=== PATIENT | male | born 1970 | race Caucasian/White ===

== ENCOUNTER 2018-05-23 14:17 | Inpatient (IN) | payer SELFPAY ==
[~2018-05-23] VITALS: Ht 170.2 cm; Wt 91.5 kg
[2018-05-23 14:24] VITALS: BP 147/91; PULSE 78; RESP 18; TEMP 98.3; O2SAT 98
--- NOTE | 2018-05-23 15:51 | PD ---
HPI Chief Complaint: GI Complaint Time Seen by Provider: 15:45 Travel History International Travel<30 days: No Contact w/Intl Traveler<30days: No Traveled to known affect area: No History of Present Illness HPI 47-year-old male with history of diabetes, presents emergency department for evaluation of epigastric pain with associated nausea and vomiting worsening since yesterday. Pain is constant, intermittently sharp and stabbing. Patient states he has a hiatal hernia and he believes this is the source of his problem. He denies any chest pain or tightness. He has had chills but is uncertain of fever. He states he drinks alcohol occasionally, last drinking on Father's Day. He denies any changes in bowel or bladder. He denies any hematemesis. He has no other symptoms to report. [facility] Past Medical History Diabetes: Yes Social History Alcohol Use: Yes Tobacco Use: No Allergies-Medications (Allergen,Severity, Reaction): Coded Allergies: No Known Allergies (Verified Allergy, Unknown, 05/23/18) Reported Meds & Prescriptions Reported Meds & Active Scripts Active Reported Novolin R Inj (Insulin Human Regular) 1,000 Unit/10 Ml Vial 20 Units SQ BID Review of Systems Except as stated in HPI: all other systems reviewed are Neg Physical Exam Narrative GENERAL: Well-nourished male patient, in no acute distress SKIN: Focused skin assessment warm/dry. HEAD: Atraumatic. Normocephalic. EYES: Pupils equal and round. No scleral icterus. No injection or drainage. ENT: No nasal bleeding or discharge. Mucous membranes pink and moist. NECK: Trachea midline. No JVD. CARDIOVASCULAR: Regular rate and rhythm. No murmur appreciated. RESPIRATORY: No accessory muscle use. Clear to auscultation. Breath sounds equal bilaterally. GASTROINTESTINAL: Abdomen soft, nondistended. Epigastric and left upper quadrant tenderness to palpation. Mild guarding. No rebound tenderness.. Hepatic and splenic margins not palpable. MUSCULOSKELETAL: No obvious deformities. No clubbing. No cyanosis. No edema. NEUROLOGICAL: Awake and alert. No obvious cranial nerve deficits. Motor grossly within normal limits. Normal speech. PSYCHIATRIC: Appropriate mood and affect; insight and judgment normal. Data Data Last Documented VS Vital Signs Date Time Temp Pulse Resp B/P (MAP) Pulse Ox O2 Delivery O2 Flow Rate FiO2 05/23/18 16:03 18 98 Room Air 05/23/18 14:24 98.3 78 147/91 (109) Orders Orders Complete Blood Count With Diff (05/23/18 15:55) Comprehensive Metabolic Panel (05/23/18 15:55) Lipase (05/23/18 15:55) Prothrombin Time / Inr (Pt) (05/23/18 15:55) Act Partial Throm Time (Ptt) (05/23/18 15:55) Urinalysis - C+S If Indicated (05/23/18 15:55) Iv Access Insert/Monitor (05/23/18 15:55) Ecg Monitoring (05/23/18 15:55) Oximetry (05/23/18 15:55) Pantoprazole Inj (Protonix Inj) (05/23/18 16:00) Sodium Chlor 0.9% 1000 Ml Inj (Ns 1000 M (05/23/18 15:55) Sodium Chloride 0.9% Flush (Ns Flush) (05/23/18 16:00) Al-Mag Hy-Si 40-40-4 Mg/Ml Liq (Mag-Al P (05/23/18 16:00) Lidocaine 2% Viscous (Xylocaine 2% Visco (05/23/18 16:00) Ct Abd/Pel W Iv Contrast(Rout) (05/23/18 ) Labs Laboratory Tests Test 05/23/18 16:15 05/23/18 17:00 White Blood Count 8.0 TH/MM3 Red Blood Count 5.10 MIL/MM3 Hemoglobin 15.2 GM/DL Hematocrit 44.5 % Mean Corpuscular Volume 87.4 FL Mean Corpuscular Hemoglobin 29.7 PG Mean Corpuscular Hemoglobin Concent 34.0 % Red Cell Distribution Width 13.5 % Platelet Count 215 TH/MM3 Mean Platelet Volume 9.5 FL Neutrophils (%) (Auto) 80.5 % Lymphocytes (%) (Auto) 12.0 % Monocytes (%) (Auto) 7.1 % Eosinophils (%) (Auto) 0.1 % Basophils (%) (Auto) 0.3 % Neutrophils # (Auto) 6.4 TH/MM3 Lymphocytes # (Auto) 1.0 TH/MM3 Monocytes # (Auto) 0.6 TH/MM3 Eosinophils # (Auto) 0.0 TH/MM3 Basophils # (Auto) 0.0 TH/MM3 CBC Comment DIFF FINAL Differential Comment Prothrombin Time 10.1 SEC Prothromb Time International Ratio 1.0 RATIO Activated Partial Thromboplast Time 23.3 SEC Blood Urea Nitrogen 14 MG/DL Creatinine 0.82 MG/DL Random Glucose 125 MG/DL Total Protein 7.9 GM/DL Albumin 4.0 GM/DL Calcium Level 8.7 MG/DL Alkaline Phosphatase 94 U/L Aspartate Amino Transf (AST/SGOT) 21 U/L Alanine Aminotransferase (ALT/SGPT) 22 U/L Total Bilirubin 0.6 MG/DL Sodium Level 138 MEQ/L Potassium Level 4.1 MEQ/L Chloride Level 105 MEQ/L Carbon Dioxide Level 24.2 MEQ/L Anion Gap 9 MEQ/L Estimat Glomerular Filtration Rate 100 ML/MIN Lipase 5842 U/L Urine Color YELLOW Urine Turbidity HAZY Urine pH 6.0 Urine Specific [place] 1.025 Urine Protein 30 mg/dL Urine Glucose (UA) NEG mg/dL Urine Ketones TRACE mg/dL Urine Occult Blood SMALL Urine Nitrite NEG Urine Bilirubin NEG Urine Urobilinogen LESS THAN 2 mg/dL Urine Leukocyte Esterase NEG Urine RBC 2 /hpf Urine WBC 1 /hpf Urine Mucus MANY /lpf Microscopic Urinalysis Comment CULT NOT INDICATED MDM Medical Decision Making Medical Screen Exam Complete: Yes Emergency Medical Condition: Yes Medical Record Reviewed: Yes Differential Diagnosis Pancreatitis versus cholecystitis versus gastritis versus indigestion Narrative Course 47-year-old male presents to the emergency department for evaluation of epigastric pain with associated nausea and vomiting since yesterday. Patient appears well. He does have epigastric left upper quadrant tenderness to palpation. He is treated for pain Laboratory Tests Test 05/23/18 16:15 05/23/18 17:00 White Blood Count 8.0 TH/MM3 Red Blood Count 5.10 MIL/MM3 Hemoglobin 15.2 GM/DL Hematocrit 44.5 % Mean Corpuscular Volume 87.4 FL Mean Corpuscular Hemoglobin 29.7 PG Mean Corpuscular Hemoglobin Concent 34.0 % Red Cell Distribution Width 13.5 % Platelet Count 215 TH/MM3 Mean Platelet Volume 9.5 FL Neutrophils (%) (Auto) 80.5 % Lymphocytes (%) (Auto) 12.0 % Monocytes (%) (Auto) 7.1 % Eosinophils (%) (Auto) 0.1 % Basophils (%) (Auto) 0.3 % Neutrophils # (Auto) 6.4 TH/MM3 Lymphocytes # (Auto) 1.0 TH/MM3 Monocytes # (Auto) 0.6 TH/MM3 Eosinophils # (Auto) 0.0 TH/MM3 Basophils # (Auto) 0.0 TH/MM3 CBC Comment DIFF FINAL Differential Comment Prothrombin Time 10.1 SEC Prothromb Time International Ratio 1.0 RATIO Activated Partial Thromboplast Time 23.3 SEC Blood Urea Nitrogen 14 MG/DL Creatinine 0.82 MG/DL Random Glucose 125 MG/DL Total Protein 7.9 GM/DL Albumin 4.0 GM/DL Calcium Level 8.7 MG/DL Alkaline Phosphatase 94 U/L Aspartate Amino Transf (AST/SGOT) 21 U/L Alanine Aminotransferase (ALT/SGPT) 22 U/L Total Bilirubin 0.6 MG/DL Sodium Level 138 MEQ/L Potassium Level 4.1 MEQ/L Chloride Level 105 MEQ/L Carbon Dioxide Level 24.2 MEQ/L Anion Gap 9 MEQ/L Estimat Glomerular Filtration Rate 100 ML/MIN Lipase 5842 U/L Urine Color YELLOW Urine Turbidity HAZY Urine pH 6.0 Urine Specific [place] 1.025 Urine Protein 30 mg/dL Urine Glucose (UA) NEG mg/dL Urine Ketones TRACE mg/dL Urine Occult Blood SMALL Urine Nitrite NEG Urine Bilirubin NEG Urine Urobilinogen LESS THAN 2 mg/dL Urine Leukocyte Esterase NEG Urine RBC 2 /hpf Urine WBC 1 /hpf Urine Mucus MANY /lpf Microscopic Urinalysis Comment CULT NOT INDICATED Labs are reviewed. Patient's lipase is 5842. [facility] has been ordered for further evaluation of this. Plan has been discussed with patient. He is in agreement with this plan of care. Diagnosis Primary Impression: Pancreatitis Qualified Codes: K85.90 - Acute pancreatitis without necrosis or infection, unspecified Admitting Information Admitting Physician Requests: Admit Condition: Stable GregoryLeanne cleary AG May 23, 2018 15:51
[2018-05-23] MEDS ORDERED: SODIUM CHLOR 0.9% 1000 ML INJ 1,000 ML IV SCH (15:55)
[2018-05-23] MEDS ORDERED: NOVORP2 SQ (15:57)
[2018-05-23] MEDS ORDERED: ALUMINUM/MAGNESIUM/SIMETH 30 ML CUP PO ONE (16:00)
[2018-05-23] MEDS ORDERED: LIDOCAINE VISCOUS 2% SOLN 15 ML UDC PO ONE (16:00)
[2018-05-23] MEDS ORDERED: SODIUM CHLORIDE 0.9% FLUSH 10 ML FLUSH IV FLUSH PRN ×2 (16:00→18:45)
[2018-05-23] MEDS ORDERED: PANTOPRAZOLE SODIUM 40 MG VIAL IVP ONE (16:00)
[2018-05-23 16:03] VITALS: RESP 18; O2SAT 98
[2018-05-23 16:46] LABS: AUTOMATED NEUTROPHIL # 6.4 TH/MM3 (1.8-7.7); BASOPHIL % 0.3 % (0.0-2.0); EOSINOPHIL % 0.1 % (0.0-4.0); HEMATOCRIT 44.5 % (39.0-51.0); HEMOGLOBIN 15.2 GM/DL (13.0-17.0); MEAN CELL VOLUME 87.4 FL (80.0-100.0); MEAN CORPUSCULAR HEMOGLOBIN 29.7 PG (27.0-34.0); MEAN PLATELET VOLUME 9.5 FL (7.0-11.0); MONO % 7.1 % (0.0-8.0); MONOCYTE # 0.6 TH/MM3 (0-0.9); NEUT % 80.5 % (16.0-70.0); PLATELET COUNT 215 TH/MM3 (150-450); RED CELL DISTRIBUTION WIDTH 13.5 % (11.6-17.2)
[2018-05-23 17:11] LABS: ALKALINE PHOSPHATASE 94 U/L (45-117); PROTHROMBIN TIME - PATIENT 10.1 SEC (9.8-11.6); TOTAL BILIRUBIN ADULT 0.6 MG/DL (0.2-1.0); TOTAL PROTEIN 7.9 GM/DL (6.4-8.2)
[2018-05-23 17:17] LABS: ALT (GPT) 22 U/L (12-78); AST (GOT) 21 U/L (15-37); BICARBONATE 24.2 MEQ/L (21.0-32.0); BLOOD UREA NITROGEN 14 MG/DL (7-18); CALCIUM 8.7 MG/DL (8.5-10.1); CHLORIDE 105 MEQ/L (98-107); CREATININE 0.82 MG/DL (0.60-1.30); GLOMERULAR FILTRATION RATE 100 ML/MIN (>89); GLUCOSE,RANDOM 125 MG/DL (74-106); SODIUM (NA) 138 MEQ/L (136-145)
[2018-05-23 17:39] LABS: BILIRUBIN, URINE NEG (NEG); BLOOD, URINE SMALL (NEG); GLUCOSE,URINE NEG (NEG); KETONE, URINE TRACE mg/dL (NEG); MUCUS URINE MANY /lpf (OCC); NITRITE,URINE NEG (NEG); URINE COLOR YELLOW (YELLW/STRAW); URINE LEUKOCYTE ESTERASE NEG (NEG)
--- NOTE | 2018-05-23 18:06 | PD ---
Physical Exam Narrative I, Dr. Solomon, have reviewed the advance practice practitioner's documentation and am in agreement, met with the patient face to face, made the diagnosis, and the medical decision making was done by me. *My assessment and Findings: Pancreatitis vs. gastritis vs. peptic ulcer disease. hiatal hernia 47yo M with DM and hiatal hernia here with epigastric abdominal pain for 2 days. Associated with nausea and vomiting. Denies any fever. Abdomen is soft , tender in epigastric region. No rebound tenderness or guarding. Labs reviewed, no leukocytosis. Lipase elevated [place] 5842. CT a/p showed acute pancreatitis on chronic pancreatitis. Pt admitted for acute pancreatitis. Data Data Last Documented VS Vital Signs Date Time Temp Pulse Resp B/P (MAP) Pulse Ox O2 Delivery O2 Flow Rate FiO2 05/23/18 19:03 62 17 139/82 (101) 97 05/23/18 18:38 21 05/23/18 16:03 Room Air 05/23/18 14:24 98.3 Orders Orders Complete Blood Count With Diff (05/23/18 15:55) Comprehensive Metabolic Panel (05/23/18 15:55) Lipase (05/23/18 15:55) Prothrombin Time / Inr (Pt) (05/23/18 15:55) Act Partial Throm Time (Ptt) (05/23/18 15:55) Urinalysis - C+S If Indicated (05/23/18 15:55) Iv Access Insert/Monitor (05/23/18 15:55) Ecg Monitoring (05/23/18 15:55) Oximetry (05/23/18 15:55) Pantoprazole Inj (Protonix Inj) (05/23/18 16:00) Sodium Chlor 0.9% 1000 Ml Inj (Ns 1000 M (05/23/18 15:55) Sodium Chloride 0.9% Flush (Ns Flush) (05/23/18 16:00) Al-Mag Hy-Si 40-40-4 Mg/Ml Liq (Mag-Al P (05/23/18 16:00) Lidocaine 2% Viscous (Xylocaine 2% Visco (05/23/18 16:00) Ct Abd/Pel W Iv Contrast(Rout) (05/23/18 ) Morphine Inj (Morphine Inj) (05/23/18 18:15) Ondansetron Odt (Zofran Odt) (05/23/18 18:15) Iohexol 350 Inj (Omnipaque 350 Inj) (05/23/18 18:33) Admit Order (Ed Use Only) (05/23/18 18:34) Bedside Glucose CYNTHIA.CSUGAR (05/23/18 18:33) Blood Glucose Goal (Criteria) (05/23/18 18:33) Hypoglycemia 70 Mg/Dl Or < (05/23/18 18:33) Notify Dr: Other (05/23/18 18:33) Dextrose 50% In Madalyn (Vial) Inj (D50w (Vi (05/23/18 18:45) Glucagon Inj (Glucagon Inj) (05/23/18 18:45) Insulin Aspart Supplemtl Scale (Novolog (05/23/18 21:00) Admit To Inpatient (05/23/18 ) Vital Signs (Adult) Q4H (05/23/18 18:33) Activity Oob With Assistance (05/23/18 18:33) Sodium Chlor 0.9% 1000 Ml Inj (Ns 1000 M (05/23/18 18:33) Sodium Chloride 0.9% Flush (Ns Flush) (05/23/18 18:45) Sodium Chloride 0.9% Flush (Ns Flush) (05/23/18 21:00) Acetaminophen (Tylenol) (05/23/18 18:45) Comprehensive Metabolic Panel (05/24/18 06:00) Complete Blood Count With Diff (05/24/18 06:00) Lipase (05/24/18 06:00) Resp Oxygen Niles C Titrat 1-4 L (05/23/18 ) Case Management Consult (05/23/18 18:33) Scd Bilateral/Knee High CYNTHIA.BID (05/23/18 18:33) Acetaminophen (Tylenol) (05/23/18 18:45) Acetamin-Hydrocod 325-5 Mg (Benavides 5-325 (05/23/18 18:45) Acetamin-Hydrocod 325-7.5 Mg (Benavides 7.5 (05/23/18 18:45) Naloxone Inj (Narcan Inj) (05/23/18 18:45) Docusate Sodium-Senna (Kari-Colace) (05/23/18 21:00) Magnesium Hydroxide Liq (Milk Of Magnesi (05/23/18 18:45) Sennosides (Senokot) (05/23/18 18:45) Bisacodyl Supp (Dulcolax Supp) (05/23/18 18:45) Lactulose Liq (Lactulose Liq) (05/23/18 18:45) Inpatient Certification (05/23/18 ) Morphine Inj (Morphine Inj) (05/23/18 18:45) Physician Name Changes (05/23/18 ) Insulin Human Regular Inj (Novolin R Inj (05/23/18 21:00) Labs Laboratory Tests Test 05/23/18 16:15 05/23/18 17:00 White Blood Count 8.0 TH/MM3 Red Blood Count 5.10 MIL/MM3 Hemoglobin 15.2 GM/DL Hematocrit 44.5 % Mean Corpuscular Volume 87.4 FL Mean Corpuscular Hemoglobin 29.7 PG Mean Corpuscular Hemoglobin Concent 34.0 % Red Cell Distribution Width 13.5 % Platelet Count 215 TH/MM3 Mean Platelet Volume 9.5 FL Neutrophils (%) (Auto) 80.5 % Lymphocytes (%) (Auto) 12.0 % Monocytes (%) (Auto) 7.1 % Eosinophils (%) (Auto) 0.1 % Basophils (%) (Auto) 0.3 % Neutrophils # (Auto) 6.4 TH/MM3 Lymphocytes # (Auto) 1.0 TH/MM3 Monocytes # (Auto) 0.6 TH/MM3 Eosinophils # (Auto) 0.0 TH/MM3 Basophils # (Auto) 0.0 TH/MM3 CBC Comment DIFF FINAL Differential Comment Prothrombin Time 10.1 SEC Prothromb Time International Ratio 1.0 RATIO Activated Partial Thromboplast Time 23.3 SEC Blood Urea Nitrogen 14 MG/DL Creatinine 0.82 MG/DL Random Glucose 125 MG/DL Total Protein 7.9 GM/DL Albumin 4.0 GM/DL Calcium Level 8.7 MG/DL Alkaline Phosphatase 94 U/L Aspartate Amino Transf (AST/SGOT) 21 U/L Alanine Aminotransferase (ALT/SGPT) 22 U/L Total Bilirubin 0.6 MG/DL Sodium Level 138 MEQ/L Potassium Level 4.1 MEQ/L Chloride Level 105 MEQ/L Carbon Dioxide Level 24.2 MEQ/L Anion Gap 9 MEQ/L Estimat Glomerular Filtration Rate 100 ML/MIN Lipase 5842 U/L Urine Color YELLOW Urine Turbidity HAZY Urine pH 6.0 Urine Specific [place] 1.025 Urine Protein 30 mg/dL Urine Glucose (UA) NEG mg/dL Urine Ketones TRACE mg/dL Urine Occult Blood SMALL Urine Nitrite NEG Urine Bilirubin NEG Urine Urobilinogen LESS THAN 2 mg/dL Urine Leukocyte Esterase NEG Urine RBC 2 /hpf Urine WBC 1 /hpf Urine Mucus MANY /lpf Microscopic Urinalysis Comment CULT NOT INDICATED MDM Supervised Visit with SUSANNA: Yes Diagnosis Primary Impression: Acute pancreatitis Qualified Codes: K85.90 - Acute pancreatitis without necrosis or infection, unspecified Admitting Information Admitting Physician Requests: Admit Evangelina Solomon DO May 23, 2018 18:06
[2018-05-23 18:14] VITALS: BP 145/87; PULSE 64; RESP 18; O2SAT 97
[2018-05-23] MEDS ORDERED: ONDANSETRON ODT 4 MG TAB PO ONE (18:15)
[2018-05-23] MEDS ORDERED: MORPHINE SULFATE 4 MG/ML INJ IV PUSH ONE (18:15)
[2018-05-23] MEDS ORDERED: IOHEXOL 350 MG/ML 10 ML VIAL (for RAD DIAG) IVCONTRAST ONE (18:33)
--- NOTE | 2018-05-23 18:42 | RADRPT ---
EXAM DATE: 05/23/2018 6:34 PM EDT AGE/SEX: 47 years / Male INDICATIONS: Epigastric pain and vomiting. CLINICAL DATA: This is the patient's initial encounter. Patient reports that signs and symptoms have been present for 1 day and indicates a pain score of 7/10. MEDICAL/SURGICAL HISTORY: Diabetes. Hiatal hernia. None. ORAL CONTRAST: No oral contrast ingested. RADIATION DOSE: 6.64 CTDI (mGy) COMPARISON: No prior exams available for comparison. TECHNIQUE: Multiple contiguous axial images were obtained through the abdomen and pelvis following b olus infusion of 84 ml Omnipaque 350 (iohexol) nonionic water-soluble contrast as a single exam dos e. No oral contrast ingested. Using automated exposure control and adjustment of the mA and/or kV ac cording to patient size, radiation dose was kept as low as reasonably achievable to obtain optimal di agnostic quality images. DICOM format image data is available electronically for review and comparis on. FINDINGS: Lung bases demonstrate some mild dependent atelectasis. Diffuse mild fatty liver. Spleen, adrenals an d left kidney unremarkable. 2.9 cm right renal cyst. There is chronic pancreatitis with extensive pancreatic calcifications and pancreatic ductal dilatati on to at least 8 mm. There is some stranding around the pancreas also suggesting acute pancreatitis. Some loculated fluid is seen between the pancreatic head in the stomach. It is unclear if this repres ents a gastric diverticulum or less likely a pancreatic pseudocyst. No calcified gallstones. Common bile duct is dilated to about 14 mm. No definite evidence for choledo cholithiasis. CONCLUSION: 1. Findings most characteristic of acute pancreatitis superimposed on chronic pancreatitis with panc reatic ductal dilatation. Stranding is predominantly around the pancreatic head. There is a 3 cm locu lated fluid collection between the pancreas and the stomach, probably a gastric diverticulum. No sign ificant free fluid. No free air. Fatty liver. Electronically signed by: Benton Olivas MD 05/23/2018 6:41 PM EDT
[2018-05-23] MEDS ORDERED: GLUCAGON 1 MG/ML VIAL OTHER PRN (18:45)
[2018-05-23] MEDS ORDERED: MAGNESIUM HYDROXIDE SUSP 30 ML CUP PO PRN (18:45)
[2018-05-23] MEDS ORDERED: MORPHINE SULFATE 4 MG/ML INJ IV PUSH PRN (18:45)
[2018-05-23] MEDS ORDERED: ACETAMINOPHEN 325 MG TAB PO PRN ×2 (18:45)
[2018-05-23] MEDS ORDERED: BISACODYL 10 MG SUPP RECTAL PRN (18:45)
[2018-05-23] MEDS ORDERED: ACETAMINOPHEN/HYDROcodone 325 MG/5 MG TAB PO PRN (18:45)
[2018-05-23] MEDS ORDERED: LACTULOSE SYRUP 20 GM/30 ML CUP PO PRN (18:45)
[2018-05-23] MEDS ORDERED: NALOXONE HCL 0.4 MG/ML AMP IV PUSH PRN (18:45)
[2018-05-23] MEDS ORDERED: SENNOSIDES 8.6 MG TAB PO PRN (18:45)
[2018-05-23] MEDS ORDERED: DEXTROSE 50% IN WATER 50 ML VIAL(D50) IV PUSH PRN (18:45)
[2018-05-23 19:03] VITALS: BP 139/82; PULSE 62; RESP 17; O2SAT 97
--- NOTE | 2018-05-23 19:03 | HHI.HP ---
[facility] No Primary Care Physician Admission Diagnosis Acute pancreatitis Diagnoses: (1) Pancreatitis Diagnosis: Principal (2) Alcohol use Diagnosis: Principal (3) DM (diabetes mellitus) Diagnosis: Principal Travel History International Travel<30 Days: No Contact w/Intl Traveler <30 Da: No Traveled to Known Affected Are: No History of Present Illness This is a 47-year-old [place] Speaking male with PMH of DM, Hiatal Hernia and h/ o Alcohol Abuse who presented to ER with complaints of severe epigastric pain x1 day. History obtained by me from patient directly in [place]. States he has a h/o of alcohol abuse, quit 2 months ago, however had 10-12 beers yesterday. Today had severe epigastric pain which he believed was from his hiatal hernia. Pain is severe, intermittent, 9/10, associated w/ nausea, some vomiting. Denies fever or chills. On arrival, BP 147/91, HR 78, O2 sat 98% on RA, Afebrile. CBC unremarkable. Chemistry essentially unremarkable except for BS 125. Lipase 5842. INR 1.0. UA negative for UTI. CT Abdomen/Pelvis acute pancreatitis superimposed on chronic pancreatitis with pancreatic ductal dilatation, gastric diverticulum. S/p Morphine and Zofran in ER w/ some improvement. Review of Systems Except as stated in HPI: all other systems reviewed are Neg ROS: 14 point review of systems otherwise negative. Past Family Social History Past Medical History PMH: DM, Hiatal Hernia and h/o Alcohol Abuse Past Surgical History PAST SURGICAL HISTORY: Tonsillectomy Allergies: Coded Allergies: No Known Allergies (Verified Allergy, Unknown, 05/23/18) Family History PAST FAMILY HISTORY: Reviewed, positive for DM. Social History PAST SOCIAL HISTORY: Positive for alcohol. Negative for tobacco or drugs. Physical Exam Vital Signs Vital Signs Date Time Temp Pulse Resp B/P (MAP) Pulse Ox O2 Delivery O2 Flow Rate FiO2 05/23/18 18:38 21 05/23/18 18:14 64 18 145/87 (106) 97 05/23/18 16:03 18 98 Room Air 05/23/18 15:55 18 05/23/18 14:24 98.3 78 18 147/91 (802) 98 Physical Exam PE: GENERAL: Pleasant male in no acute distress. Friend at bedside. HEENT: PERRLA, EOMI. No scleral icterus or conjunctival pallor. No lid lag or facial droop. CARDIOVASCULAR: Regular rate and rhythm. No obvious murmurs to auscultation. No chest tenderness to palpation. RESPIRATORY: No obvious rhonchi or wheezing. Clear to auscultation. Breath sounds equal bilaterally. GASTROINTESTINAL: Abdomen soft, epigastric tenderness to palpation, nondistended. BS normal. MUSCULOSKELETAL: Extremities without clubbing, cyanosis, or edema. No obvious deformities. NEUROLOGICAL: Awake, alert and oriented x4. No focal neurologic deficits. Moving both upper and lower extremities spontaneously. Laboratory Laboratory Tests Test 05/23/18 16:15 05/23/18 17:00 White Blood Count 8.0 Red Blood Count 5.10 Hemoglobin 15.2 Hematocrit 44.5 Mean Corpuscular Volume 87.4 Mean Corpuscular Hemoglobin 29.7 Mean Corpuscular Hemoglobin Concent 34.0 Red Cell Distribution Width 13.5 Platelet Count 215 Mean Platelet Volume 9.5 Neutrophils (%) (Auto) 80.5 Lymphocytes (%) (Auto) 12.0 Monocytes (%) (Auto) 7.1 Eosinophils (%) (Auto) 0.1 Basophils (%) (Auto) 0.3 Neutrophils # (Auto) 6.4 Lymphocytes # (Auto) 1.0 Monocytes # (Auto) 0.6 Eosinophils # (Auto) 0.0 Basophils # (Auto) 0.0 CBC Comment DIFF FINAL Differential Comment Prothrombin Time 10.1 Prothromb Time International Ratio 1.0 Activated Partial Thromboplast Time 23.3 Blood Urea Nitrogen 14 Creatinine 0.82 Random Glucose 125 Total Protein 7.9 Albumin 4.0 Calcium Level 8.7 Alkaline Phosphatase 94 Aspartate Amino Transf (AST/SGOT) 21 Alanine Aminotransferase (ALT/SGPT) 22 Total Bilirubin 0.6 Sodium Level 138 Potassium Level 4.1 Chloride Level 105 Carbon Dioxide Level 24.2 Anion Gap 9 Estimat Glomerular Filtration Rate 100 Lipase 5842 Urine Color YELLOW Urine Turbidity HAZY Urine pH 6.0 Urine Specific [place] 1.025 Urine Protein 30 Urine Glucose (UA) NEG Urine Ketones TRACE Urine Occult Blood SMALL Urine Nitrite NEG Urine Bilirubin NEG Urine Urobilinogen LESS THAN 2 Urine Leukocyte Esterase NEG Urine RBC 2 Urine WBC 1 Urine Mucus MANY Microscopic Urinalysis Comment CULT NOT INDICATED Result Diagram: 05/23/18 1615 05/23/18 1615 Caprini VTE Risk Assessment Caprini VTE Risk Assessment: No/Low Risk (score <= 1) Caprini Risk Assessment Model Point Value = 1 Point Value = 2 Point Value = 3 Point Value = 5 Age 41-60 Minor surgery BMI > 25 kg/m2 Swollen legs Varicose veins or History of unexplained or recurrent spontaneous Oral contraceptives or hormone replacement Sepsis (< 1 month) Serious lung disease, including pneumonia (< 1 month) Abnormal pulmonary function Acute myocardial infarction Congestive heart failure (< 1 month) History of inflammatory bowel disease Medical patient at bed rest Age 61-74 Arthroscopic surgery Major open surgery (> 45 min) Laparoscopic surgery (> 45 min) Malignancy Confined to bed (> 72 hours) Immobilizing plaster cast Central venous access Age >= 75 History of VTE Family history of VTE Factor V Leiden Prothrombin [id number] Lupus anticoagulant Anticardiolipin antibodies Elevated serum homocysteine Heparin-induced thrombocytopenia Other congenital or acquired thrombophilia Stroke (< 1 month) Elective arthroplasty Hip, pelvis, or leg fracture Acute spinal cord injury (< 1 month) Prophylaxis Regimen Total Risk Factor Score Risk Level Prophylaxis Regimen 0-1 Low Early ambulation 2 Moderate Order ONE of the following: *Sequential Compression Device (SCD) *Heparin 5000 units SQ BID 3-4 Higher Order ONE of the following medications: *Heparin 5000 units SQ TID *Enoxaparin/Lovenox 40 mg SQ daily (WT < 150 kg, CrCl > 30 mL/min) *Enoxaparin/Lovenox 30 mg SQ daily (WT < 150 kg, CrCl > 10-29 mL/min) *Enoxaparin/Lovenox 30 mg SQ BID (WT < 150 kg, CrCl > 30 mL/min) AND/OR *Sequential Compression Device (SCD) 5 or more Highest Order ONE of the following medications: *Heparin 5000 units SQ TID (Preferred with Epidurals) *Enoxaparin/Lovenox 40 mg SQ daily (WT < 150 kg, CrCl > 30 mL/min) *Enoxaparin/Lovenox 30 mg SQ daily (WT < 150 kg, CrCl > 10-29 mL/min) *Enoxaparin/Lovenox 30 mg SQ BID (WT < 150 kg, CrCl > 30 mL/min) AND *Sequential Compression Device (SCD) Assessment and Plan Problem List: (1) Pancreatitis ICD Code: K85.90 - Acute pancreatitis without necrosis or infection, unspecified Status: Acute (2) Alcohol use ICD Code: Z78.9 - Other specified health status (3) DM (diabetes mellitus) ICD Code: E11.9 - Type 2 diabetes mellitus without complications Assessment and Plan A/P: 1. Pancreatitis: Lipase 5842, CT Abd/Pelvis w/ acute on chronic pancreatitis, images reviewed by me. Secondary to alcohol abuse. Protonix, analgesics/ antiemetics as needed, repeat Lipase. Advance diet as tolerated. 2. Alcohol Use: H/o Alcohol Abuse, quit 2-3 months ago, now drinks once a week 10-12 beers. Pt counselled. CIWA, Seizure Precautions, MVT/Thiamine/ Folate. 3. DM: Sliding scale w/ Accu-Cheks, resume home Insulin 4. DVT Prophylaxis: SCD/Teds 5. Social work for DC planning as needed. 6. Case discussed at length with the ER physician, lab/record/imaging reviewed by me. Physician Certification 2 Midnight Certification Type: Admission for Inpatient Services Order for Inpatient Services The services are ordered in accordance with Medicare regulations or non- Medicare payer requirements, as applicable. In the case of services not specified as inpatient-only, they are appropriately provided as inpatient services in accordance with the 2-midnight benchmark. Estimated LOS (days): 2 days is the estimated time the patient will need to remain in the hospital, assuming treatment plan goals are met and no additional complications. Post-Hospital Plan: Not yet determined Problem Qualifiers (1) Pancreatitis: Qualified Codes: K85.90 - Acute pancreatitis without necrosis or infection, unspecified Isabell Redd MD May 23, 2018 19:03
[2018-05-23] MEDS ORDERED: HALOPERIDOL LACTATE 5 MG/ML AMP IM PRN (19:15)
[2018-05-23] MEDS ORDERED: LORazepam 2 MG/ML VIAL IV PUSH PRN ×4 (19:15)
[2018-05-23] MEDS ORDERED: LORazepam 1 MG TAB PO PRN (19:15)
[2018-05-23] MEDS ORDERED: FLUMAZENIL 0.5 MG/5 ML VIAL IV PUSH PRN (19:15)
[2018-05-23] MEDS ORDERED: LORazepam 2 MG TAB PO PRN (19:15)
[2018-05-23] MEDS: SODIUM CHLOR 0.9% 1000 ML INJ 1,000 ML IV SCH (20:01)
[2018-05-23] MEDS: INSULIN HUMAN REGULAR 1,000 UNITS/10 ML VIAL SQ SCH (21:00)
[2018-05-23] MEDS: INSULIN ASPART SUPPLEMENTAL SCALE SQ SCH (21:00)
[2018-05-23] MEDS: SODIUM CHLORIDE 0.9% FLUSH 10 ML FLUSH IV FLUSH SCH (21:00)
[2018-05-23 21:45] VITALS: BP 137/75; PULSE 58; RESP 20; TEMP 98.2; O2SAT 95
[2018-05-23] MEDS: ACETAMINOPHEN/HYDROcodone 325 MG/7.5 MG TAB PO PRN (21:51)
[2018-05-23] MEDS: DOCUSATE SODIUM 50 MG/SENNA 8.6 MG TAB PO SCH (21:51)
[2018-05-24] VITALS (7 sets, daily range): BP systolic 107–145; BP diastolic 63–78; PULSE 52–66; RESP 16–20; TEMP 97.1–98.6; O2SAT 95–99
[2018-05-24] MEDS: SODIUM CHLOR 0.9% 1000 ML INJ 1,000 ML IV SCH ×2 (05:46→14:33)
[2018-05-24 06:35] LABS: AUTOMATED NEUTROPHIL # 2.6 TH/MM3 (1.8-7.7); BASOPHIL % 0.8 % (0.0-2.0); EOSINOPHIL # 0.1 TH/MM3 (0-0.4); HEMATOCRIT 38.6 % (39.0-51.0); HEMOGLOBIN 13.1 GM/DL (13.0-17.0); LYMPH % 24.3 % (9.0-44.0); MEAN CELL VOLUME 87.9 FL (80.0-100.0); MEAN CORPUSCULAR HEMOGLOBIN 29.9 PG (27.0-34.0); MEAN PLATELET VOLUME 9.2 FL (7.0-11.0); MONO % 8.4 % (0.0-8.0); MONOCYTE # 0.3 TH/MM3 (0-0.9); NEUT % 64.5 % (16.0-70.0); PLATELET COUNT 139 TH/MM3 (150-450); RED BLOOD COUNT 4.39 MIL/MM3 (4.50-5.90); RED CELL DISTRIBUTION WIDTH 13.4 % (11.6-17.2)
[2018-05-24 07:06] LABS: ALKALINE PHOSPHATASE 74 U/L (45-117); ALT (GPT) 20 U/L (12-78); AST (GOT) 16 U/L (15-37); BICARBONATE 25.7 MEQ/L (21.0-32.0); BLOOD UREA NITROGEN 12 MG/DL (7-18); CALCIUM 7.8 MG/DL (8.5-10.1); CHLORIDE 106 MEQ/L (98-107); CREATININE 0.78 MG/DL (0.60-1.30); GLOMERULAR FILTRATION RATE 106 ML/MIN (>89); GLUCOSE,RANDOM 143 MG/DL (74-106); SODIUM (NA) 140 MEQ/L (136-145); TOTAL BILIRUBIN ADULT 0.6 MG/DL (0.2-1.0); TOTAL PROTEIN 6.1 GM/DL (6.4-8.2)
[2018-05-24] MEDS: DOCUSATE SODIUM 50 MG/SENNA 8.6 MG TAB PO SCH ×2 (07:42→20:24)
[2018-05-24] MEDS: THIAMINE HCL 100 MG TAB PO SCH (07:42)
[2018-05-24] MEDS: PANTOPRAZOLE SOD 40 MG DELAYED RELEASE TAB PO SCH ×2 (07:42→20:24)
[2018-05-24] MEDS: FOLIC ACID 1 MG TAB PO SCH (07:42)
[2018-05-24] MEDS: MULTIVITAMINS/MINERALS THERAPEUTIC TAB PO SCH (07:42)
[2018-05-24] MEDS: INSULIN ASPART SUPPLEMENTAL SCALE SQ SCH ×4 (07:48→20:25)
[2018-05-24] MEDS: SODIUM CHLORIDE 0.9% FLUSH 10 ML FLUSH IV FLUSH SCH ×2 (07:49→20:29)
[2018-05-24] MEDS: INSULIN HUMAN REGULAR 1,000 UNITS/10 ML VIAL SQ SCH ×2 (07:49→20:24)
[2018-05-24] MEDS: ACETAMINOPHEN/HYDROcodone 325 MG/7.5 MG TAB PO PRN (07:59)
--- NOTE | 2018-05-24 10:47 | HHI.PR ---
Subjective Remarks This is a 47-year-old Italian Speaking male with PMH of DM, Hiatal Hernia and h/ o Alcohol Abuse who presented to ER with complaints of severe epigastric pain x1 day. History obtained by me from patient directly in Italian. States he has a h/o of alcohol abuse, quit 2 months ago, however had 10-12 beers yesterday. Today had severe epigastric pain which he believed was from his hiatal hernia. Pain is severe, intermittent, 9/10, associated w/ nausea, some vomiting. Denies fever or chills. On arrival, BP 147/91, HR 78, O2 sat 98% on RA, Afebrile. CBC unremarkable. Chemistry essentially unremarkable except for BS 125. Lipase 5842. INR 1.0. UA negative for UTI. CT Abdomen/Pelvis acute pancreatitis superimposed on chronic pancreatitis with pancreatic ductal dilatation, gastric diverticulum. S/p Morphine and Zofran in ER w/ some improvement. 6- WANTS TO EAT DENIES ANY ABDOMINAL PAIN WILL TRY FULL LIQUIDS ONLY SPEAKS [place] [facility] RN AND PT AND CM NEEDS TO NEVER DRINK ALCOHOL EVER AGAIN Advance diet as tolerated today If a.m. labs are stable discharge in next 24-48 hours Objective Vitals Vital Signs Date Time Temp Pulse Resp B/P (MAP) Pulse Ox O2 Delivery O2 Flow Rate FiO2 05/24/18 08:00 98.1 52 17 133/71 (91) 96 05/24/18 04:00 98.0 55 18 107/65 (79) 99 05/24/18 00:00 97.9 66 20 145/78 (100) 95 05/23/18 23:49 21 05/23/18 21:45 98.2 58 20 137/75 (95) 95 05/23/18 19:03 62 17 139/82 (101) 97 05/23/18 18:38 21 05/23/18 18:14 64 18 145/87 (106) 97 05/23/18 16:03 18 98 Room Air 05/23/18 15:55 18 05/23/18 14:24 98.3 78 18 147/91 (109) 98 I/O 05/23/18 05/23/18 05/23/18 05/24/18 05/24/18 05/24/18 07:00 15:00 23:00 07:00 15:00 23:00 Intake Total 1480 ml Output Total 3 ml Balance 1477 ml Intake Oral 480 ml IV Total 1000 ml Output Urine Total 3 ml Result Diagram: 05/24/18 0545 05/24/18 0545 Other Results Laboratory Tests Test 05/23/18 16:15 05/23/18 17:00 05/24/18 05:45 White Blood Count 8.0 TH/MM3 4.0 TH/MM3 Red Blood Count 5.10 MIL/MM3 4.39 MIL/MM3 Hemoglobin 15.2 GM/DL 13.1 GM/DL Hematocrit 44.5 % 38.6 % Mean Corpuscular Volume 87.4 FL 87.9 FL Mean Corpuscular Hemoglobin 29.7 PG 29.9 PG Mean Corpuscular Hemoglobin Concent 34.0 % 34.0 % Red Cell Distribution Width 13.5 % 13.4 % Platelet Count 215 TH/MM3 139 TH/MM3 Mean Platelet Volume 9.5 FL 9.2 FL Neutrophils (%) (Auto) 80.5 % 64.5 % Lymphocytes (%) (Auto) 12.0 % 24.3 % Monocytes (%) (Auto) 7.1 % 8.4 % Eosinophils (%) (Auto) 0.1 % 2.0 % Basophils (%) (Auto) 0.3 % 0.8 % Neutrophils # (Auto) 6.4 TH/MM3 2.6 TH/MM3 Lymphocytes # (Auto) 1.0 TH/MM3 1.0 TH/MM3 Monocytes # (Auto) 0.6 TH/MM3 0.3 TH/MM3 Eosinophils # (Auto) 0.0 TH/MM3 0.1 TH/MM3 Basophils # (Auto) 0.0 TH/MM3 0.0 TH/MM3 CBC Comment DIFF FINAL DIFF FINAL Differential Comment Prothrombin Time 10.1 SEC Prothromb Time International Ratio 1.0 RATIO Activated Partial Thromboplast Time 23.3 SEC Blood Urea Nitrogen 14 MG/DL 12 MG/DL Creatinine 0.82 MG/DL 0.78 MG/DL Random Glucose 125 MG/DL 143 MG/DL Total Protein 7.9 GM/DL 6.1 GM/DL Albumin 4.0 GM/DL 3.0 GM/DL Calcium Level 8.7 MG/DL 7.8 MG/DL Alkaline Phosphatase 94 U/L 74 U/L Aspartate Amino Transf (AST/SGOT) 21 U/L 16 U/L Alanine Aminotransferase (ALT/SGPT) 22 U/L 20 U/L Total Bilirubin 0.6 MG/DL 0.6 MG/DL Sodium Level 138 MEQ/L 140 MEQ/L Potassium Level 4.1 MEQ/L 4.0 MEQ/L Chloride Level 105 MEQ/L 106 MEQ/L Carbon Dioxide Level 24.2 MEQ/L 25.7 MEQ/L Anion Gap 9 MEQ/L 8 MEQ/L Estimat Glomerular Filtration Rate 100 ML/MIN 106 ML/MIN Lipase 5842 U/L 1002 U/L Urine Color YELLOW Urine Turbidity HAZY Urine pH 6.0 Urine Specific [place] 1.025 Urine Protein 30 mg/dL Urine Glucose (UA) NEG mg/dL Urine Ketones TRACE mg/dL Urine Occult Blood SMALL Urine Nitrite NEG Urine Bilirubin NEG Urine Urobilinogen LESS THAN 2 mg/dL Urine Leukocyte Esterase NEG Urine RBC 2 /hpf Urine WBC 1 /hpf Urine Mucus MANY /lpf Microscopic Urinalysis Comment CULT NOT INDICATED Imaging Last Impressions Abdomen/Pelvis CT 05/23/18 0000 Signed Impressions: CONCLUSION: 1. Findings most characteristic of acute pancreatitis superimposed on chronic pancreatitis with pancreatic ductal dilatation. Stranding is predominantly arou nd the pancreatic head. There is a 3 cm loculated fluid collection between the pancreas and the stomach, probably a gastric diverticulum. No significant free fluid. No free air. Fatty liver. Objective Remarks GENERAL: Awake alert and oriented 3 talkative and cooperative only speaks Italian --explained the patient in my Italian as best I could SKIN: Warm and dry. HEAD: Atraumatic. Normocephalic. EYES: Pupils equal and round. No scleral icterus. No injection or drainage. Extraocular muscles intact ENT: No nasal bleeding or discharge. Mucous membranes pink and moist. Tongue is midline NECK: Trachea midline. No JVD. Supple CARDIOVASCULAR: Regular rate and rhythm. S1-S2 no S3 or S4 RESPIRATORY: No accessory muscle use. Clear to auscultation. Breath sounds equal bilaterally. GASTROINTESTINAL: Abdomen soft, non-tender, nondistended. Hepatic and splenic margins not palpable. No abdominal tenderness at this time MUSCULOSKELETAL: Extremities without clubbing, cyanosis, or edema. No obvious deformities. NEUROLOGICAL: Awake and alert. No obvious cranial nerve deficits. Motor grossly within normal limits. Five out of 5 muscle strength in the arms and legs. Normal speech. PSYCHIATRIC: INAppropriate mood and affect; insight and judgment ABnormal. Medications and IVs Current Medications Pantoprazole Sodium (Protonix Inj) 40 mg ONCE ONCE IVP Last administered on at 16:09; Start 05/23/18 at 16:00; Stop 05/23/18 at 16:01; Status DC Sodium Chloride 1,000 ml @ 1,000 mls/hr Q1H IV Last administered on 05/23/18at 16:08; Start 05/23/18 at 15:55; Stop 05/23/18 at 16:54; Status DC Sodium Chloride (NS Flush) 2 ml UNSCH PRN IV FLUSH FLUSH AFTER USING IV ACCESS Last administered on 05/23/18at 16:09; Start 05/23/18 at 16:00; Stop 05/23/18 at 19:35; Status DC Al Hydrox/Mg Hydrox/Simethicone (Mag-Al Plus Susp Liq) 30 ml ONCE ONCE PO Last administered on 05/23/18at 16:09; Start 05/23/18 at 16:00; Stop 05/23/18 at 16:01; Status DC Lidocaine HCl (Xylocaine 2% Viscous) 15 ml ONCE ONCE PO Last administered on at 16:09; Start 05/23/18 at 16:00; Stop 05/23/18 at 16:01; Status DC Morphine Sulfate (Morphine Inj) 4 mg ONCE ONCE IV PUSH Last administered on at 18:12; Start 05/23/18 at 18:15; Stop 05/23/18 at 18:16; Status DC Ondansetron HCl (Zofran Odt) 4 mg ONCE ONCE PO Last administered on at 18:12; Start 05/23/18 at 18:15; Stop 05/23/18 at 18:16; Status DC Iohexol (Omnipaque 350 Inj) 84 ml STK-MED ONCE IVCONTRAST ; Start 05/23/18 at 18 :33; Stop 05/23/18 at 18:34; Status DC Dextrose (D50w (Vial) Inj) 50 ml UNSCH PRN IV PUSH HYPOGLYCEMIA-SEE COMMENTS; Start 05/23/18 at 18:45 Glucagon (Glucagon Inj) 1 mg UNSCH PRN OTHER HYPOGLYCEMIA-SEE COMMENTS; Start 05/23/18 at 18:45 Insulin Aspart (NovoLOG SUPPLEMENTAL SCALE) 1 ACHS SLIDING SCALE SQ ; Start at 21:00 Sodium Chloride 1,000 ml @ 100 mls/hr Q10H IV Last administered on 05/24/18at 05:46; Start 05/23/18 at 18:33 Sodium Chloride (NS Flush) 2 ml UNSCH PRN IV FLUSH FLUSH AFTER USING IV ACCESS ; Start 05/23/18 at 18:45 Sodium Chloride (NS Flush) 2 ml BID IV FLUSH ; Start 05/23/18 at 21:00 Acetaminophen (Tylenol) 650 mg Q4H PRN PO TEMP > 100.4; Start 05/23/18 at 18:45 Acetaminophen (Tylenol) 650 mg Q6H PRN PO PAIN SCALE 1 TO 2; Start 05/23/18 at 18:45 Acetaminophen/ Hydrocodone Bitart ([place] 5-325 Mg) 1 tab Q4H PRN PO PAIN SCALE 3 TO 5; Start 05/23/18 at 18:45 Acetaminophen/ Hydrocodone Bitart ([place] 7.5-325 Mg) 1 tab Q4H PRN PO PAIN SCALE 6 TO 10 Last administered on 05/24/18at 07:59; Start 05/23/18 at 18:45 Morphine Sulfate (Morphine Inj) 2 mg Q3H PRN IV PUSH BREAKTHROUGH PAIN; Start 05/23/18 at 18:45 Naloxone HCl (Narcan Inj) 0.4 mg UNSCH PRN IV PUSH SEE LABEL COMMENTS; Start at 18:45 Senna/Docusate Sodium (Kari-Colace) 1 tab BID PO Last administered on at 07:42; Start 05/23/18 at 21:00 Magnesium Hydroxide (Milk Of Magnesia Liq) 30 ml Q12H PRN PO Mild constipation ; Start 05/23/18 at 18:45 Sennosides (Senokot) 17.2 mg Q12H PRN PO Moderate constipation Last administered on 05/24/18at 07:42; Start 05/23/18 at 18:45 Bisacodyl (Dulcolax Supp) 10 mg DAILY PRN RECTAL SEVERE CONSITIPATION; Start at 18:45 Lactulose (Lactulose Liq) 30 ml DAILY PRN PO SEVERE CONSITIPATION; Start at 18:45 Insulin Human Regular (NovoLIN R INJ) 20 units BID SQ Last administered on 05/24at 07:49; Start 05/23/18 at 21:00 Folic Acid (Folate) 1 mg DAILY PO Last administered on 05/24/18at 07:42; Start 05/24/18 at 09:00; Stop 05/29/18 at 08:59 Thiamine HCl (Vitamin B1) 100 mg DAILY PO Last administered on 05/24/18at 07:42 ; Start 05/24/18 at 09:00 Multivitamins/ Minerals Therapeutic (Theragran M Tab) 1 tab DAILY PO Last administered on 05/24/18at 07:42; Start 05/24/18 at 09:00; Stop 05/29/18 at 08:59 Flumazenil (Romazicon Inj) 0.2 mg Q1M PRN IV PUSH SEE LABEL COMMENTS; Start at 19:15 Lorazepam (Ativan) 1 mg Q4H PRN PO CIWA 8 - 10; Start 05/23/18 at 19:15 Lorazepam (Ativan Inj) 1 mg Q4H PRN IV PUSH CIWA 8 - 10; Start 05/23/18 at 19: 15 Lorazepam (Ativan) 2 mg Q2H PRN PO CIWA 11-14; Start 05/23/18 at 19:15 Lorazepam (Ativan Inj) 2 mg Q2H PRN IV PUSH CIWA 11-14; Start 05/23/18 at 19:15 Lorazepam (Ativan Inj) 2 mg Q1H PRN IV PUSH CIWA 15-20; Start 05/23/18 at 19:15 Lorazepam (Ativan Inj) 2 mg Q15M PRN IV PUSH CIWA > 20; Start 05/23/18 at 19:15 Haloperidol Lactate (Haldol Inj) 2 mg Q15M PRN IM SEE LABEL COMMENTS; Start at 19:15 Pantoprazole Sodium (Protonix) 40 mg Q12HR PO Last administered on 05/24/18at 07 :42; Start 05/24/18 at 09:00 A/P Problem List: (1) Pancreatitis ICD Code: K85.90 - Acute pancreatitis without necrosis or infection, unspecified Status: Acute (2) Alcohol use ICD Code: Z78.9 - Other specified health status (3) DM (diabetes mellitus) ICD Code: E11.9 - Type 2 diabetes mellitus without complications Assessment and Plan 1. Pancreatitis: Lipase 5842, CT Abd/Pelvis w/ acute on chronic pancreatitis, images reviewed by me. Secondary to alcohol abuse. Protonix, analgesics/ antiemetics as needed, repeat Lipase. Advance diet as tolerated. 2. Alcohol Use: H/o Alcohol Abuse, quit 2-3 months ago, now drinks once a week 10-12 beers. Pt counselled. CIWA, Seizure Precautions, MVT/Thiamine/ Folate. 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 DM: Sliding scale w/ Accu-Cheks, resume home Insulin 4. DVT Prophylaxis: SCD/Teds 5. Social work for DC planning as needed. Advance diet full liquids at lunch-regular diet at dinner A.m. labs Pain control If labs are stable tomorrow discharged home with no alcohol ever again Discharge Planning Next 24-48 hours once tolerating a diet Problem Qualifiers (1) Pancreatitis: Qualified Codes: K85.90 - Acute pancreatitis without necrosis or infection, unspecified Guero Britt DO May 24, 2018 10:47
[2018-05-25] MEDS: SODIUM CHLOR 0.9% 1000 ML INJ 1,000 ML IV SCH ×2 (00:47→08:49)
[2018-05-25 00:50] VITALS: BP 115/56; PULSE 51; RESP 16; TEMP 98.6; O2SAT 98
[2018-05-25 04:40] VITALS: BP 115/63; PULSE 58; RESP 16; TEMP 98; O2SAT 99
[2018-05-25] MEDS: INSULIN ASPART SUPPLEMENTAL SCALE SQ SCH ×2 (07:33→12:00)
[2018-05-25 08:00] VITALS: BP 120/58; PULSE 69; RESP 18; TEMP 97.9; O2SAT 95
[2018-05-25] MEDS: PANTOPRAZOLE SOD 40 MG DELAYED RELEASE TAB PO SCH (08:49)
[2018-05-25] MEDS: INSULIN HUMAN REGULAR 1,000 UNITS/10 ML VIAL SQ SCH (08:49)
[2018-05-25] MEDS: DOCUSATE SODIUM 50 MG/SENNA 8.6 MG TAB PO SCH (08:49)
[2018-05-25] MEDS: SODIUM CHLORIDE 0.9% FLUSH 10 ML FLUSH IV FLUSH SCH (08:49)
[2018-05-25] MEDS: THIAMINE HCL 100 MG TAB PO SCH (08:49)
[2018-05-25] MEDS: FOLIC ACID 1 MG TAB PO SCH (08:49)
[2018-05-25] MEDS: MULTIVITAMINS/MINERALS THERAPEUTIC TAB PO SCH (08:49)
[2018-05-25 09:24] VITALS: O2SAT 97
[2018-05-25 09:53] LABS: AUTOMATED NEUTROPHIL # 2.6 TH/MM3 (1.8-7.7); EOSINOPHIL # 0.1 TH/MM3 (0-0.4); EOSINOPHIL % 2.5 % (0.0-4.0); HEMATOCRIT 39.3 % (39.0-51.0); HEMOGLOBIN 13.3 GM/DL (13.0-17.0); LYMPH % 25.4 % (9.0-44.0); LYMPHOCYTE # 1.1 TH/MM3 (1.0-4.8); MEAN CORPUSCULAR HEMOGLOBIN 30.2 PG (27.0-34.0); MEAN CORPUSCULAR HGB CONC 33.9 % (32.0-36.0); MEAN PLATELET VOLUME 9.7 FL (7.0-11.0); MONO % 8.5 % (0.0-8.0); MONOCYTE # 0.4 TH/MM3 (0-0.9); NEUT % 62.6 % (16.0-70.0); PLATELET COUNT 139 TH/MM3 (150-450); RED BLOOD COUNT 4.41 MIL/MM3 (4.50-5.90); RED CELL DISTRIBUTION WIDTH 13.6 % (11.6-17.2); WHITE BLOOD COUNT 4.2 TH/MM3 (4.0-11.0)
--- NOTE | 2018-05-25 10:25 | HHI.PR ---
Subjective Remarks This is a 47-year-old Persian Speaking male with PMH of DM, Hiatal Hernia and h/ o Alcohol Abuse who presented to ER with complaints of severe epigastric pain x1 day. History obtained by me from patient directly in Persian. States he has a h/o of alcohol abuse, quit 2 months ago, however had 10-12 beers yesterday. Today had severe epigastric pain which he believed was from his hiatal hernia. Pain is severe, intermittent, 9/10, associated w/ nausea, some vomiting. Denies fever or chills. On arrival, BP 147/91, HR 78, O2 sat 98% on RA, Afebrile. CBC unremarkable. Chemistry essentially unremarkable except for BS 125. Lipase 5842. INR 1.0. UA negative for UTI. CT Abdomen/Pelvis acute pancreatitis superimposed on chronic pancreatitis with pancreatic ductal dilatation, gastric diverticulum. S/p Morphine and Zofran in ER w/ some improvement. 6-24 WANTS TO EAT DENIES ANY ABDOMINAL PAIN WILL TRY FULL LIQUIDS ONLY SPEAKS [place] DW RN AND PT AND CM NEEDS TO NEVER DRINK ALCOHOL EVER AGAIN Advance diet as tolerated today If a.m. labs are stable discharge in next 24-48 hours 05-25 TOLERATING A DIET WANTS TO GO HOME DC TO HOME TODAY CM FOR PCP FOLLOW UP NO ALCOHOL EVER AGAIN Objective Vitals Vital Signs Date Time Temp Pulse Resp B/P (MAP) Pulse Ox O2 Delivery O2 Flow Rate FiO2 05/25/18 09:24 97 21 05/25/18 08:00 97.9 69 18 120/58 (78) 95 05/25/18 04:40 98.0 58 16 115/63 (80) 99 05/25/18 00:50 98.6 51 16 115/56 (75) 98 05/24/18 22:20 98 21 05/24/18 20:50 98.6 61 16 112/63 (79) 96 05/24/18 16:49 97.1 61 18 126/71 (89) 96 05/24/18 13:51 21 05/24/18 11:23 97.9 63 16 126/68 (87) 98 I/O 05/24/18 05/24/18 05/24/18 05/25/18 05/25/18 05/25/18 07:00 15:00 23:00 07:00 15:00 23:00 Intake Total 1480 ml 2424 ml 480 ml Output Total 3 ml Balance 1477 ml 2424 ml 480 ml Intake Oral 480 ml 480 ml IV Total 1000 ml 2424 ml Output Urine Total 3 ml # Voids 2 # Bowel Movements 0 Result Diagram: 05/25/18 0745 05/24/18 0545 Other Results Laboratory Tests Test 05/23/18 16:15 05/23/18 17:00 05/24/18 05:45 05/25/18 07:45 White Blood Count 8.0 TH/MM3 4.0 TH/MM3 4.2 TH/MM3 Red Blood Count 5.10 MIL/MM3 4.39 MIL/MM3 4.41 MIL/MM3 Hemoglobin 15.2 GM/DL 13.1 GM/DL 13.3 GM/DL Hematocrit 44.5 % 38.6 % 39.3 % Mean Corpuscular Volume 87.4 FL 87.9 FL 89.0 FL Mean Corpuscular Hemoglobin 29.7 PG 29.9 PG 30.2 PG Mean Corpuscular Hemoglobin Concent 34.0 % 34.0 % 33.9 % Red Cell Distribution Width 13.5 % 13.4 % 13.6 % Platelet Count 215 TH/MM3 139 TH/MM3 139 TH/MM3 Mean Platelet Volume 9.5 FL 9.2 FL 9.7 FL Neutrophils (%) (Auto) 80.5 % 64.5 % 62.6 % Lymphocytes (%) (Auto) 12.0 % 24.3 % 25.4 % Monocytes (%) (Auto) 7.1 % 8.4 % 8.5 % Eosinophils (%) (Auto) 0.1 % 2.0 % 2.5 % Basophils (%) (Auto) 0.3 % 0.8 % 1.0 % Neutrophils # (Auto) 6.4 TH/MM3 2.6 TH/MM3 2.6 TH/MM3 Lymphocytes # (Auto) 1.0 TH/MM3 1.0 TH/MM3 1.1 TH/MM3 Monocytes # (Auto) 0.6 TH/MM3 0.3 TH/MM3 0.4 TH/MM3 Eosinophils # (Auto) 0.0 TH/MM3 0.1 TH/MM3 0.1 TH/MM3 Basophils # (Auto) 0.0 TH/MM3 0.0 TH/MM3 0.0 TH/MM3 CBC Comment DIFF FINAL DIFF FINAL DIFF FINAL Differential Comment Prothrombin Time 10.1 SEC Prothromb Time International Ratio 1.0 RATIO Activated Partial Thromboplast Time 23.3 SEC Blood Urea Nitrogen 14 MG/DL 12 MG/DL Creatinine 0.82 MG/DL 0.78 MG/DL Random Glucose 125 MG/DL 143 MG/DL Total Protein 7.9 GM/DL 6.1 GM/DL Albumin 4.0 GM/DL 3.0 GM/DL Calcium Level 8.7 MG/DL 7.8 MG/DL Alkaline Phosphatase 94 U/L 74 U/L Aspartate Amino Transf (AST/SGOT) 21 U/L 16 U/L Alanine Aminotransferase (ALT/SGPT) 22 U/L 20 U/L Total Bilirubin 0.6 MG/DL 0.6 MG/DL Sodium Level 138 MEQ/L 140 MEQ/L Potassium Level 4.1 MEQ/L 4.0 MEQ/L Chloride Level 105 MEQ/L 106 MEQ/L Carbon Dioxide Level 24.2 MEQ/L 25.7 MEQ/L Anion Gap 9 MEQ/L 8 MEQ/L Estimat Glomerular Filtration Rate 100 ML/MIN 106 ML/MIN Lipase 5842 U/L 1002 U/L Urine Color YELLOW Urine Turbidity HAZY Urine pH 6.0 Urine Specific [place] 1.025 Urine Protein 30 mg/dL Urine Glucose (UA) NEG mg/dL Urine Ketones TRACE mg/dL Urine Occult Blood SMALL Urine Nitrite NEG Urine Bilirubin NEG Urine Urobilinogen LESS THAN 2 mg/dL Urine Leukocyte Esterase NEG Urine RBC 2 /hpf Urine WBC 1 /hpf Urine Mucus MANY /lpf Microscopic Urinalysis Comment CULT NOT INDICATED Imaging Last Impressions Abdomen/Pelvis CT 05/23/18 0000 Signed Impressions: CONCLUSION: 1. Findings most characteristic of acute pancreatitis superimposed on chronic pancreatitis with pancreatic ductal dilatation. Stranding is predominantly arou nd the pancreatic head. There is a 3 cm loculated fluid collection between the pancreas and the stomach, probably a gastric diverticulum. No significant free fluid. No free air. Fatty liver. Objective Remarks GENERAL: Awake alert and oriented 3 talkative and cooperative only speaks Persian --explained the patient in my Persian as best I could SKIN: Warm and dry. HEAD: Atraumatic. Normocephalic. EYES: Pupils equal and round. No scleral icterus. No injection or drainage. Extraocular muscles intact ENT: No nasal bleeding or discharge. Mucous membranes pink and moist. Tongue is midline NECK: Trachea midline. No JVD. Supple CARDIOVASCULAR: Regular rate and rhythm. S1-S2 no S3 or S4 RESPIRATORY: No accessory muscle use. Clear to auscultation. Breath sounds equal bilaterally. GASTROINTESTINAL: Abdomen soft, non-tender, nondistended. Hepatic and splenic margins not palpable. No abdominal tenderness at this time MUSCULOSKELETAL: Extremities without clubbing, cyanosis, or edema. No obvious deformities. NEUROLOGICAL: Awake and alert. No obvious cranial nerve deficits. Motor grossly within normal limits. Five out of 5 muscle strength in the arms and legs. Normal speech. PSYCHIATRIC: INAppropriate mood and affect; insight and judgment ABnormal. Procedures NONE Medications and IVs Current Medications Pantoprazole Sodium (Protonix Inj) 40 mg ONCE ONCE IVP Last administered on 16:09; Start 05/23/18 at 16:00; Stop 05/23/18 at 16:01; Status DC Sodium Chloride 1,000 ml @ 1,000 mls/hr Q1H IV Last administered on 05/23/18 16:08; Start 05/23/18 at 15:55; Stop 05/23/18 at 16:54; Status DC Sodium Chloride (NS Flush) 2 ml UNSCH PRN IV FLUSH FLUSH AFTER USING IV ACCESS Last administered on 05/23/18 16:09; Start 05/23/18 at 16:00; Stop 05/23/18 at 19:35; Status DC Al Hydrox/Mg Hydrox/Simethicone (Mag-Al Plus Susp Liq) 30 ml ONCE ONCE PO Last administered on 05/23/18 16:09; Start 05/23/18 at 16:00; Stop 05/23/18 at 16:01; Status DC Lidocaine HCl (Xylocaine 2% Viscous) 15 ml ONCE ONCE PO Last administered on 16:09; Start 05/23/18 at 16:00; Stop 05/23/18 at 16:01; Status DC Morphine Sulfate (Morphine Inj) 4 mg ONCE ONCE IV PUSH Last administered on 18:12; Start 05/23/18 at 18:15; Stop 05/23/18 at 18:16; Status DC Ondansetron HCl (Zofran Odt) 4 mg ONCE ONCE PO Last administered on at 18:12; Start 05/23/18 at 18:15; Stop 05/23/18 at 18:16; Status DC Iohexol (Omnipaque 350 Inj) 84 ml STK-MED ONCE IVCONTRAST ; Start 05/23/18 at 18 :33; Stop 05/23/18 at 18:34; Status DC Dextrose (D50w (Vial) Inj) 50 ml UNSCH PRN IV PUSH HYPOGLYCEMIA-SEE COMMENTS; Start 05/23/18 at 18:45 Glucagon (Glucagon Inj) 1 mg UNSCH PRN OTHER HYPOGLYCEMIA-SEE COMMENTS; Start 05/23/18 at 18:45 Insulin Aspart (NovoLOG SUPPLEMENTAL SCALE) 1 ACHS SLIDING SCALE SQ Last administered on 05/25/18at 07:33; Start 05/23/18 at 21:00 Sodium Chloride 1,000 ml @ 100 mls/hr Q10H IV Last administered on 05/25/18at 08:49; Start 05/23/18 at 18:33 Sodium Chloride (NS Flush) 2 ml UNSCH PRN IV FLUSH FLUSH AFTER USING IV ACCESS ; Start 05/23/18 at 18:45 Sodium Chloride (NS Flush) 2 ml BID IV FLUSH ; Start 05/23/18 at 21:00 Acetaminophen (Tylenol) 650 mg Q4H PRN PO TEMP > 100.4; Start 05/23/18 at 18:45 Acetaminophen (Tylenol) 650 mg Q6H PRN PO PAIN SCALE 1 TO 2; Start 05/23/18 at 18:45 Acetaminophen/ Hydrocodone Bitart ([place] 5-325 Mg) 1 tab Q4H PRN PO PAIN SCALE 3 TO 5 Last administered on 05/24/18at 20:18; Start 05/23/18 at 18:45 Acetaminophen/ Hydrocodone Bitart ([place] 7.5-325 Mg) 1 tab Q4H PRN PO PAIN SCALE 6 TO 10 Last administered on 05/24/18at 07:59; Start 05/23/18 at 18:45 Morphine Sulfate (Morphine Inj) 2 mg Q3H PRN IV PUSH BREAKTHROUGH PAIN; Start 05/23/18 at 18:45 Naloxone HCl (Narcan Inj) 0.4 mg UNSCH PRN IV PUSH SEE LABEL COMMENTS; Start at 18:45 Senna/Docusate Sodium (Kari-Colace) 1 tab BID PO Last administered on at 08:49; Start 05/23/18 at 21:00 Magnesium Hydroxide (Milk Of Magnesia Liq) 30 ml Q12H PRN PO Mild constipation ; Start 05/23/18 at 18:45 Sennosides (Senokot) 17.2 mg Q12H PRN PO Moderate constipation Last administered on 05/24/18at 07:42; Start 05/23/18 at 18:45 Bisacodyl (Dulcolax Supp) 10 mg DAILY PRN RECTAL SEVERE CONSITIPATION; Start at 18:45 Lactulose (Lactulose Liq) 30 ml DAILY PRN PO SEVERE CONSITIPATION; Start at 18:45 Insulin Human Regular (NovoLIN R INJ) 20 units BID SQ Last administered on 05/25at 08:49; Start 05/23/18 at 21:00 Folic Acid (Folate) 1 mg DAILY PO Last administered on 05/25/18 08:49; Start 05/24/18 at 09:00; Stop 05/29/18 at 08:59 Thiamine HCl (Vitamin B1) 100 mg DAILY PO Last administered on 05/25/18at 08:49 ; Start 05/24/18 at 09:00 Multivitamins/ Minerals Therapeutic (Theragran M Tab) 1 tab DAILY PO Last administered on 05/25/18 08:49; Start 05/24/18 at 09:00; Stop 05/29/18 at 08:59 Flumazenil (Romazicon Inj) 0.2 mg Q1M PRN IV PUSH SEE LABEL COMMENTS; Start at 19:15 Lorazepam (Ativan) 1 mg Q4H PRN PO CIWA 8 - 10; Start 05/23/18 at 19:15 Lorazepam (Ativan Inj) 1 mg Q4H PRN IV PUSH CIWA 8 - 10; Start 05/23/18 at 19: 15 Lorazepam (Ativan) 2 mg Q2H PRN PO CIWA 11-14; Start 05/23/18 at 19:15 Lorazepam (Ativan Inj) 2 mg Q2H PRN IV PUSH CIWA 11-14; Start 05/23/18 at 19:15 Lorazepam (Ativan Inj) 2 mg Q1H PRN IV PUSH CIWA 15-20; Start 05/23/18 at 19:15 Lorazepam (Ativan Inj) 2 mg Q15M PRN IV PUSH CIWA > 20; Start 05/23/18 at 19:15 Haloperidol Lactate (Haldol Inj) 2 mg Q15M PRN IM SEE LABEL COMMENTS; Start at 19:15 Pantoprazole Sodium (Protonix) 40 mg Q12HR PO Last administered on 05/25/18at 08 :49; Start 05/24/18 at 09:00 A/P Problem List: (1) Pancreatitis ICD Code: K85.90 - Acute pancreatitis without necrosis or infection, unspecified Status: Acute (2) Alcohol use ICD Code: Z78.9 - Other specified health status (3) DM (diabetes mellitus) ICD Code: E11.9 - Type 2 diabetes mellitus without complications Assessment and Plan 1. Pancreatitis: Lipase 5842, CT Abd/Pelvis w/ acute on chronic pancreatitis, images reviewed by me. Secondary to alcohol abuse. Protonix, analgesics/ antiemetics as needed, repeat Lipase. Advance diet as tolerated. 2. Alcohol Use: H/o Alcohol Abuse, quit 2-3 months ago, now drinks once a week 10-12 beers. Pt counselled. CIWA, Seizure Precautions, MVT/Thiamine/ Folate. 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 DM: Sliding scale w/ Accu-Cheks, resume home Insulin 4. DVT Prophylaxis: SCD/Teds 5. Social work for DC planning as needed. Advance diet full liquids at lunch-regular diet at dinner A.m. labs Pain control PLAN IS DC TO HOME TODAY Discharge Planning DC HOME TODAY Problem Qualifiers (1) Pancreatitis: Qualified Codes: K85.90 - Acute pancreatitis without necrosis or infection, unspecified Guero Britt DO May 25, 2018 10:25
[2018-05-25] MEDS ORDERED: NOVORP2 SQ (10:32)
[2018-05-25] MEDS ORDERED: PANT40TA3 PO (10:32)
[2018-05-25] MEDS ORDERED: HYDR-3516 PO (10:32)
[2018-05-25] MEDS ORDERED: THIA100 PO (10:32)
[2018-05-25] MEDS ORDERED: FOLI1TAB6 PO (10:32)
[2018-05-25] MEDS ORDERED: THERM PO (10:32)
--- NOTE | 2018-05-25 10:34 | HHI.DS ---
Discharge Summary Admission Date May 23, 2018 at 19:05 Discharge Date: May 25, 2018 Admitting Diagnosis Acute pancreatitis (1) Pancreatitis ICD Code: K85.90 - Acute pancreatitis without necrosis or infection, unspecified Diagnosis: Principal Status: Acute (2) Alcohol use ICD Code: Z78.9 - Other specified health status Diagnosis: Principal (3) DM (diabetes mellitus) ICD Code: E11.9 - Type 2 diabetes mellitus without complications Diagnosis: Principal Procedures NONE Brief History - From Admission This is a 47-year-old Ecuadorean Speaking male with PMH of DM, Hiatal Hernia and h/ o Alcohol Abuse who presented to ER with complaints of severe epigastric pain x1 day. History obtained by me from patient directly in Ecuadorean. States he has a h/o of alcohol abuse, quit 2 months ago, however had 10-12 beers yesterday. Today had severe epigastric pain which he believed was from his hiatal hernia. Pain is severe, intermittent, 9/10, associated w/ nausea, some vomiting. Denies fever or chills. On arrival, BP 147/91, HR 78, O2 sat 98% on RA, Afebrile. CBC unremarkable. Chemistry essentially unremarkable except for BS 125. Lipase 5842. INR 1.0. UA negative for UTI. CT Abdomen/Pelvis acute pancreatitis superimposed on chronic pancreatitis with pancreatic ductal dilatation, gastric diverticulum. S/p Morphine and Zofran in ER w/ some improvement. CBC/BMP: 05/25/18 0745 05/24/18 0545 Significant Findings Laboratory Tests Test 05/23/18 16:15 05/23/18 17:00 05/24/18 05:45 05/25/18 07:45 Neutrophils (%) (Auto) 80.5 % (16.0-70.0) Activated Partial Thromboplast Time 23.3 SEC (24.3-30.1) Random Glucose 125 MG/DL (74-106) 143 MG/DL (74-106) Lipase 5842 U/L (73-393) 1002 U/L (73-393) Urine Turbidity HAZY (CLEAR) Urine Protein 30 mg/dL (NEG-TRACE) Urine Ketones TRACE mg/dL (NEG) Urine Occult Blood SMALL (NEG) Urine Mucus MANY /lpf (OCC) Red Blood Count 4.39 MIL/MM3 (4.50-5.90) 4.41 MIL/MM3 (4.50-5.90) Hematocrit 38.6 % (39.0-51.0) Platelet Count 139 TH/MM3 (150-450) 139 TH/MM3 (150-450) Monocytes (%) (Auto) 8.4 % (0.0-8.0) 8.5 % (0.0-8.0) Total Protein 6.1 GM/DL (6.4-8.2) Albumin 3.0 GM/DL (3.4-5.0) Calcium Level 7.8 MG/DL (8.5-10.1) Imaging Last Impressions Abdomen/Pelvis CT 05/23/18 0000 Signed Impressions: CONCLUSION: 1. Findings most characteristic of acute pancreatitis superimposed on chronic pancreatitis with pancreatic ductal dilatation. Stranding is predominantly arou nd the pancreatic head. There is a 3 cm loculated fluid collection between the pancreas and the stomach, probably a gastric diverticulum. No significant free fluid. No free air. Fatty liver. PE at Discharge GENERAL: Awake alert and oriented 3 talkative and cooperative only speaks Ecuadorean --explained the patient in my Ecuadorean as best I could SKIN: Warm and dry. HEAD: Atraumatic. Normocephalic. EYES: Pupils equal and round. No scleral icterus. No injection or drainage. Extraocular muscles intact ENT: No nasal bleeding or discharge. Mucous membranes pink and moist. Tongue is midline NECK: Trachea midline. No JVD. Supple CARDIOVASCULAR: Regular rate and rhythm. S1-S2 no S3 or S4 RESPIRATORY: No accessory muscle use. Clear to auscultation. Breath sounds equal bilaterally. GASTROINTESTINAL: Abdomen soft, non-tender, nondistended. Hepatic and splenic margins not palpable. No abdominal tenderness at this time MUSCULOSKELETAL: Extremities without clubbing, cyanosis, or edema. No obvious deformities. NEUROLOGICAL: Awake and alert. No obvious cranial nerve deficits. Motor grossly within normal limits. Five out of 5 muscle strength in the arms and legs. Normal speech. PSYCHIATRIC: INAppropriate mood and affect; insight and judgment ABnormal. Hospital Course This is a 47-year-old Ecuadorean Speaking male with PMH of DM, Hiatal Hernia and h/ o Alcohol Abuse who presented to ER with complaints of severe epigastric pain x1 day. History obtained by me from patient directly in Ecuadorean. States he has a h/o of alcohol abuse, quit 2 months ago, however had 10-12 beers yesterday. Today had severe epigastric pain which he believed was from his hiatal hernia. Pain is severe, intermittent, 9/10, associated w/ nausea, some vomiting. Denies fever or chills. On arrival, BP 147/91, HR 78, O2 sat 98% on RA, Afebrile. CBC unremarkable. Chemistry essentially unremarkable except for BS 125. Lipase 5842. INR 1.0. UA negative for UTI. CT Abdomen/Pelvis acute pancreatitis superimposed on chronic pancreatitis with pancreatic ductal dilatation, gastric diverticulum. S/p Morphine and Zofran in ER w/ some improvement. 6-24 WANTS TO EAT DENIES ANY ABDOMINAL PAIN WILL TRY FULL LIQUIDS ONLY SPEAKS [place] DW RN AND PT AND CM NEEDS TO NEVER DRINK ALCOHOL EVER AGAIN Advance diet as tolerated today If a.m. labs are stable discharge in next 24-48 hours 6-25 TOLERATING A DIET WANTS TO GO HOME DC TO HOME TODAY CM FOR PCP FOLLOW UP NO ALCOHOL EVER AGAIN Pt Condition on Discharge: Good Discharge Disposition: Discharge Home Discharge Time: <= 30 minutes Discharge Instructions DIET: Follow Instructions for: Heart Healthy Diet Speech Therapy-Diet Recommends: Regular Additional Diet Instructions: NO ALCOHOL OR TOBACCO EVER AGAIN Activities you can perform: Regular-No Restrictions Follow up Referrals: PCP Follow-up - 3-5 Days New Medications: Folic Acid (Folic Acid) 1 Mg Tablet 1 MG PO DAILY for Nutritional Supplement, #30 TAB Hydrocodone/Acetaminophen (Hydrocodone-Acetamin 5-325 mg) 5 Mg-325 Mg Tablet 1 TAB PO Q4H PRN for PAIN, #20 TAB Multiple Vitamins W/ Minerals (Thera M Plus) 1 Tab 1 TAB PO DAILY for Nutritional Supplement, #30 TAB Pantoprazole (Pantoprazole) 40 Mg Tab 40 MG PO Q12HR for Manage Heartburn, #30 TAB Thiamine HCl (Gnp Vitamin B-1) 100 Mg Tab 100 MG PO DAILY for Nutritional Supplement, #30 TAB Continued Medications: Insulin Human Regular Inj (Novolin R Inj) 1,000 Unit/10 Ml Vial 20 UNITS SQ BID for Blood Sugar Management, #10 ML 0 Refills (This prescription has been renewed) Guero Britt DO May 25, 2018 10:34
[2018-05-25 10:51] LABS: ALBUMIN 2.9 GM/DL (3.4-5.0); AST (GOT) 13 U/L (15-37); BLOOD UREA NITROGEN 9 MG/DL (7-18); CHLORIDE 105 MEQ/L (98-107); GLOMERULAR FILTRATION RATE 120 ML/MIN (>89); MAGNESIUM 2.2 MG/DL (1.5-2.5); SODIUM (NA) 139 MEQ/L (136-145)
[2018-05-25 10:53] LABS: GLUCOSE,RANDOM 160 MG/DL (74-106)
[2018-05-25 11:06] LABS: ALKALINE PHOSPHATASE 71 U/L (45-117); ALT (GPT) 18 U/L (12-78); FREE T4 1.19 NG/DL (0.76-1.46); PHOSPHORUS 2.6 MG/DL (2.5-4.9); TOTAL BILIRUBIN ADULT 0.5 MG/DL (0.2-1.0); TOTAL PROTEIN 6.1 GM/DL (6.4-8.2)
[2018-05-25 16:40] LABS: HEMOGLOBIN A1C 7.8 % (4.3-6.0)
== END 2018-05-25 12:39 | disposition home or self-care (01) | DRG 440 ==
LOC: NEPC 14:17 → NEDA 19:05 → N06A 21:34
PROVIDERS: ADMIT Hospitalist; ATTEND Hospitalist
DX: K85.20 Alcohol induced acute pancreatitis without necrosis or infection (principal); E11.9 Type 2 diabetes mellitus without complications; K86.1 Other chronic pancreatitis; K44.9 Diaphragmatic hernia without obstruction or gangrene; F10.10 Alcohol abuse, uncomplicated; K31.4 Gastric diverticulum; Z79.4 Long term (current) use of insulin
CPT/HCPCS: 74177; 80053; 81001; 82150; 82948; 83036; 83690; 83735; 84100; 84439; 84443; 85025; 85610; 85730; 96361; 96374; 96375; C9113; J1815; J2270; J7030; Q9967

== ENCOUNTER 2018-06-11 13:56 | Inpatient (IN) ==
[2018-06-11] MEDS ORDERED: Sod Chloride 0.9% Inj 1,000 ML IV.SIG ONE (14:29)
[2018-06-11] MEDS ORDERED: Pantoprazole Inj 40 MG Vial IV.PUSH STA (14:29)
--- NOTE | 2018-06-11 14:51 | ED ---
HPI General Chief complaint: Abdominal Pain Stated complaint: Vomiting Black @ Night/Not Eating x 2 Days Time Seen by Provider: 06/11/18 14:07 History of Present Illness HPI narrative: 47-year-old male history of insulin-dependent diabetes presented to the ER for evaluation of nausea vomiting abdominal pain that started 2 days ago. Vomitus is nonbloody nonbilious, abdominal pain in the epigastric area that is rated 3 out of 10, comes and goes, no radiation, nothing makes it better but moving makes it worse. Patient has no diarrhea, no fever or chills or night sweats. He takes NovoLog 20 units in the morning and 10 units at night. He does not remember eating anything out of the ordinary, no recent travel or sick contacts. He was recently discharged from the hospital for her to having acute pancreatitis a month ago. Related Data Home Medications Medication Instructions Recorded Confirmed insulin regular human [Novolin R 06/11/18 Regular U-100 Insuln] omeprazole 40 mg PO DAILY 06/11/18 06/11/18 Previous Rx's Medication Instructions Recorded alum-mag hydroxide-simeth [Mag-Al 30 ml PO Q6HR 2 Days #180 ml 06/15/18 Plus] hydrocodone-acetaminophen 1 tab PO Q4H PRN #10 tab 06/15/18 ondansetron 4 mg PO Q6H PRN 10 Days tab 06/15/18 sucralfate 1 gm PO Q6HR 2 Days ml 06/15/18 Allergies Allergy/AdvReac Type Severity Reaction Status Date / Time No Known Allergies Allergy Unverified 06/11/18 14:40 Review of Systems Except as stated in HPI: all other systems reviewed are negative [facility] Medical History Medical History Anxiety (Acute) Diabetes mellitus (Acute) Hepatitis (Acute) Hernia (Acute) Pancreatitis (Acute) Reflux gastritis (Acute) Surgical History Surgical History History of surgical procedure on eye proper using laser (Acute) Hx of tonsillectomy (Acute) Family History Family History Other No significant family history Social History Social History Substance History: No History of Abuse Second Hand Smoke Exposure: No Smoking Status: Former smoker Tobacco Type: Cigarettes How Often Do You Have a Drink Containing Alcohol: 4 or more times a week Recent Travel in [facility] within the Last 8 Weeks: No Recent Out of Country Travel within the Last 8 Weeks: No Immunization History Tetanus Immunization: >5 Years Hx Influenza Vaccine This Season: Yes Exam Narrative Exam Narrative: GENERAL: Alert oriented 3 in no acute distress. SKIN: Focused skin assessment warm/dry. HEAD: Atraumatic. Normocephalic. EYES: Pupils equal and round. No scleral icterus. No injection or drainage. ENT: No nasal bleeding or discharge. Mucous membranes pink and moist. NECK: Trachea midline. No JVD. CARDIOVASCULAR: Regular rate and rhythm. No murmur appreciated. RESPIRATORY: No accessory muscle use. Clear to auscultation. Breath sounds equal bilaterally. GASTROINTESTINAL: Abdomen soft, non-tender, nondistended. Hepatic and splenic margins not palpable. MUSCULOSKELETAL: No obvious deformities. No clubbing. No cyanosis. No edema. NEUROLOGICAL: Awake and alert. No obvious cranial nerve deficits. Motor grossly within normal limits. Normal speech. PSYCHIATRIC: Appropriate mood and affect; insight and judgment normal. Course Initial Documented Vital Signs Temperature 98.9 F 06/11/18 14:34 Pulse Rate 83 06/11/18 14:34 Respiratory Rate 18 06/11/18 14:34 Blood Pressure 115/69 06/11/18 14:34 Pulse Oximetry 97 06/11/18 14:34 Last Documented Vital Signs Temperature 97.6 F 06/15/18 08:00 Pulse Rate 74 06/15/18 08:00 Respiratory Rate 18 06/15/18 08:00 Blood Pressure 143/79 H 06/15/18 08:00 Pulse Oximetry 98 06/15/18 08:00 Medical Decision Making MDM Narrative Medical decision making narrative: 47-year-old male here for evaluation of abdominal pain. Pending labs and CAT scan will sign out to Dr. Boyle. Lab Data Result diagrams: 06/11/18 15:09 06/11/18 15:09 Lab Results 06/11/18 06/11/18 06/11/18 Range/Units 14:51 15:00 15:09 CBC w Diff Auto diff final WBC 10.7 (4.0-11.0) th/mm3 RBC 4.75 (4.50-5.90) mil/mm3 Hgb 13.9 (13.0-17.0) gm/dL Hct 40.8 (39.0-51.0) % MCV 85.9 (80.0-100.0) fL MCH 29.3 (27.0-34.0) pg MCHC 34.1 (32.0-36.0) % RDW 12.9 (11.6-17.2) % Plt Count 222 (150-450) th/mm3 MPV 9.9 (7.0-11.0) fL Neut % (Auto) 87.7 H (16.0-70.0) % Lymph % (Auto) 7.3 L (9.0-44.0) % [place] % (Auto) 4.7 (0.0-8.0) % Eos % (Auto) 0.0 (0.0-4.0) % Baso % (Auto) 0.3 (0.0-2.0) % Neut # (Auto) 9.4 H (1.8-7.7) th/mm3 Lymph # (Auto) 0.8 L (1.0-4.8) th/mm3 [place] # (Auto) 0.5 (0.0-0.9) th/mm3 Eos # (Auto) 0.0 (0.0-0.4) th/mm3 Baso # (Auto) 0.0 (0.0-0.2) th/mm3 WBC Differential . Differential Comment . Sodium (136-145) meq/L Potassium (3.5-5.1) meq/L Chloride (98-107) meq/L Carbon Dioxide (21.0-32.0) meq/L Anion Gap (5-15) meq/L BUN (7-18) mg/dL Creatinine (0.60-1.30) mg/dL Estimated GFR (>89) mL/min POC Glucose 343 H (68-110) mg/dl Random Glucose (74-106) mg/dL Calcium (8.5-10.1) mg/dL Total Bilirubin (0.2-1.0) mg/dL AST (15-37) U/L ALT (12-78) U/L Alkaline Phosphatase (45-117) U/L Total Creatine Kinase (39-308) U/L CK-MB (CK-2) (0.5-3.6) ng/mL CK-MB (CK-2) % (0.0-4.0) % Troponin I (0.02-0.05) ng/mL Total Protein (6.4-8.2) g/dL Albumin (3.4-5.0) g/dL Lipase (73-393) U/L Urine Color Yellow (Yellw/Straw) Urine Clarity Clear (Clear) Urine pH 6.0 (5.0-8.5) Ur Specific [place] Greater/equal 1.030 (1.002-1.035) Urine Protein 30 H (Neg-Trace) mg/dL Urine Glucose (UA) 500 H (Negative) mg/dL Urine Ketones Trace (Negative) mg/dL Urine Occult Blood Moderate H (Negative) Urine Nitrate Negative (Negative) Urine Bilirubin Negative (Negative) Urine Urobilinogen 0.2 (Less than 2) mg/dL Ur Leukocyte Esterase Negative (Negative) Urine RBC 0-3 (0-3) /hpf Urine WBC 0-5 (0-5) /hpf Ur Squamous Epith Cells 6-10 H (0-5) /hpf Hyaline Casts 0-3 (0-3) /lpf Micro UA Comment Culture not ind Urine Culture Comments Culture not ind 06/11/18 06/11/18 06/12/18 Range/Units 15:09 21:02 07:29 CBC w Diff WBC (4.0-11.0) th/mm3 RBC (4.50-5.90) mil/mm3 Hgb (13.0-17.0) gm/dL Hct (39.0-51.0) % MCV (80.0-100.0) fL MCH (27.0-34.0) pg MCHC (32.0-36.0) % RDW (11.6-17.2) % Plt Count (150-450) th/mm3 MPV (7.0-11.0) fL Neut % (Auto) (16.0-70.0) % Lymph % (Auto) (9.0-44.0) % [place] % (Auto) (0.0-8.0) % Eos % (Auto) (0.0-4.0) % Baso % (Auto) (0.0-2.0) % Neut # (Auto) (1.8-7.7) th/mm3 Lymph # (Auto) (1.0-4.8) th/mm3 [place] # (Auto) (0.0-0.9) th/mm3 Eos # (Auto) (0.0-0.4) th/mm3 Baso # (Auto) (0.0-0.2) th/mm3 WBC Differential Differential Comment Sodium 135 L (136-145) meq/L Potassium 3.7 (3.5-5.1) meq/L Chloride 97 L (98-107) meq/L Carbon Dioxide 28.3 (21.0-32.0) meq/L Anion Gap 10 (5-15) meq/L BUN 34 H (7-18) mg/dL Creatinine 1.30 (0.60-1.30) mg/dL Estimated GFR 59 L (>89) mL/min POC Glucose 147 H 202 H (68-110) mg/dl Random Glucose 331 H (74-106) mg/dL Calcium 8.2 L (8.5-10.1) mg/dL Total Bilirubin 0.7 (0.2-1.0) mg/dL AST 20 (15-37) U/L ALT 24 (12-78) U/L Alkaline Phosphatase 81 (45-117) U/L Total Creatine Kinase 433 H (39-308) U/L CK-MB (CK-2) 3.1 (0.5-3.6) ng/mL CK-MB (CK-2) % 0.7 (0.0-4.0) % Troponin I Less than 0.02 L (0.02-0.05) ng/mL Total Protein 7.6 (6.4-8.2) g/dL Albumin 3.7 (3.4-5.0) g/dL Lipase 1991 H (73-393) U/L Urine Color (Yellw/Straw) Urine Clarity (Clear) Urine pH (5.0-8.5) Ur Specific [place] (1.002-1.035) Urine Protein (Neg-Trace) mg/dL Urine Glucose (UA) (Negative) mg/dL Urine Ketones (Negative) mg/dL Urine Occult Blood (Negative) Urine Nitrate (Negative) Urine Bilirubin (Negative) Urine Urobilinogen (Less than 2) mg/dL Ur Leukocyte Esterase (Negative) Urine RBC (0-3) /hpf Urine WBC (0-5) /hpf Ur Squamous Epith Cells (0-5) /hpf Hyaline Casts (0-3) /lpf Micro UA Comment Urine Culture Comments 06/12/18 06/12/18 06/12/18 Range/Units 11:53 15:51 21:35 CBC w Diff WBC (4.0-11.0) th/mm3 RBC (4.50-5.90) mil/mm3 Hgb (13.0-17.0) gm/dL Hct (39.0-51.0) % MCV (80.0-100.0) fL MCH (27.0-34.0) pg MCHC (32.0-36.0) % RDW (11.6-17.2) % Plt Count (150-450) th/mm3 MPV (7.0-11.0) fL Neut % (Auto) (16.0-70.0) % Lymph % (Auto) (9.0-44.0) % [place] % (Auto) (0.0-8.0) % Eos % (Auto) (0.0-4.0) % Baso % (Auto) (0.0-2.0) % Neut # (Auto) (1.8-7.7) th/mm3 Lymph # (Auto) (1.0-4.8) th/mm3 [place] # (Auto) (0.0-0.9) th/mm3 Eos # (Auto) (0.0-0.4) th/mm3 Baso # (Auto) (0.0-0.2) th/mm3 WBC Differential Differential Comment Sodium (136-145) meq/L Potassium (3.5-5.1) meq/L Chloride (98-107) meq/L Carbon Dioxide (21.0-32.0) meq/L Anion Gap (5-15) meq/L BUN (7-18) mg/dL Creatinine (0.60-1.30) mg/dL Estimated GFR (>89) mL/min POC Glucose 215 H 166 H 178 H (68-110) mg/dl Random Glucose (74-106) mg/dL Calcium (8.5-10.1) mg/dL Total Bilirubin (0.2-1.0) mg/dL AST (15-37) U/L ALT (12-78) U/L Alkaline Phosphatase (45-117) U/L Total Creatine Kinase (39-308) U/L CK-MB (CK-2) (0.5-3.6) ng/mL CK-MB (CK-2) % (0.0-4.0) % Troponin I (0.02-0.05) ng/mL Total Protein (6.4-8.2) g/dL Albumin (3.4-5.0) g/dL Lipase (73-393) U/L Urine Color (Yellw/Straw) Urine Clarity (Clear) Urine pH (5.0-8.5) Ur Specific [place] (1.002-1.035) Urine Protein (Neg-Trace) mg/dL Urine Glucose (UA) (Negative) mg/dL Urine Ketones (Negative) mg/dL Urine Occult Blood (Negative) Urine Nitrate (Negative) Urine Bilirubin (Negative) Urine Urobilinogen (Less than 2) mg/dL Ur Leukocyte Esterase (Negative) Urine RBC (0-3) /hpf Urine WBC (0-5) /hpf Ur Squamous Epith Cells (0-5) /hpf Hyaline Casts (0-3) /lpf Micro UA Comment Urine Culture Comments 06/13/18 06/13/18 06/13/18 Range/Units 07:31 11:53 12:27 CBC w Diff WBC (4.0-11.0) th/mm3 RBC (4.50-5.90) mil/mm3 Hgb (13.0-17.0) gm/dL Hct (39.0-51.0) % MCV (80.0-100.0) fL MCH (27.0-34.0) pg MCHC (32.0-36.0) % RDW (11.6-17.2) % Plt Count (150-450) th/mm3 MPV (7.0-11.0) fL Neut % (Auto) (16.0-70.0) % Lymph % (Auto) (9.0-44.0) % [place] % (Auto) (0.0-8.0) % Eos % (Auto) (0.0-4.0) % Baso % (Auto) (0.0-2.0) % Neut # (Auto) (1.8-7.7) th/mm3 Lymph # (Auto) (1.0-4.8) th/mm3 [place] # (Auto) (0.0-0.9) th/mm3 Eos # (Auto) (0.0-0.4) th/mm3 Baso # (Auto) (0.0-0.2) th/mm3 WBC Differential Differential Comment Sodium (136-145) meq/L Potassium (3.5-5.1) meq/L Chloride (98-107) meq/L Carbon Dioxide (21.0-32.0) meq/L Anion Gap (5-15) meq/L BUN (7-18) mg/dL Creatinine (0.60-1.30) mg/dL Estimated GFR (>89) mL/min POC Glucose 211 H 175 H (68-110) mg/dl Random Glucose (74-106) mg/dL Calcium (8.5-10.1) mg/dL Total Bilirubin (0.2-1.0) mg/dL AST (15-37) U/L ALT (12-78) U/L Alkaline Phosphatase (45-117) U/L Total Creatine Kinase (39-308) U/L CK-MB (CK-2) (0.5-3.6) ng/mL CK-MB (CK-2) % (0.0-4.0) % Troponin I (0.02-0.05) ng/mL Total Protein (6.4-8.2) g/dL Albumin (3.4-5.0) g/dL Lipase 1490 H (73-393) U/L Urine Color (Yellw/Straw) Urine Clarity (Clear) Urine pH (5.0-8.5) Ur Specific [place] (1.002-1.035) Urine Protein (Neg-Trace) mg/dL Urine Glucose (UA) (Negative) mg/dL Urine Ketones (Negative) mg/dL Urine Occult Blood (Negative) Urine Nitrate (Negative) Urine Bilirubin (Negative) Urine Urobilinogen (Less than 2) mg/dL Ur Leukocyte Esterase (Negative) Urine RBC (0-3) /hpf Urine WBC (0-5) /hpf Ur Squamous Epith Cells (0-5) /hpf Hyaline Casts (0-3) /lpf Micro UA Comment Urine Culture Comments 06/13/18 06/13/18 06/14/18 Range/Units 18:31 22:21 07:16 CBC w Diff WBC (4.0-11.0) th/mm3 RBC (4.50-5.90) mil/mm3 Hgb (13.0-17.0) gm/dL Hct (39.0-51.0) % MCV (80.0-100.0) fL MCH (27.0-34.0) pg MCHC (32.0-36.0) % RDW (11.6-17.2) % Plt Count (150-450) th/mm3 MPV (7.0-11.0) fL Neut % (Auto) (16.0-70.0) % Lymph % (Auto) (9.0-44.0) % [place] % (Auto) (0.0-8.0) % Eos % (Auto) (0.0-4.0) % Baso % (Auto) (0.0-2.0) % Neut # (Auto) (1.8-7.7) th/mm3 Lymph # (Auto) (1.0-4.8) th/mm3 [place] # (Auto) (0.0-0.9) th/mm3 Eos # (Auto) (0.0-0.4) th/mm3 Baso # (Auto) (0.0-0.2) th/mm3 WBC Differential Differential Comment Sodium (136-145) meq/L Potassium (3.5-5.1) meq/L Chloride (98-107) meq/L Carbon Dioxide (21.0-32.0) meq/L Anion Gap (5-15) meq/L BUN (7-18) mg/dL Creatinine (0.60-1.30) mg/dL Estimated GFR (>89) mL/min POC Glucose 256 H 202 H 215 H (68-110) mg/dl Random Glucose (74-106) mg/dL Calcium (8.5-10.1) mg/dL Total Bilirubin (0.2-1.0) mg/dL AST (15-37) U/L ALT (12-78) U/L Alkaline Phosphatase (45-117) U/L Total Creatine Kinase (39-308) U/L CK-MB (CK-2) (0.5-3.6) ng/mL CK-MB (CK-2) % (0.0-4.0) % Troponin I (0.02-0.05) ng/mL Total Protein (6.4-8.2) g/dL Albumin (3.4-5.0) g/dL Lipase (73-393) U/L Urine Color (Yellw/Straw) Urine Clarity (Clear) Urine pH (5.0-8.5) Ur Specific [place] (1.002-1.035) Urine Protein (Neg-Trace) mg/dL Urine Glucose (UA) (Negative) mg/dL Urine Ketones (Negative) mg/dL Urine Occult Blood (Negative) Urine Nitrate (Negative) Urine Bilirubin (Negative) Urine Urobilinogen (Less than 2) mg/dL Ur Leukocyte Esterase (Negative) Urine RBC (0-3) /hpf Urine WBC (0-5) /hpf Ur Squamous Epith Cells (0-5) /hpf Hyaline Casts (0-3) /lpf Micro UA Comment Urine Culture Comments 06/14/18 06/14/18 06/14/18 Range/Units 11:36 16:37 21:07 CBC w Diff WBC (4.0-11.0) th/mm3 RBC (4.50-5.90) mil/mm3 Hgb (13.0-17.0) gm/dL Hct (39.0-51.0) % MCV (80.0-100.0) fL MCH (27.0-34.0) pg MCHC (32.0-36.0) % RDW (11.6-17.2) % Plt Count (150-450) th/mm3 MPV (7.0-11.0) fL Neut % (Auto) (16.0-70.0) % Lymph % (Auto) (9.0-44.0) % [place] % (Auto) (0.0-8.0) % Eos % (Auto) (0.0-4.0) % Baso % (Auto) (0.0-2.0) % Neut # (Auto) (1.8-7.7) th/mm3 Lymph # (Auto) (1.0-4.8) th/mm3 [place] # (Auto) (0.0-0.9) th/mm3 Eos # (Auto) (0.0-0.4) th/mm3 Baso # (Auto) (0.0-0.2) th/mm3 WBC Differential Differential Comment Sodium (136-145) meq/L Potassium (3.5-5.1) meq/L Chloride (98-107) meq/L Carbon Dioxide (21.0-32.0) meq/L Anion Gap (5-15) meq/L BUN (7-18) mg/dL Creatinine (0.60-1.30) mg/dL Estimated GFR (>89) mL/min POC Glucose 199 H 269 H 187 H (68-110) mg/dl Random Glucose (74-106) mg/dL Calcium (8.5-10.1) mg/dL Total Bilirubin (0.2-1.0) mg/dL AST (15-37) U/L ALT (12-78) U/L Alkaline Phosphatase (45-117) U/L Total Creatine Kinase (39-308) U/L CK-MB (CK-2) (0.5-3.6) ng/mL CK-MB (CK-2) % (0.0-4.0) % Troponin I (0.02-0.05) ng/mL Total Protein (6.4-8.2) g/dL Albumin (3.4-5.0) g/dL Lipase (73-393) U/L Urine Color (Yellw/Straw) Urine Clarity (Clear) Urine pH (5.0-8.5) Ur Specific [place] (1.002-1.035) Urine Protein (Neg-Trace) mg/dL Urine Glucose (UA) (Negative) mg/dL Urine Ketones (Negative) mg/dL Urine Occult Blood (Negative) Urine Nitrate (Negative) Urine Bilirubin (Negative) Urine Urobilinogen (Less than 2) mg/dL Ur Leukocyte Esterase (Negative) Urine RBC (0-3) /hpf Urine WBC (0-5) /hpf Ur Squamous Epith Cells (0-5) /hpf Hyaline Casts (0-3) /lpf Micro UA Comment Urine Culture Comments 06/15/18 Range/Units 07:48 CBC w Diff WBC (4.0-11.0) th/mm3 RBC (4.50-5.90) mil/mm3 Hgb (13.0-17.0) gm/dL Hct (39.0-51.0) % MCV (80.0-100.0) fL MCH (27.0-34.0) pg MCHC (32.0-36.0) % RDW (11.6-17.2) % Plt Count (150-450) th/mm3 MPV (7.0-11.0) fL Neut % (Auto) (16.0-70.0) % Lymph % (Auto) (9.0-44.0) % [place] % (Auto) (0.0-8.0) % Eos % (Auto) (0.0-4.0) % Baso % (Auto) (0.0-2.0) % Neut # (Auto) (1.8-7.7) th/mm3 Lymph # (Auto) (1.0-4.8) th/mm3 [place] # (Auto) (0.0-0.9) th/mm3 Eos # (Auto) (0.0-0.4) th/mm3 Baso # (Auto) (0.0-0.2) th/mm3 WBC Differential Differential Comment Sodium (136-145) meq/L Potassium (3.5-5.1) meq/L Chloride (98-107) meq/L Carbon Dioxide (21.0-32.0) meq/L Anion Gap (5-15) meq/L BUN (7-18) mg/dL Creatinine (0.60-1.30) mg/dL Estimated GFR (>89) mL/min POC Glucose 171 H (68-110) mg/dl Random Glucose (74-106) mg/dL Calcium (8.5-10.1) mg/dL Total Bilirubin (0.2-1.0) mg/dL AST (15-37) U/L ALT (12-78) U/L Alkaline Phosphatase (45-117) U/L Total Creatine Kinase (39-308) U/L CK-MB (CK-2) (0.5-3.6) ng/mL CK-MB (CK-2) % (0.0-4.0) % Troponin I (0.02-0.05) ng/mL Total Protein (6.4-8.2) g/dL Albumin (3.4-5.0) g/dL Lipase (73-393) U/L Urine Color (Yellw/Straw) Urine Clarity (Clear) Urine pH (5.0-8.5) Ur Specific [place] (1.002-1.035) Urine Protein (Neg-Trace) mg/dL Urine Glucose (UA) (Negative) mg/dL Urine Ketones (Negative) mg/dL Urine Occult Blood (Negative) Urine Nitrate (Negative) Urine Bilirubin (Negative) Urine Urobilinogen (Less than 2) mg/dL Ur Leukocyte Esterase (Negative) Urine RBC (0-3) /hpf Urine WBC (0-5) /hpf Ur Squamous Epith Cells (0-5) /hpf Hyaline Casts (0-3) /lpf Micro UA Comment Urine Culture Comments Imaging Data Radiologist's impression: Abdomen/Pelvis CT 06/11/18 14:29 CONCLUSION: 1. Thickened proximal duodenal wall. An Inflammatory versus neoplastic process should be excluded. 2. Chronic pancreatitis with pancreatic calcific deposits and dilated pancreatic duct. 3. Stable renal cyst. 4. No evidence of acute pancreatitis. Discharge Plan Discharge Disposition Patient Disposition: 30 Still Patient Discharge Condition Condition: Good Discharge Order Discharge Orders: Discharge Order (Routine); Ordered 06/15/18 Ordered By: Vicky aCstellon Discharge Details Anticipated Discharge Date: 06/15/18 Diagnosis: Pancreatitis, Hyperglycemia Physicians Team ED Provider: Maksim Boyle Primary Care Provider: Primary Care Emily Jeronimo Attending Provider: Sejal River Other Providers: Alexandre Ayala V Status ED Status: Discharged Discharge Information Discharge Date/Time: 06/11/18 20:09
[2018-06-11 15:37] LABS: Baso % (Auto) 0.3 % (0.0-2.0); Hematocrit 40.8 % (39.0-51.0); Hemoglobin 13.9 gm/dL (13.0-17.0); Lymph # (Auto) 0.8 th/mm3 (1.0-4.8); Lymph % (Auto) 7.3 % (9.0-44.0); Mean Corpuscular HGB Conc 34.1 % (32.0-36.0); Mean Corpuscular Hemoglobin 29.3 pg (27.0-34.0); Mean Corpuscular Volume 85.9 fL (80.0-100.0); Mean Platelet Volume 9.9 fL (7.0-11.0); Mono # (Auto) 0.5 th/mm3 (0.0-0.9); Mono % (Auto) 4.7 % (0.0-8.0); Neut # (Auto) 9.4 th/mm3 (1.8-7.7); Neut % (Auto) 87.7 % (16.0-70.0); Platelet Count 222 th/mm3 (150-450); Red Blood Count 4.75 mil/mm3 (4.50-5.90); Red Cell Distribution Width 12.9 % (11.6-17.2); White Blood Count 10.7 th/mm3 (4.0-11.0)
[2018-06-11 15:38] LABS: Bilirubin,Urine Negative (Negative); Clarity,Urine Clear (Clear); Color,Urine Yellow (Yellw/Straw); Glucose,Urine (UA) 500 mg/dL (Negative); Leukocyte Esterase,Urine Negative (Negative); Nitrite,Urine Negative (Negative); Specific Gravity,Urine Greater/Equal 1.030 (1.002-1.035); Urobilinogen,Urine 0.2 mg/dL (Less than 2)
[2018-06-11 15:44] LABS: Chloride 97 meq/L (98-107); Potassium 3.7 meq/L (3.5-5.1); Sodium 135 meq/L (136-145)
[2018-06-11 15:48] LABS: Albumin 3.7 g/dL (3.4-5.0); Anion Gap 10 meq/L (5-15); Blood Urea Nitrogen 34 mg/dL (7-18); Calcium 8.2 mg/dL (8.5-10.1); Carbon Dioxide 28.3 meq/L (21.0-32.0); Glucose,Random 331 mg/dL (74-106)
[2018-06-11 15:51] LABS: Alanine Aminotransferase 24 U/L (12-78); Aspartate Aminotransferase 20 U/L (15-37); Glomerular Filtration Rate 59 mL/min (>89)
[2018-06-11 15:52] LABS: Total Protein 7.6 g/dL (6.4-8.2)
[2018-06-11 15:53] LABS: Lipase 1991 U/L (73-393)
[2018-06-11 15:54] LABS: Alkaline Phosphatase 81 U/L (45-117); Creatine Kinase 433 U/L (39-308)
[2018-06-11 15:59] LABS: Hyaline Casts,Urine 0-3 /lpf (0-3); RBC,Urine 0-3 /hpf (0-3); WBC,Urine 0-5 /hpf (0-5)
[2018-06-11 16:06] LABS: CKMB Percent 0.7 % (0.0-4.0); Creatine Kinase MB 3.1 ng/mL (0.5-3.6)
[2018-06-11] MEDS ORDERED: Morphine Sulfate Inj 2 MG/ML Vial IV.PUSH ONE (16:09)
--- NOTE | 2018-06-11 16:09 | CT ---
EXAM DATE: 06/11/2018 3:46 PM EDT AGE/SEX: 47 years / Male INDICATIONS: Epigastric pain, nausea and vomiting. CLINICAL DATA: This is the patient's initial encounter. Patient reports that signs and symptoms have been present for 2 days and indicates a pain score of 7/10. MEDICAL/SURGICAL HISTORY: Pancreatitis. Hepatitis. Diabetes. Gastritis, hernia. None. RADIATION DOSE: 11.61 CTDI (mGy) COMPARISON: [facility] [place], CT ABDOMEN & PELVIS W CONTRAST, 05/23/2018. . TECHNIQUE: Multiple contiguous axial images were obtained through the abdomen. Images were obtained using multiple row detector helical technique. Using automated exposure control and adjustment of the mA and/or kV according to patient size, radiation dose was kept as low as reasonably achievable to o btain optimal diagnostic quality images. DICOM format image data is available electronically for rev iew and comparison. FINDINGS: Lower Lungs: The visualized lower lungs are clear. Liver: The liver has a homogeneous density without space-occupying lesion. There is no dilation of th e biliary tree. Spleen: Homogeneous density without enlargement. Pancreas: Scattered calcific deposits associated with mild pancreatic duct dilatation are again note d. The loculated fluid collection previously described adjacent to the pancreatic head represents the proximal duodenum. It demonstrates significant wall thickening. There are no findings suggestive of a loculated fluid collection at this time. Kidneys: Normal in size and shape. No evidence of mass or hydronephrosis. 3 cm simple left renal cys t is again noted. Adrenal Glands: Unremarkable. Aorta: The aorta and proximal iliac vessels are grossly unremarkable without aneurysmal dilation. Bowel/Mesentery: Significant duodenal wall thickening is identified. The bowel loops are otherwise g rossly unremarkable. The cecum and sigmoid colon have a normal configuration. Abdominal Wall: Intact. Retroperitoneum: No evidence of adenopathy in the retrocrural, para-aortic, or deep pelvic regions. Bladder: Contours are smooth. Reproductive Organs: No abnormal masses or calcifications seen. Inguinal: The inguinal region is unremarkable without evidence of adenopathy. Bony Structures: Unremarkable. CONCLUSION: 1. Thickened proximal duodenal wall. An Inflammatory versus neoplastic process should be excluded. 2. Chronic pancreatitis with pancreatic calcific deposits and dilated pancreatic duct. 3. Stable renal cyst. 4. No evidence of acute pancreatitis. Electronically signed by: Reinaldo Willis MD 06/11/2018 4:07 PM EDT
--- NOTE | 2018-06-11 17:29 | ED ---
HPI General Chief Complaint: Abdominal Pain Stated Complaint: Vomiting Black @ Night/Not Eating x 2 Days Time Seen by Provider: 06/11/18 14:07 Related Data Allergies Allergy/AdvReac Type Severity Reaction Status Date / Time No Known Allergies Allergy Unverified 06/11/18 14:40 [facility] Medical History Medical History Anxiety (Acute) Diabetes mellitus (Acute) Hepatitis (Acute) Hernia (Acute) Pancreatitis (Acute) Reflux gastritis (Acute) Surgical History Surgical History History of surgical procedure on eye proper using laser (Acute) Hx of tonsillectomy (Acute) Social History Social History Substance History: No History of Abuse Second Hand Smoke Exposure: No Smoking Status: Never smoker How Often Do You Have a Drink Containing Alcohol: 2 to 4 times a month Recent Travel in [facility] within the Last 8 Weeks: No Recent Out of Country Travel within the Last 8 Weeks: No Immunization History Tetanus Immunization: >5 Years Hx Influenza Vaccine This Season: Yes Course Initial Documented Vital Signs Temperature 98.9 F 06/11/18 14:34 Pulse Rate 83 06/11/18 14:34 Respiratory Rate 18 06/11/18 14:34 Blood Pressure 115/69 06/11/18 14:34 Pulse Oximetry 97 06/11/18 14:34 Last Documented Vital Signs Temperature 98.9 F 06/11/18 14:34 Pulse Rate 71 06/11/18 16:38 Respiratory Rate 16 06/11/18 16:43 Blood Pressure 117/72 06/11/18 16:38 Pulse Oximetry 98 06/11/18 16:38 Medical Decision Making Lab Data Lab results reviewed: Yes I reviewed the patient's lab results. Result diagrams: 06/11/18 15:09 06/11/18 15:09 Lab Results 06/11/18 06/11/18 06/11/18 Range/Units 14:51 15:00 15:09 CBC w Diff Auto diff final WBC 10.7 (4.0-11.0) th/mm3 RBC 4.75 (4.50-5.90) mil/mm3 Hgb 13.9 (13.0-17.0) gm/dL Hct 40.8 (39.0-51.0) % MCV 85.9 (80.0-100.0) fL MCH 29.3 (27.0-34.0) pg MCHC 34.1 (32.0-36.0) % RDW 12.9 (11.6-17.2) % Plt Count 222 (150-450) th/mm3 MPV 9.9 (7.0-11.0) fL Neut % (Auto) 87.7 H (16.0-70.0) % Lymph % (Auto) 7.3 L (9.0-44.0) % [place] % (Auto) 4.7 (0.0-8.0) % Eos % (Auto) 0.0 (0.0-4.0) % Baso % (Auto) 0.3 (0.0-2.0) % Neut # (Auto) 9.4 H (1.8-7.7) th/mm3 Lymph # (Auto) 0.8 L (1.0-4.8) th/mm3 [place] # (Auto) 0.5 (0.0-0.9) th/mm3 Eos # (Auto) 0.0 (0.0-0.4) th/mm3 Baso # (Auto) 0.0 (0.0-0.2) th/mm3 WBC Differential . Differential Comment . Sodium (136-145) meq/L Potassium (3.5-5.1) meq/L Chloride (98-107) meq/L Carbon Dioxide (21.0-32.0) meq/L Anion Gap (5-15) meq/L BUN (7-18) mg/dL Creatinine (0.60-1.30) mg/dL Estimated GFR (>89) mL/min POC Glucose 343 H (68-110) mg/dl Random Glucose (74-106) mg/dL Calcium (8.5-10.1) mg/dL Total Bilirubin (0.2-1.0) mg/dL AST (15-37) U/L ALT (12-78) U/L Alkaline Phosphatase (45-117) U/L Total Creatine Kinase (39-308) U/L CK-MB (CK-2) (0.5-3.6) ng/mL CK-MB (CK-2) % (0.0-4.0) % Troponin I (0.02-0.05) ng/mL Total Protein (6.4-8.2) g/dL Albumin (3.4-5.0) g/dL Lipase (73-393) U/L Urine Color Yellow (Yellw/Straw) Urine Clarity Clear (Clear) Urine pH 6.0 (5.0-8.5) Ur Specific [place] Greater/equal 1.030 (1.002-1.035) Urine Protein 30 H (Neg-Trace) mg/dL Urine Glucose (UA) 500 H (Negative) mg/dL Urine Ketones Trace (Negative) mg/dL Urine Occult Blood Moderate H (Negative) Urine Nitrate Negative (Negative) Urine Bilirubin Negative (Negative) Urine Urobilinogen 0.2 (Less than 2) mg/dL Ur Leukocyte Esterase Negative (Negative) Urine RBC 0-3 (0-3) /hpf Urine WBC 0-5 (0-5) /hpf Ur Squamous Epith Cells 6-10 H (0-5) /hpf Hyaline Casts 0-3 (0-3) /lpf Micro UA Comment Culture not ind Urine Culture Comments Culture not ind 06/11/18 Range/Units 15:09 CBC w Diff WBC (4.0-11.0) th/mm3 RBC (4.50-5.90) mil/mm3 Hgb (13.0-17.0) gm/dL Hct (39.0-51.0) % MCV (80.0-100.0) fL MCH (27.0-34.0) pg MCHC (32.0-36.0) % RDW (11.6-17.2) % Plt Count (150-450) th/mm3 MPV (7.0-11.0) fL Neut % (Auto) (16.0-70.0) % Lymph % (Auto) (9.0-44.0) % [place] % (Auto) (0.0-8.0) % Eos % (Auto) (0.0-4.0) % Baso % (Auto) (0.0-2.0) % Neut # (Auto) (1.8-7.7) th/mm3 Lymph # (Auto) (1.0-4.8) th/mm3 [place] # (Auto) (0.0-0.9) th/mm3 Eos # (Auto) (0.0-0.4) th/mm3 Baso # (Auto) (0.0-0.2) th/mm3 WBC Differential Differential Comment Sodium 135 L (136-145) meq/L Potassium 3.7 (3.5-5.1) meq/L Chloride 97 L (98-107) meq/L Carbon Dioxide 28.3 (21.0-32.0) meq/L Anion Gap 10 (5-15) meq/L BUN 34 H (7-18) mg/dL Creatinine 1.30 (0.60-1.30) mg/dL Estimated GFR 59 L (>89) mL/min POC Glucose (68-110) mg/dl Random Glucose 331 H (74-106) mg/dL Calcium 8.2 L (8.5-10.1) mg/dL Total Bilirubin 0.7 (0.2-1.0) mg/dL AST 20 (15-37) U/L ALT 24 (12-78) U/L Alkaline Phosphatase 81 (45-117) U/L Total Creatine Kinase 433 H (39-308) U/L CK-MB (CK-2) 3.1 (0.5-3.6) ng/mL CK-MB (CK-2) % 0.7 (0.0-4.0) % Troponin I Less than 0.02 L (0.02-0.05) ng/mL Total Protein 7.6 (6.4-8.2) g/dL Albumin 3.7 (3.4-5.0) g/dL Lipase 1991 H (73-393) U/L Urine Color (Yellw/Straw) Urine Clarity (Clear) Urine pH (5.0-8.5) Ur Specific [place] (1.002-1.035) Urine Protein (Neg-Trace) mg/dL Urine Glucose (UA) (Negative) mg/dL Urine Ketones (Negative) mg/dL Urine Occult Blood (Negative) Urine Nitrate (Negative) Urine Bilirubin (Negative) Urine Urobilinogen (Less than 2) mg/dL Ur Leukocyte Esterase (Negative) Urine RBC (0-3) /hpf Urine WBC (0-5) /hpf Ur Squamous Epith Cells (0-5) /hpf Hyaline Casts (0-3) /lpf Micro UA Comment Urine Culture Comments Imaging Data Attestation: I personally reviewed and interpreted this imaging study as follows : Radiologist's impression: ITS Impressions Abdomen/Pelvis CT 06/11/18 14:29 CONCLUSION: 1. Thickened proximal duodenal wall. An Inflammatory versus neoplastic process should be excluded. 2. Chronic pancreatitis with pancreatic calcific deposits and dilated pancreatic duct. 3. Stable renal cyst. 4. No evidence of acute pancreatitis. Discharge Plan Discharge Disposition Patient Disposition: 30 Still Patient Discharge Details Diagnosis: Pancreatitis, Hyperglycemia Physicians Team ED Provider: Maksim Boyle Primary Care Provider: Primary Care Physici,No Discharge Interventions Interventions: Vital Signs Last Done: 06/11/18 16:38 Status ED Status: With Doctor
[2018-06-11] MEDS ORDERED: Ketorolac Inj 30 MG/ML (IVP) Vial IV.PUSH PRN (18:14)
[2018-06-11] MEDS ORDERED: Dextrose 50% in Water 50 ML Vial IV.PUSH PRN (18:17)
[2018-06-11] MEDS: Enoxaparin Inj 30 MG/0.3 ML Syringe SQ SCH (19:05)
[2018-06-11] MEDS ORDERED: Haloperidol Inj 5 MG/ML Ampul IV.PUSH PRN (21:31)
[2018-06-11] MEDS: LORazepam 1 MG Tablet PO PRN (21:56)
[2018-06-12] MEDS: LORazepam 1 MG Tablet PO PRN ×3 (02:00→10:16)
--- NOTE | 2018-06-12 09:30 | P.HP ---
History of Present Illness Primary Care Physician: No Primary Care Physician History of Present Illness: This is a pleasant 47-year-old Sudanese-speaking male patient with a known medical history of insulin-dependent diabetes and history of acute pancreatitis who presented to the ED with complaints of abdominal pain, nausea and vomiting 2 days. Patient is Sudanese-speaking, a stress interpretation for assistance. Supposedly patient was having vomiting 2 days unable to eat anything without it coming up. He denies any blood or black emesis. His abdominal pain is located in his midepigastric area, rates the pain a 3 out of 10 currently, but an 8 out of 10 at its worst on pain scale. Patient denies any radiation of pain. He states that it did improve with medications in the ER. He does state that he ate some shrimp and drink some beer Friday evening and shortly after he developed the symptoms. He denies any sick contacts in his family. Denies any black or bloody stools. He states that his last bowel movement was on Friday. He usually has bowel movements twice a day. Denies any fevers or chills at home. Does admit to a headache denies any recent travel. It should be noted that patient was hospitalized 1 month ago for acute pancreatitis as well since that time he has been in his normal state of health. Patient also has a history of diabetes, does take insulin last time he took his insulin was yesterday morning. Denies any hypoglycemia. Last EGD was 2 years ago which supposedly hiatal hernia was found with no surgical intervention. Denies ever having colonoscopy in the past. - Diagnosis (1) Pancreatitis Inpatient Certification: I certify that the inpatient services were ordered in accordance with Medicare regulations governing the order. This includes certification that hospital inpatient services are reasonable and necessary and in the case of services not specified as inpatient-only under 42 CFR 419.22(n), that they are appropriately provided as inpatient services in accordance to with the 2-midnight benchmark under 43 CFR 412.3(e) Review of Systems All other systems reviewed negative except as stated in HPI PMFSH - History History Provided By: Patient - Medical History Medical History: Medical History (Last Updated 06/11/18 @ 14:38 by Traci Schwab) Anxiety Diabetes mellitus Hepatitis Hernia Pancreatitis Reflux gastritis - Surgical History Surgical History: Surgical History (Last Updated 06/11/18 @ 14:38 by Traci Schwab) History of surgical procedure on eye proper using laser Hx of tonsillectomy - Family History Family History: Family History (Last Updated 06/12/18 @ 12:19 by Vicky Castellon) Other No significant family history - Tobacco History Second Hand Smoke Exposure: No Tobacco Use In Past 30 Days: No Smoking Status: Former smoker Tobacco Type: Cigarettes - Alcohol History How Often Do You Have a Drink Containing Alcohol: 4 or more times a week - Substance Use History Substance History: No History of Abuse - Travel History Recent Travel in the [place] Within the Last 8 Weeks: No Recent Travel Out of the Country Within the Last 8 Weeks: No - Immunization History Tetanus Immunization: >5 Years Hx Influenza Vaccine This Season: Yes Medications and Allergies Active Medications: Active Medications Dextrose (D50w Vial) 50 ml IV.PUSH UNSCH PRN PRN Reason: PER HYPOGLYCEMIA PROTOCOL Enoxaparin Sodium (Lovenox Inj) 30 mg SQ Q24H [facility] Last Admin: 06/11/18 19:05 Dose: 30 mg Flumazenil (Romazecon Inj) 0.2 mg IV.PUSH Q1M PRN PRN Reason: OVERSEDATION Glucagon (Glucagon Inj) 1 mg OTHER PRN PRN PRN Reason: for Hypoglycemia Protocol Haloperidol Lactate (Haldol Inj) 1 mg IV.PUSH Q15M PRN PRN Reason: for severe agitation Lactated Ringer's (Lr 1000 Ml Inj) 1,000 mls @ 125 mls/hr IV.CONT .Q8H [facility] Last Admin: 06/12/18 03:10 Dose: 125 mls/hr Ketorolac Tromethamine (Toradol Inj) 30 mg IV.PUSH Q6H PRN PRN Reason: Pain 1-10 Last Admin: 06/11/18 21:12 Dose: 30 mg Lorazepam (Ativan) 1 mg PO Q4H PRN PRN Reason: for CIWA 8-10 Last Admin: 06/12/18 06:17 Dose: 1 mg Lorazepam (Ativan) 2 mg PO Q2H PRN PRN Reason: for CIWA 11-14 Lorazepam (Ativan Inj) 2 mg IV.PUSH Q2H PRN PRN Reason: for CIWA 11-14 Lorazepam (Ativan Inj) 2 mg IV.PUSH Q1H PRN PRN Reason: for CIWA 15-20 Lorazepam (Ativan Inj) 2 mg IV.PUSH Q15M PRN PRN Reason: for CIWA > 20 Lorazepam (Ativan Inj) 1 mg IV.PUSH Q4H PRN PRN Reason: for CIWA 8-10 Pantoprazole Sodium (Protonix) 40 mg PO DAILY [facility] Last Admin: 06/11/18 20:33 Dose: Not Given Promethazine HCl (Phenergan Inj) 25 mg IM Q6H PRN PRN Reason: NAUSEA OR VOMITING Sodium Chloride (Ns Flush) 2 ml IV.FLUSH BID [facility] Last Admin: 06/11/18 20:31 Dose: Not Given Sodium Chloride (Ns Flush) 2 ml IV.FLUSH PRN PRN PRN Reason: FLUSH AFTER USING IV ACCESS Allergies Allergy/AdvReac Type Severity Reaction Status Date / Time No Known Allergies Allergy Unverified 06/11/18 14:40 Home Medications Medication Instructions Recorded Confirmed Type insulin regular human [Novolin R 06/11/18 History Regular U-100 Insuln] omeprazole 40 mg PO DAILY 06/11/18 06/11/18 History Exam Vital signs: Vital Signs 06/11/18 14:34 06/11/18 16:38 06/11/18 16:43 Temperature 98.9 F Pulse Rate 83 71 Respiratory Rate 18 16 16 Blood Pressure 115/69 117/72 Pulse Oximetry 97 98 06/11/18 18:58 06/11/18 20:06 06/11/18 21:45 Temperature Pulse Rate 74 76 Respiratory Rate 16 17 0 L Blood Pressure 117/76 120/80 Pulse Oximetry 97 99 06/11/18 22:04 06/12/18 01:37 06/12/18 08:00 Temperature 99.0 F 97.0 F L 98.2 F Pulse Rate 61 57 L 52 L Respiratory Rate 18 18 16 Blood Pressure 139/74 123/74 135/68 Pulse Oximetry 96 94 L 96 Intake & Output 06/11/18 06/12/18 06/12/18 18:59 06:59 18:59 Intake Total 1000 / 1000 Output Total 830 / 830 Balance 170 / 170 Weight 75.5 kg 73.7 kg Intake: IV 1000 / 1000 LR 1000 mL Inj 1,000 ML @ 125 1000 / 1000 mls/hr IV.CONT .Q8H [facility] Rx#: [id number] Output: Urine 830 / 830 Other: # Voids 1 Weight On Admission 73.7 kg Narrative: GENERAL: Well-developed, well-nourished patient in NAD. SKIN: Warm and dry. No rash. HEAD: Normocephalic. Atraumatic. EYES: Pupils equal and round. No scleral icterus. No injection or drainage. ENT: No nasal bleeding or discharge. Mucous membranes pink and moist. NECK: Supple. Trachea midline. CARDIOVASCULAR: Regular rate and rhythm. S1, S2 noted. No murmur appreciated. RESPIRATORY: No accessory muscle use. Clear to auscultation. Breath sounds equal bilaterally. GASTROINTESTINAL: Abdomen soft, nondistended. Normoactive bowel sounds x4. Tenderness to epigastric area MUSCULOSKELETAL: No obvious deformities. Extremities without clubbing, cyanosis , or edema. NEUROLOGICAL: Awake and alert. No obvious cranial nerve deficits. Motor grossly within normal limits. 5/5 muscle strength in bilateral upper and lower extremities. Normal speech. PSYCHIATRIC: Appropriate mood and affect; insight and judgment normal. Results - Labs CBC & Chem 7: 06/11/18 15:09 06/11/18 15:09 Labs: Laboratory Results - last 24 hr 06/11/18 06/11/18 06/11/18 14:51 15:00 15:09 CBC w Diff Auto diff final WBC 10.7 RBC 4.75 Hgb 13.9 Hct 40.8 MCV 85.9 MCH 29.3 MCHC 34.1 RDW 12.9 Plt Count 222 MPV 9.9 Neut % (Auto) 87.7 H Lymph % (Auto) 7.3 L [place] % (Auto) 4.7 Eos % (Auto) 0.0 Baso % (Auto) 0.3 Neut # (Auto) 9.4 H Lymph # (Auto) 0.8 L [place] # (Auto) 0.5 Eos # (Auto) 0.0 Baso # (Auto) 0.0 WBC Differential . Differential Comment . Sodium Potassium Chloride Carbon Dioxide Anion Gap BUN Creatinine Estimated GFR POC Glucose 343 H Random Glucose Calcium Total Bilirubin AST ALT Alkaline Phosphatase Total Creatine Kinase CK-MB (CK-2) CK-MB (CK-2) % Troponin I Total Protein Albumin Lipase Urine Color Yellow Urine Clarity Clear Urine pH 6.0 Ur Specific [place] Greater/equal 1.030 Urine Protein 30 H Urine Glucose (UA) 500 H Urine Ketones Trace Urine Occult Blood Moderate H Urine Nitrate Negative Urine Bilirubin Negative Urine Urobilinogen 0.2 Ur Leukocyte Esterase Negative Urine RBC 0-3 Urine WBC 0-5 Ur Squamous Epith Cells 6-10 H Hyaline Casts 0-3 Micro UA Comment Culture not ind Urine Culture Comments Culture not ind 06/11/18 06/11/18 06/12/18 15:09 21:02 07:29 CBC w Diff WBC RBC Hgb Hct MCV MCH MCHC RDW Plt Count MPV Neut % (Auto) Lymph % (Auto) [place] % (Auto) Eos % (Auto) Baso % (Auto) Neut # (Auto) Lymph # (Auto) [place] # (Auto) Eos # (Auto) Baso # (Auto) WBC Differential Differential Comment Sodium 135 L Potassium 3.7 Chloride 97 L Carbon Dioxide 28.3 Anion Gap 10 BUN 34 H Creatinine 1.30 Estimated GFR 59 L POC Glucose 147 H 202 H Random Glucose 331 H Calcium 8.2 L Total Bilirubin 0.7 AST 20 ALT 24 Alkaline Phosphatase 81 Total Creatine Kinase 433 H CK-MB (CK-2) 3.1 CK-MB (CK-2) % 0.7 Troponin I Less than 0.02 L Total Protein 7.6 Albumin 3.7 Lipase 1990 H Urine Color Urine Clarity Urine pH Ur Specific [place] Urine Protein Urine Glucose (UA) Urine Ketones Urine Occult Blood Urine Nitrate Urine Bilirubin Urine Urobilinogen Ur Leukocyte Esterase Urine RBC Urine WBC Ur Squamous Epith Cells Hyaline Casts Micro UA Comment Urine Culture Comments - Imaging Impressions Abdomen/Pelvis CT 06/11/18 14:29 CONCLUSION: 1. Thickened proximal duodenal wall. An Inflammatory versus neoplastic process should be excluded. 2. Chronic pancreatitis with pancreatic calcific deposits and dilated pancreatic duct. 3. Stable renal cyst. 4. No evidence of acute pancreatitis. Caprini VTE Risk Assessment Caprini VTE Risk Assessment: No/Low Risk (score <= 1) Caprini Risk Assessment Model: Point Value = 1 Point Value = 2 Point Value = 3 Point Value = 5 Age 41-60 Minor surgery BMI > 25 kg/m2 Swollen legs Varicose veins or History of unexplained or recurrent spontaneous Oral contraceptives or hormone replacement Sepsis (< 1 month) Serious lung disease, including pneumonia (< 1 month) Abnormal pulmonary function Acute myocardial infarction Congestive heart failure (< 1 month) History of inflammatory bowel disease Medical patient at bed rest Age 61-74 Arthroscopic surgery Major open surgery (> 45 min) Laparoscopic surgery (> 45 min) Malignancy Confined to bed (> 72 hours) Immobilizing plaster cast Central venous access Age >= 75 History of VTE Family history of VTE Factor V Leiden Prothrombin [id number] Lupus anticoagulant Anticardiolipin antibodies Elevated serum homocysteine Heparin-induced thrombocytopenia Other congenital or acquired thrombophilia Stroke (< 1 month) Elective arthroplasty Hip, pelvis, or leg fracture Acute spinal cord injury (< 1 month) Prophylaxis Regimen: Total Risk Factor Score Risk Level Prophylaxis Regimen 0-1 Low Early ambulation 2 Moderate Order ONE of the following: *Sequential Compression Device (SCD) *Heparin 5000 units SQ BID 3-4 Higher Order ONE of the following medications: *Heparin 5000 units SQ TID *Enoxaparin/Lovenox 40 mg SQ daily (WT < 150 kg, CrCl > 30 mL/min) *Enoxaparin/Lovenox 30 mg SQ daily (WT < 150 kg, CrCl > 10-29 mL/min) *Enoxaparin/Lovenox 30 mg SQ BID (WT < 150 kg, CrCl > 30 mL/min) AND/OR *Sequential Compression Device (SCD) 5 or more Highest Order ONE of the following medications: *Heparin 5000 units SQ TID (Preferred with Epidurals) *Enoxaparin/Lovenox 40 mg SQ daily (WT < 150 kg, CrCl > 30 mL/min) *Enoxaparin/Lovenox 30 mg SQ daily (WT < 150 kg, CrCl > 10-29 mL/min) *Enoxaparin/Lovenox 30 mg SQ BID (WT < 150 kg, CrCl > 30 mL/min) AND *Sequential Compression Device (SCD) Assessment and Plan - Assessment (1) Pancreatitis Code(s): K85.90 - Acute pancreatitis without necrosis or infection, unspecified Status: Acute Plan: Lipase on presentation 1990. Abdominal/pelvis CT on presentation showing thickened proximal duodenal wall. Possible ulcer. Continue Protonix. Add Maalox. Will consult GI. Appreciate input and recommendations. Last EGD 2 yeas ago, hiatal hernia was present. Phenergan available for nausea. Morphine IV for pain. (1) Pancreatitis Qualifiers: Chronicity: chronic Pancreatitis type: alcohol induced Qualified Code(s): K86.0 - Alcohol-induced chronic pancreatitis
[2018-06-12] MEDS ORDERED: Dextrose 50% in Water 50 ML Vial IV.PUSH PRN (09:52)
[2018-06-12] MEDS ORDERED: Lidocaine PF 1% Inj 5 ML Syringe INFILTRATN ONE (12:00)
[2018-06-12] MEDS: Insulin NovoLOG Aspart Correctional Sugar Inj SQ SCH ×3 (12:31→21:53)
[2018-06-12] MEDS ORDERED: Aluminum/Magnesium/Simethacone Susp 30 ML UDC PO ONE (13:00)
[2018-06-12] MEDS: Enoxaparin Inj 30 MG/0.3 ML Syringe SQ SCH (17:28)
[2018-06-12] MEDS ORDERED: Chlorhexidine Gluconate 2% 1 Pack (2 Cloths) TOPICAL SCH (17:30)
[2018-06-12] MEDS ORDERED: Metoprolol Tartrate 25 MG Tablet PO SCH (17:30)
[2018-06-12] MEDS ORDERED: Sodium Chlor 0.9% Inj 500 ML IV.SIG SCH (18:00)
[2018-06-12] MEDS: Morphine Sulfate Inj 2 MG/ML Vial IV.PUSH PRN (21:52)
[2018-06-13] MEDS: Morphine Sulfate Inj 2 MG/ML Vial IV.PUSH PRN ×2 (05:52→12:55)
[2018-06-13] MEDS: Insulin NovoLOG Aspart Correctional Sugar Inj SQ SCH ×4 (09:11→22:31)
[2018-06-13] MEDS ORDERED: Sucralfate Liq 1 GM/10 ML UDC PO ONE (10:21)
[2018-06-13] MEDS ORDERED: Aluminum/Magnesium/Simethacone Susp 30 ML UDC PO ONE (10:21)
--- NOTE | 2018-06-13 10:25 | P.PNIM ---
Subjective Interval history: Follow-up abdominal pain. Patient seen and examined, sitting on side of bed with continued complaints of midepigastric burning and pain. Patient is status post EGD. Awaiting further GI recommendations. We will continue IV fluids, patient does report pain with eating this morning. Continue pain medications. Will give Maalox as well as Carafate. Assess response. Physical Exam Vital signs: Vital Signs 06/12/18 12:00 06/12/18 16:00 06/12/18 18:14 Temperature 99.7 F H 98.5 F 99.1 F Pulse Rate 57 L 57 L 54 L Respiratory Rate 17 17 20 Blood Pressure 120/63 110/61 119/66 Pulse Oximetry 95 94 L 96 06/12/18 19:25 06/12/18 19:40 06/12/18 19:52 Temperature 99.0 F 99.2 F Pulse Rate 57 L 54 L 48 L Respiratory Rate 14 16 16 Blood Pressure 130/81 129/82 141/84 H Pulse Oximetry 96 96 98 06/13/18 00:00 06/13/18 07:39 Temperature 98.9 F 98.7 F Pulse Rate 54 L 58 L Respiratory Rate 20 20 Blood Pressure 134/85 140/70 Pulse Oximetry 95 95 Intake & Output 06/12/18 06/13/18 06/13/18 18:59 06:59 18:59 Intake Total 2240 / 2240 300 / 300 Output Total 350 / 350 Balance 2240 / 2240 -50 / -50 Weight 76.2 kg Intake: IV 2000 / 2000 300 / 300 LR 1000 mL Inj 1,000 ML @ 125 1000 / 1000 300 / 300 mls/hr IV.CONT .Q8H [facility] Rx#: [id number] Oral 240 / 240 0 / 0 Output: Urine 350 / 350 Other: # Voids 7 2 # Bowel Movements 2 Narrative: GENERAL: Well-developed, well-nourished patient with abdominal pain. SKIN: Warm and dry. No rash. HEAD: Normocephalic. Atraumatic. EYES: Pupils equal and round. No scleral icterus. No injection or drainage. ENT: No nasal bleeding or discharge. Mucous membranes pink and moist. NECK: Supple. Trachea midline. CARDIOVASCULAR: Regular rate and rhythm. S1, S2 noted. No murmur appreciated. RESPIRATORY: No accessory muscle use. Clear to auscultation. Breath sounds equal bilaterally. GASTROINTESTINAL: Abdomen soft, nondistended. Normoactive bowel sounds x4. tender to midepigastric area. MUSCULOSKELETAL: No obvious deformities. Extremities without clubbing, cyanosis , or edema. NEUROLOGICAL: Awake and alert. No obvious cranial nerve deficits. Motor grossly within normal limits. 5/5 muscle strength in bilateral upper and lower extremities. Normal speech. PSYCHIATRIC: Appropriate mood and affect; insight and judgment normal. Results - Labs CBC & Chem 7: 06/11/18 15:09 06/11/18 15:09 Laboratory Results - last 24 hr 06/12/18 06/12/18 06/12/18 11:53 15:51 21:35 POC Glucose 215 H 166 H 178 H 06/13/18 07:31 POC Glucose 211 H Assessment and Plan - Assessment (1) Pancreatitis Code(s): K85.90 - Acute pancreatitis without necrosis or infection, unspecified Status: Acute Plan: Lipase on presentation 1990. Will recheck lipase level today. Abdominal/pelvis CT on presentation showing thickened proximal duodenal wall. Added Maalox and Carafate. GI following. Appreciate input and recommendations. Underwent EGD yesterday, duodenitis. Continue PPI. Phenergan available for nausea. Morphine IV for pain. Continue IVF. Advance diet as tolerated. Still having pain. - Plan Discharge Planning: Weight clinical improvement, patient still having significant pain. Unable to tolerate p.o. intake. (1) Pancreatitis Qualifiers: Chronicity: chronic Pancreatitis type: alcohol induced Qualified Code(s): K86.0 - Alcohol-induced chronic pancreatitis
[2018-06-13] MEDS: Aluminum/Magnesium/Simethacone Susp 30 ML UDC PO SCH ×2 (16:11→22:00)
[2018-06-13] MEDS: HYDROmorphone PF Inj 2 MG/ML Vial IV.PUSH PRN ×2 (16:18→22:01)
[2018-06-13] MEDS: LORazepam 1 MG Tablet PO PRN (16:20)
[2018-06-13] MEDS: Enoxaparin Inj 30 MG/0.3 ML Syringe SQ SCH (18:37)
[2018-06-13] MEDS: Sucralfate Liq 1 GM/10 ML UDC PO SCH (22:00)
[2018-06-14] MEDS: HYDROmorphone PF Inj 2 MG/ML Vial IV.PUSH PRN ×3 (04:49→14:11)
[2018-06-14] MEDS: Aluminum/Magnesium/Simethacone Susp 30 ML UDC PO SCH ×4 (04:50→17:06)
[2018-06-14] MEDS: Sucralfate Liq 1 GM/10 ML UDC PO SCH ×4 (04:50→17:06)
[2018-06-14] MEDS ORDERED: HYDROmorphone PF Inj 2 MG/ML Vial IV.PUSH ONE (07:19)
[2018-06-14] MEDS: Insulin NovoLOG Aspart Correctional Sugar Inj SQ SCH ×4 (07:48→21:18)
--- NOTE | 2018-06-14 08:54 | P.PNIM ---
Subjective Interval history: Follow-up acute pancreatitis. Patient seen and examined, [employer] video use for translating. Patient is lying in bed comfortably. Pain has improved. Does admit to one bout of emesis before breakfast this morning. Tolerated clear liquids this morning without any increase in pain or nausea vomiting. Patient seems to be improving. Vital signs stable. Physical Exam Vital signs: Vital Signs 06/13/18 11:19 06/13/18 15:16 06/13/18 20:00 Temperature 98.5 F 99.2 F 97.7 F Pulse Rate 60 61 67 Respiratory Rate 20 20 20 Blood Pressure 136/72 148/80 H 129/74 Pulse Oximetry 95 94 L 98 06/14/18 00:00 06/14/18 02:56 06/14/18 07:53 Temperature 97.3 F L 97.6 F Pulse Rate 70 80 Respiratory Rate 20 20 20 Blood Pressure 114/61 115/77 Pulse Oximetry 97 94 L Intake & Output 06/13/18 06/14/18 06/14/18 18:59 06:59 18:59 Intake Total 1540 / 1540 2480 / 2480 Output Total 1050 / 1050 Balance 1540 / 1540 1430 / 1430 Weight 76.4 kg Intake: IV 700 / 700 2000 / 2000 LR 1000 mL Inj 1,000 ML @ 125 700 / 700 1000 / 1000 mls/hr IV.CONT .Q8H PILAR Rx#: [id number] LR 1000 mL Inj 1,000 ML @ 30 1000 / 1000 mls/hr IV.SIG .Q24H PILAR Rx#: [id number] Oral 840 / 840 480 / 480 Output: Urine 1050 / 1050 Other: # Voids 4 Narrative: GENERAL: Well-developed, well-nourished patient with abdominal pain. SKIN: Warm and dry. No rash. HEAD: Normocephalic. Atraumatic. EYES: Pupils equal and round. No scleral icterus. No injection or drainage. ENT: No nasal bleeding or discharge. Mucous membranes pink and moist. NECK: Supple. Trachea midline. CARDIOVASCULAR: Regular rate and rhythm. S1, S2 noted. No murmur appreciated. RESPIRATORY: No accessory muscle use. Clear to auscultation. Breath sounds equal bilaterally. GASTROINTESTINAL: Abdomen soft, nondistended. Normoactive bowel sounds x4. Mild tenderness to midepigastric area. MUSCULOSKELETAL: No obvious deformities. Extremities without clubbing, cyanosis , or edema. NEUROLOGICAL: Awake and alert. No obvious cranial nerve deficits. Motor grossly within normal limits. 5/5 muscle strength in bilateral upper and lower extremities. Normal speech. PSYCHIATRIC: Appropriate mood and affect; insight and judgment normal. Results - Labs CBC & Chem 7: 06/11/18 15:09 06/11/18 15:09 Laboratory Results - last 24 hr 06/13/18 06/13/18 06/13/18 11:53 12:27 18:31 POC Glucose 175 H 256 H Lipase 1490 H 06/13/18 06/14/18 22:21 07:16 POC Glucose 202 H 215 H Lipase Assessment and Plan - Assessment (1) Pancreatitis Code(s): K85.90 - Acute pancreatitis without necrosis or infection, unspecified Status: Acute Plan: Lipase on presentation 1990. Trending down. Abdominal/pelvis CT on presentation showing thickened proximal duodenal wall. Continue Maalox and Carafate. GI following. Appreciate input and recommendations. Underwent EGD, duodenitis. Continue PPI. Phenergan available for nausea. Dilaudid IV for pain. Continue IVF. Advance diet as tolerated. Still having pain. Improving some. Monitor for improvement. - Plan Discharge Planning: Pending clinical improvement, patient still having pain, n/v. (1) Pancreatitis Qualifiers: Chronicity: chronic Pancreatitis type: alcohol induced Qualified Code(s): K86.0 - Alcohol-induced chronic pancreatitis
[2018-06-14] MEDS: Enoxaparin Inj 30 MG/0.3 ML Syringe SQ SCH ×2 (17:07→21:14)
[2018-06-14] MEDS: LORazepam 1 MG Tablet PO PRN (21:15)
--- NOTE | 2018-06-14 23:44 | MB ---
cc: Kevin Jay MD DATE: 06/14/2018 REASON FOR CONSULTATION: Abdominal pain, nausea, vomiting, abnormal CT scan. REFERRING PHYSICIAN: Dr. Sejal River. Thank you for the consultation. HISTORY OF PRESENT ILLNESS: This is a 37-year-old gentleman, Kinyarwanda speaking only. The patient has a history of diabetes and history of acute pancreatitis, most likely related to alcohol. The patient came complaining with nausea, vomiting for 2 days, with abdominal pain, not related to food and came to the emergency room because of that. The patient's pain was about 8-9/10, mostly in the midepigastric area, radiating to the back. He denied any vomiting blood. No hematemesis, no diarrhea, no other complaints at this time. He had diabetes, not treated with insulin. REVIEW OF SYSTEMS: All 12-point negative except HPI. PAST MEDICAL HISTORY: Significant for: 1. Diabetes. 2. Hepatitis. 3. Hernia. 4. Pancreatitis. 5. Reflux. 6. Gastritis. 7. The patient has history of eye surgery with laser. 8. Tonsillectomy. FAMILY HISTORY: Noncontributory. SOCIAL HISTORY: No tobacco, used to smoke in the past. The patient drinks alcohol a few times a week. REVIEW OF SYSTEMS: All 12-point negative except HPI. MEDICATIONS: Reviewed in the chart. ALLERGIES: NO KNOWN DRUG ALLERGIES. PHYSICAL EXAMINATION: GENERAL: Alert, oriented, in no acute distress. VITAL SIGNS: Stable. HEENT: Pupils are reactive to light. NECK: Supple. PULMONARY: Chest clear to auscultation and percussion. CARDIAC: Regular rate and rhythm. No murmur or gallops. ABDOMEN: Midepigastric tenderness, with some guarding. Positive bowel sounds. No hepatosplenomegaly. EXTREMITIES: No edema, clubbing or cyanosis. PSYCHOLOGIC: Appropriate. NEUROLOGIC: No focal abnormality. LABORATORY DATA: White count 10.7, hemoglobin 13.9, platelet 222. Sodium 135, BUN 34, creatinine 1.30. Lipase 1991, AST 20, ALT 24, total bilirubin 0.7. IMAGING: CT of the abdomen showed: 1. Possible duodenitis versus mass. 2. Thickening of the duodenal wall. 3. Chronic pancreatitis with calcifications. 4. Renal cyst. ASSESSMENT AND PLAN: 1. Patient with acute on chronic pancreatitis, severe elevation of his lipase. 2. Most likely alcohol related. 3. The patient also has thickening of the duodenum, questionable peptic ulcer disease versus mass. 4. I recommend doing upper endoscopy. We will plan on doing this today. 5. Pancreatitis, acute on chronic. 6. The patient was advised to have a better control of his diabetes. 7. Avoid alcohol completely. 8. We will followup lipase. 9. Further plan depending on the endoscopy. MD ISABEL Bonner/MARKO , 10:58 PM , 11:42 PM
[2018-06-15] MEDS: Sucralfate Liq 1 GM/10 ML UDC PO SCH ×2 (00:11→05:24)
[2018-06-15] MEDS: Aluminum/Magnesium/Simethacone Susp 30 ML UDC PO SCH ×2 (00:11→05:24)
[2018-06-15] MEDS: Insulin NovoLOG Aspart Correctional Sugar Inj SQ SCH (08:09)
--- NOTE | 2018-06-15 08:28 | P.DS ---
Date of admission: 06/12/18 11:09 Primary care physician: No Primary Care Physician Brief History from admission: This is a pleasant 47-year-old [place]uran-speaking male patient with a known medical history of insulin-dependent diabetes and history of acute pancreatitis who presented to the ED with complaints of abdominal pain, nausea and vomiting 2 days. Patient is [place]-speaking, a stress interpretation for assistance. Supposedly patient was having vomiting 2 days unable to eat anything without it coming up. He denies any blood or black emesis. His abdominal pain is located in his midepigastric area, rates the pain a 3 out of 10 currently, but an 8 out of 10 at its worst on pain scale. Patient denies any radiation of pain. He states that it did improve with medications in the ER. He does state that he ate some shrimp and drink some beer Friday evening and shortly after he developed the symptoms. He denies any sick contacts in his family. Denies any black or bloody stools. He states that his last bowel movement was on Friday. He usually has bowel movements twice a day. Denies any fevers or chills at home. Does admit to a headache denies any recent travel. It should be noted that patient was hospitalized 1 month ago for acute pancreatitis as well since that time he has been in his normal state of health. Patient also has a history of diabetes, does take insulin last time he took his insulin was yesterday morning. Denies any hypoglycemia. Last EGD was 2 years ago which supposedly hiatal hernia was found with no surgical intervention. Denies ever having colonoscopy in the past. DS: Diagnosis - Discharge Diagnosis (1) Pancreatitis Status: Acute (2) Duodenitis Status: Acute DS: Medications - Discharge Medications Prescriptions: alum-mag hydroxide-simeth [Mag-Al Plus] 30 ml PO Q6HR 2 Days #180 ml hydrocodone-acetaminophen 1 tab PO Q4H PRN #10 tab PRN Reason: Pain Scale 1 To 10 ondansetron 4 mg PO Q6H PRN 10 Days tab PRN Reason: Nausea Or Vomiting sucralfate 1 gm PO Q6HR 2 Days ml DS: Summary Hospital Course: This 47-year-old male patient presented with abdominal pain, nausea and vomiting. Lipase on presentation 1990. Trended down during hospitalization. Abdominal/pelvis CT on presentation showing thickened proximal duodenal wall. Was given Maalox and Carafate. Consult placed to gastroenterology, underwent an EGD findings for duodenitis. Continue on PPI. Dilaudid IV for pain. Wean down to [place] as needed. Patient is continued on IV fluids. Advance diet to full liquid, tolerating well with no abdominal pain, nausea or vomiting. Phenergan was given for nausea as needed. Patient improved upon day of discharge. Encouraged to return to ED if symptoms worsen. Pain medication ordered and printed for patient as well as other GI medications on discharge plan. - Time Spent with Patient Total time spent providing and/or coordinating discharge services: Greater than 30 minutes - Quality: VTE Deep Vein Thrombosis/Pulmonary Embolism Present on Admission: No Exam Vital signs: Vital Signs 06/14/18 11:21 06/14/18 16:10 06/14/18 20:00 Temperature 97.4 F L 97.5 F L 99.1 F Pulse Rate 76 105 H 78 Respiratory Rate 20 20 16 Blood Pressure 118/72 139/85 132/80 Pulse Oximetry 94 L 94 L 94 L 06/15/18 00:00 Temperature 98.8 F Pulse Rate 75 Respiratory Rate 16 Blood Pressure 124/70 Pulse Oximetry 95 Intake & Output 06/14/18 06/15/18 06/15/18 18:59 06:59 18:59 Intake Total 1960 / 1960 1000 / 1000 Output Total 400 / 400 Balance 1560 / 1560 1000 / 1000 Intake: IV 1000 / 1000 1000 / 1000 LR 1000 mL Inj 1,000 ML @ 125 1000 / 1000 1000 / 1000 mls/hr IV.CONT .Q8H PILAR Rx#: [id number] Oral 960 / 960 Output: Emesis 400 / 400 Other: # Voids 5 # Emeses 1 Narrative: GENERAL: Well-developed, well-nourished patient in NAD. SKIN: Warm and dry. No rash. HEAD: Normocephalic. Atraumatic. EYES: Pupils equal and round. No scleral icterus. No injection or drainage. ENT: No nasal bleeding or discharge. Mucous membranes pink and moist. NECK: Supple. Trachea midline. CARDIOVASCULAR: Regular rate and rhythm. S1, S2 noted. No murmur appreciated. RESPIRATORY: No accessory muscle use. Clear to auscultation. Breath sounds equal bilaterally. GASTROINTESTINAL: Abdomen soft, non-tender, nondistended. Normoactive bowel sounds x4. MUSCULOSKELETAL: No obvious deformities. Extremities without clubbing, cyanosis , or edema. NEUROLOGICAL: Awake and alert. No obvious cranial nerve deficits. Motor grossly within normal limits. 5/5 muscle strength in bilateral upper and lower extremities. Normal speech. PSYCHIATRIC: Appropriate mood and affect; insight and judgment normal. - Constitutional no acute distress - Routine HEENT Exam Head: Present: normocephalic Eye: Present: EOMI ENT: Present: mucous membranes moist - Routine Neck Exam Present: supple Results Procedures completed during hospitalization: EGD. Pending studies at discharge: Pending at discharge 06/12/18 07:42 Surgical [PTH] Routine Labs on day of discharge: Labs from last 24 hours 06/15/18 06/14/18 06/14/18 07:48 21:07 16:37 POC Glucose 171 H 187 H 269 H 06/14/18 11:36 POC Glucose 199 H - Impressions ITS Impressions Abdomen/Pelvis CT 06/11/18 14:29 CONCLUSION: 1. Thickened proximal duodenal wall. An Inflammatory versus neoplastic process should be excluded. 2. Chronic pancreatitis with pancreatic calcific deposits and dilated pancreatic duct. 3. Stable renal cyst. 4. No evidence of acute pancreatitis. Discharge Plan - Discharge Disposition Patient Disposition: Discharge Home - Discharge Condition Condition: Good - Discharge Order Discharge Orders: Discharge Order (Routine); Ordered 06/15/18 Ordered By: Vicky Castellon - Discharge Details Anticipated Discharge Date: 06/15/18 - Physicians Team Primary Care Provider: Primary Care Kandace,Emily Attending Provider: Sejal River Other Providers: Alexandre Ayala MD - Rxs /Orders / Referrals /Forms Prescriptions: New alum-mag hydroxide-simeth [Mag-Al Plus] 200-200-20 mg/5 mL Suspension 30 ml PO Q6HR 2 Days Qty: 180 RF: 0 hydrocodone-acetaminophen 5-325 mg Tablet 1 tab PO Q4H PRN (Reason: Pain Scale 1 To 10) Qty: 10 RF: 0 ondansetron 4 mg Tablet,Disintegrating 4 mg PO Q6H PRN (Reason: Nausea Or Vomiting) 10 Days RF: 0 sucralfate 100 mg/mL Suspension 1 gm PO Q6HR 2 Days RF: 0 Continue insulin regular human [Novolin R Regular U-100 Insuln] 100 unit/mL Solution omeprazole 40 mg Capsule,Delayed Release(Dr/Ec) 40 mg PO DAILY Referrals: Primary Care Emily Jeronimo [Primary Care Provider] - 06/22/18
[2018-06-15] MEDS ORDERED: Lidocaine PF 1% Inj 5 ML Syringe INFILTRATN ONE (12:00)
== END 2018-06-15 11:00 | disposition home or self-care (01) ==
LOC: PHED 13:56 → PHEDA 13:56 → PH3 20:10
PROVIDERS: ADMIT Hospitalist; ATTEND Hospitalist
PROC: PANENDO (2018-06-12 19:10)

== ENCOUNTER 2018-08-21 14:25 | Inpatient (IN) ==
[2018-08-21] MEDS ORDERED: Sod Chloride 0.9% Inj 1,000 ML IV.SIG ONE (15:28)
[2018-08-21] MEDS ORDERED: Morphine Inj 4 MG/ML Vial IV.PUSH ONE (15:28)
--- NOTE | 2018-08-21 15:31 | ED ---
HPI General Chief complaint: Nausea/Vomiting/Diarrhea Stated complaint: vomiting x 3 days Time Seen by Provider: 08/21/18 15:28 Source: patient Mode of arrival: ambulatory Limitations: no limitations History of Present Illness HPI narrative: 48-year-old male patient with previous history of colitis, pancreatitis, duodenitis, hepatitis, diabetes, presents to the ER today because he has had 3 days history of nausea, vomiting, 10 out of 10 upper abdominal pains, not keeping much down. He denies any fevers, diarrhea, or any other symptoms. He states that it feels like his previous episodes of abdominal pains. He denies any recent alcohol use. Related Data Home Medications Medication Instructions Recorded Confirmed insulin regular human [Novolin R 20 units SUB-Q BID 06/11/18 Regular U-100 Insuln] Allergies Allergy/AdvReac Type Severity Reaction Status Date / Time No Known Allergies Allergy Verified 08/21/18 16:39 Review of Systems ROS: all other systems reviewed are negative PMFSH History History Provided By: Patient Medical History Medical History Reflux gastritis (Acute) Anxiety (Acute) Hepatitis (Acute) Pancreatitis (Acute) Diabetes mellitus (Acute) Hernia (Acute) Surgical History Surgical History History of surgical procedure on eye proper using laser (Acute) Hx of tonsillectomy (Acute) Family History Family History Other No significant family history Social History Social History Substance History: No History of Abuse Second Hand Smoke Exposure: No Smoking Status: Former smoker Tobacco Type: Cigarettes How Often Do You Have a Drink Containing Alcohol: Monthly or less Recent Travel in [facility] within the Last 8 Weeks: No Recent Out of Country Travel within the Last 8 Weeks: No Exam Narrative Exam Narrative: GENERAL: Well-developed middle-age male patient currently in moderate distress. Awake and oriented 3. SKIN: Focused skin assessment warm/dry. HEAD: Atraumatic. Normocephalic. EYES: Pupils equal and round. No scleral icterus. No injection or drainage. ENT: No nasal bleeding or discharge. Mucous membranes pink and moist. NECK: Trachea midline. No JVD. CARDIOVASCULAR: Regular rate and rhythm. No murmur appreciated. RESPIRATORY: No accessory muscle use. Clear to auscultation. Breath sounds equal bilaterally. GASTROINTESTINAL: Abdomen soft, upper abdominal tenderness without guarding or rebound, nondistended. Hepatic and splenic margins not palpable. MUSCULOSKELETAL: No obvious deformities. No clubbing. No cyanosis. No edema. NEUROLOGICAL: Awake and alert. No obvious cranial nerve deficits. Motor grossly within normal limits. Normal speech. PSYCHIATRIC: Appropriate mood and affect; insight and judgment normal. Course Initial Documented Vital Signs Temperature 98.1 F 08/21/18 14:33 Pulse Rate 86 08/21/18 14:33 Respiratory Rate 16 08/21/18 14:33 Blood Pressure 119/83 08/21/18 14:33 Pulse Oximetry 97 08/21/18 14:33 Last Documented Vital Signs Temperature 98.1 F 08/21/18 14:33 Pulse Rate 89 08/21/18 18:13 Respiratory Rate 16 08/21/18 18:13 Blood Pressure 132/79 08/21/18 18:13 Pulse Oximetry 98 08/21/18 18:13 Medical Decision Making MDM Narrative Medical decision making narrative: Lab work shows significant lipase elevation concerning for underlying pancreatitis. CAT scan shows signs of pancreatitis as well, acute on chronic. At this point, my plan would be to admit the patient for further treatment of pancreatitis. Case is discussed with hospitalist for admission. Medical Screen Exam Complete: Yes Emergency Medical Condition: Yes Differential Diagnosis Differential Diagnosis: Gastritis versus gastroenteritis versus colitis versus pancreatitis versus other acute intra-abdominal processes Lab Data Lab results reviewed: Yes I reviewed the patient's lab results. Result diagrams: 08/21/18 16:05 08/21/18 16:05 Lab Results 08/21/18 08/21/18 08/21/18 Range/Units 16:05 16:05 17:45 CBC w Diff Slide review pending WBC 9.3 (4.0-11.0) th/mm3 RBC 5.13 (4.50-5.90) mil/mm3 Hgb 15.3 (13.0-17.0) gm/dL Hct 43.5 (39.0-51.0) % MCV 84.7 (80.0-100.0) fL MCH 29.8 (27.0-34.0) pg MCHC 35.1 (32.0-36.0) % RDW 12.8 (11.6-17.2) % Plt Count 267 (150-450) th/mm3 MPV 9.8 (7.0-11.0) fL Neut % (Auto) 80.9 H (16.0-70.0) % Lymph % (Auto) 11.7 (9.0-44.0) % [place] % (Auto) 4.7 (0.0-8.0) % Eos % (Auto) 0.2 (0.0-4.0) % Baso % (Auto) 2.5 H (0.0-2.0) % Neut # (Auto) 7.6 (1.8-7.7) th/mm3 Lymph # (Auto) 1.1 (1.0-4.8) th/mm3 [place] # (Auto) 0.4 (0.0-0.9) th/mm3 Eos # (Auto) 0.0 (0.0-0.4) th/mm3 Baso # (Auto) 0.2 (0.0-0.2) th/mm3 WBC Differential . Diff Scan Auto diff confirmed Differential Comment . Platelet Estimate Normal (Normal) Platelet Morphology Normal (Normal) RBC Morphology Normal (Normal) Sodium 135 L (136-145) meq/L Potassium 3.9 (3.5-5.1) meq/L Chloride 96 L (98-107) meq/L Carbon Dioxide 27.9 (21.0-32.0) meq/L Anion Gap 11 (5-15) meq/L BUN 29 H (7-18) mg/dL Creatinine 1.10 (0.60-1.30) mg/dL Estimated GFR 71 L (>89) mL/min Random Glucose 209 H (74-106) mg/dL Calcium 8.7 (8.5-10.1) mg/dL Total Bilirubin 1.1 H (0.2-1.0) mg/dL AST 18 (15-37) U/L ALT 30 (12-78) U/L Alkaline Phosphatase 95 (45-117) U/L Total Protein 8.5 H (6.4-8.2) g/dL Albumin 4.3 (3.4-5.0) g/dL Lipase 5874 H (73-393) U/L Urine Color Yellow (Yellw/Straw) Urine Clarity Clear (Clear) Urine pH 5.5 (5.0-8.5) Ur Specific [place] 1.020 (1.002-1.035) Urine Protein 30 H (Neg-Trace) mg/dL Urine Glucose (UA) Negative (Negative) mg/dL Urine Ketones 15 H (Negative) mg/dL Urine Occult Blood Small H (Negative) Urine Nitrate Negative (Negative) Urine Bilirubin Negative (Negative) Urine Ictotest Negative (Negative) Urine Urobilinogen 0.2 (Less than 2) mg/dL Ur Leukocyte Esterase Negative (Negative) Urine RBC 0-3 (0-3) /hpf Urine WBC 0-5 (0-5) /hpf Urine Bacteria Rare H (None) /hpf Hyaline Casts 0-3 (0-3) /lpf Urine Mucus Few H (Occasional) /lpf Micro UA Comment Culture not ind Ur Microscopic Review Microscopic reviewed Urine Culture Comments Culture not ind Imaging Data Attestation: I personally reviewed and interpreted this imaging study as follows : Radiologist's impression: Abdomen/Pelvis CT 08/21/18 15:28 CONCLUSION: 1. Chronic pancreatitis with pancreatic ductal dilatation and probable mild acute superimposed pancreatitis. 2. Persistent mural thickening of the duodenal wall but probably slightly improved since May. 3. Fatty liver. Extensive perigastric and perisplenic varices in the left upper quadrant. Also varices in the omentum. 4. No ascites. No bowel obstruction. Discharge Plan Discharge Disposition Patient Disposition: 30 Still Patient Discharge Condition Condition: Stable Discharge Details Anticipated Discharge Date: 08/21/18 Diagnosis: Pancreatitis Physicians Team ED Provider: Fitz Brand Primary Care Provider: Primary Care Physici,Emily Rxs /Orders / Referrals /Forms Prescriptions: No Action insulin regular human [Novolin R Regular U-100 Insuln] 100 unit/mL Solution 20 units Sub-Q BID RF: 0 Status ED Status: Admitted Patient
[2018-08-21 16:27] LABS: Chloride 96 meq/L (98-107); Potassium 3.9 meq/L (3.5-5.1); Sodium 135 meq/L (136-145)
[2018-08-21 16:29] LABS: Baso # (Auto) 0.2 th/mm3 (0.0-0.2); Baso % (Auto) 2.5 % (0.0-2.0); Eos % (Auto) 0.2 % (0.0-4.0); Hematocrit 43.5 % (39.0-51.0); Hemoglobin 15.3 gm/dL (13.0-17.0); Lymph # (Auto) 1.1 th/mm3 (1.0-4.8); Lymph % (Auto) 11.7 % (9.0-44.0); Mean Corpuscular HGB Conc 35.1 % (32.0-36.0); Mean Corpuscular Hemoglobin 29.8 pg (27.0-34.0); Mean Corpuscular Volume 84.7 fL (80.0-100.0); Mean Platelet Volume 9.8 fL (7.0-11.0); Mono # (Auto) 0.4 th/mm3 (0.0-0.9); Mono % (Auto) 4.7 % (0.0-8.0); Neut # (Auto) 7.6 th/mm3 (1.8-7.7); Neut % (Auto) 80.9 % (16.0-70.0); Platelet Count 267 th/mm3 (150-450); Red Blood Count 5.13 mil/mm3 (4.50-5.90); Red Cell Distribution Width 12.8 % (11.6-17.2); White Blood Count 9.3 th/mm3 (4.0-11.0)
[2018-08-21 16:30] LABS: Calcium 8.7 mg/dL (8.5-10.1)
[2018-08-21 16:31] LABS: Albumin 4.3 g/dL (3.4-5.0); Anion Gap 11 meq/L (5-15); Blood Urea Nitrogen 29 mg/dL (7-18); Carbon Dioxide 27.9 meq/L (21.0-32.0); Glucose,Random 209 mg/dL (74-106)
[2018-08-21 16:34] LABS: Alanine Aminotransferase 30 U/L (12-78); Aspartate Aminotransferase 18 U/L (15-37)
[2018-08-21 16:35] LABS: Total Protein 8.5 g/dL (6.4-8.2)
[2018-08-21 16:36] LABS: Glomerular Filtration Rate 71 mL/min (>89); Lipase 5874 U/L (73-393)
[2018-08-21 16:37] LABS: Alkaline Phosphatase 95 U/L (45-117)
[2018-08-21 16:52] LABS: Platelet Estimate Normal (Normal); Platelet Morphology Normal (Normal); RBC Morphology Normal (Normal)
[2018-08-21 17:55] LABS: Clarity,Urine Clear (Clear); Color,Urine Yellow (Yellw/Straw); Glucose,Urine (UA) Negative (Negative); Leukocyte Esterase,Urine Negative (Negative); Nitrite,Urine Negative (Negative); PH,Urine 5.5 (5.0-8.5); Urobilinogen,Urine 0.2 mg/dL (Less than 2)
[2018-08-21 17:59] LABS: Bilirubin,Urine Negative (Negative); Ictotest,Urine Negative (Negative)
[2018-08-21 18:10] LABS: Bacteria,Urine Rare /hpf; Hyaline Casts,Urine 0-3 /lpf (0-3); Mucus,Urine Few /lpf (Occasional); RBC,Urine 0-3 /hpf (0-3); WBC,Urine 0-5 /hpf (0-5)
--- NOTE | 2018-08-21 18:20 | CT ---
EXAM DATE: 08/21/2018 5:32 PM EDT AGE/SEX: 48 years / Male INDICATIONS: Upper abdominal pain. Nausea and vomiting x 3 days. CLINICAL DATA: This is the patient's initial encounter. Patient reports that signs and symptoms have been present for 3 days and indicates a pain score of 10/10. MEDICAL/SURGICAL HISTORY: Pancreatitis. Gastroesophageal reflux disease. Diabetes. Colitis. Hepatitis. None. ORAL CONTRAST: No oral contrast ingested. RADIATION DOSE: 10.35 CTDI (mGy) COMPARISON: [facility], CT ABDOMEN & PELVIS W/O CONTRAST, 06/11/2018. . TECHNIQUE: Multiple contiguous axial images were obtained through the abdomen and pelvis following b olus infusion of 90 ml Omnipaque 350 (iohexol) nonionic water-soluble contrast as a single exam dos e. No oral contrast ingested. Using automated exposure control and adjustment of the mA and/or kV ac cording to patient size, radiation dose was kept as low as reasonably achievable to obtain optimal di agnostic quality images. DICOM format image data is available electronically for review and comparis on. FINDINGS: Lung bases are clear. Mild fatty liver. Spleen, adrenals, left kidney unremarkable. Stable right negrita l cyst measuring about 3 cm since May. Stomach is mildly distended. Perisplenic and perigastric varices are present. Duodenum has a thickened wall but not quite as prominent as in May. There is chronic pancreatitis with calcifications and a chronically dilated pancreatic duct. There is some stranding of fat around the pancreatic head which may represent a superimposed mild acute pancr eatitis. No free fluid. No bowel obstruction. No adenopathy. CONCLUSION: 1. Chronic pancreatitis with pancreatic ductal dilatation and probable mild acute superimposed pancr eatitis. 2. Persistent mural thickening of the duodenal wall but probably slightly improved since May. 3. Fatty liver. Extensive perigastric and perisplenic varices in the left upper quadrant. Also varic es in the omentum. 4. No ascites. No bowel obstruction. Electronically signed by: Benton Olivas MD 08/21/2018 6:19 PM EDT
[2018-08-21] MEDS ORDERED: Dextrose 50% in Water 50 ML Vial IV.PUSH PRN (19:25)
[2018-08-21] MEDS ORDERED: Haloperidol Inj 5 MG/ML Ampul IV.PUSH PRN (19:25)
[2018-08-21] MEDS ORDERED: LORazepam 1 MG Tablet PO PRN (19:25)
[2018-08-21] MEDS ORDERED: Bisacodyl 10 MG Supp RECTAL PRN (19:26)
[2018-08-21] MEDS ORDERED: Thiamine Inj 100 MG in Sodium Chlor 0.9% Inj 100 ML IV.SIG SCH (19:30)
[2018-08-21] MEDS: Pantoprazole Inj 40 MG Vial IV.PUSH SCH (21:17)
[2018-08-21] MEDS: Insulin NovoLOG Aspart Correctional Sugar Inj SQ SCH (21:20)
[2018-08-21] MEDS: Morphine Sulfate Inj 2 MG/ML Vial IV.PUSH PRN (21:53)
[2018-08-21] MEDS: Senna/Docusate Sodium 8.6/50 MG Tablet PO SCH (22:16)
[2018-08-22] MEDS: Morphine Sulfate Inj 2 MG/ML Vial IV.PUSH PRN ×4 (05:47→22:17)
[2018-08-22 07:15] LABS: Baso % (Auto) 0.2 % (0.0-2.0); Eos % (Auto) 0.2 % (0.0-4.0); Hematocrit 39.5 % (39.0-51.0); Hemoglobin 13.8 gm/dL (13.0-17.0); Lymph # (Auto) 0.6 th/mm3 (1.0-4.8); Mean Corpuscular HGB Conc 34.9 % (32.0-36.0); Mean Corpuscular Hemoglobin 29.9 pg (27.0-34.0); Mean Corpuscular Volume 85.8 fL (80.0-100.0); Mean Platelet Volume 9.9 fL (7.0-11.0); Mono # (Auto) 0.3 th/mm3 (0.0-0.9); Mono % (Auto) 5.8 % (0.0-8.0); Neut % (Auto) 82.8 % (16.0-70.0); Platelet Count 182 th/mm3 (150-450); Red Blood Count 4.61 mil/mm3 (4.50-5.90); Red Cell Distribution Width 12.6 % (11.6-17.2); White Blood Count 5.9 th/mm3 (4.0-11.0)
[2018-08-22 07:20] LABS: Chloride 101 meq/L (98-107); Potassium 3.8 meq/L (3.5-5.1); Sodium 137 meq/L (136-145)
[2018-08-22 07:31] LABS: Alanine Aminotransferase 25 U/L (12-78); Albumin 3.5 g/dL (3.4-5.0); Alkaline Phosphatase 77 U/L (45-117); Anion Gap 9 meq/L (5-15); Aspartate Aminotransferase 14 U/L (15-37); Blood Urea Nitrogen 23 mg/dL (7-18); Carbon Dioxide 26.8 meq/L (21.0-32.0); Glomerular Filtration Rate Greater Than 89 mL/min (>89); Glucose,Random 199 mg/dL (74-106); Lipase 3006 U/L (73-393); Total Protein 7.1 g/dL (6.4-8.2)
[2018-08-22] MEDS: Pantoprazole Inj 40 MG Vial IV.PUSH SCH ×2 (08:17→21:27)
[2018-08-22] MEDS: Insulin NovoLOG Aspart Correctional Sugar Inj SQ SCH ×4 (08:17→21:42)
[2018-08-22] MEDS: Senna/Docusate Sodium 8.6/50 MG Tablet PO SCH ×2 (08:18→21:42)
[2018-08-22] MEDS: Folic Acid 1 MG Tablet PO SCH (08:18)
--- NOTE | 2018-08-22 08:49 | P.HP ---
History of Present Illness Primary Care Physician: No Primary Care Physician Chief Complaint: Abdominal pain History of Present Illness: This is a pleasant 48-year-old male patient with a known medical history of colitis, pancreatitis, duodenitis, hepatitis, diabetes who presented to the ED with complaints of nausea, vomiting and abdominal pain 3 days. Patient is Ukrainian-speaking and [employer] interpreting services has been used for assistance in communication. Patient states that he was celebrating his birthday and was drinking beer for 2 days in a row, states that shortly after consumption he became severely sick with severe abdominal pain, nausea and vomiting. He states he has been unable to keep anything down for the past 4 days. His abdominal pain is diffuse, rated a 10 out of 10 at its worst on pain scale. He denies any recent fevers, chills, headache, shortness of breath, diarrhea or dysuria at home. Patient was admitted in May of this year for similar complaints, was diagnosed with pancreatitis at that time as well as duodenitis was followed with gastroenterology and underwent an EGD. Patient states that since that discharge he has stopped drinking alcohol completely and this is his first time consuming alcohol since discharge. He had been doing relatively well since last admission. Patient does have a history of diabetes, does take insulin at home this is been well controlled. - Diagnosis (1) Pancreatitis Inpatient Certification: I certify that the inpatient services were ordered in accordance with Medicare regulations governing the order. This includes certification that hospital inpatient services are reasonable and necessary and in the case of services not specified as inpatient-only under 42 CFR 419.22(n), that they are appropriately provided as inpatient services in accordance to with the 2-midnight benchmark under 43 CFR 412.3(e) Estimated Total Length of Stay (Days): 2 Plans for Post Hospital Care: Not yet determined Review of Systems All other systems reviewed negative except as stated in HPI PMFSH - History History Provided By: Patient - Medical History Medical History: Medical History (Last Reviewed 08/22/18 @ 09:03 by Vicky Castellon) Reflux gastritis (Acute) Anxiety (Acute) Hepatitis (Acute) Pancreatitis (Acute) Diabetes mellitus (Acute) Hernia (Acute) - Surgical History Surgical History: Surgical History (Last Reviewed 08/22/18 @ 09:03 by Vicky Castellon) History of surgical procedure on eye proper using laser (Acute) Hx of tonsillectomy (Acute) - Family History Family History: Family History (Last Reviewed 08/22/18 @ 09:03 by Vicky Castellon) Other No significant family history - Tobacco History Second Hand Smoke Exposure: No Tobacco Use In Past 30 Days: No Smoking Status: Former smoker Tobacco Type: Cigarettes - Alcohol History How Often Do You Have a Drink Containing Alcohol: 4 or more times a week - Substance Use History Substance History: Past History - Travel History Recent Travel in the [place] Within the Last 8 Weeks: No Recent Travel Out of the Country Within the Last 8 Weeks: No - Immunization History Tetanus Immunization: >5 Years Hx Influenza Vaccine This Season: No Medications and Allergies Active Medications: Active Medications Al Hydroxide/Mg Hydroxide (Milk Of Magnesia Liq) 30 ml PO Q12H PRN PRN Reason: Mild Constipation Bisacodyl (Dulcolax Supp) 10 mg RECTAL DAILY PRN PRN Reason: SEVERE CONSITIPATION Dextrose (D50w Vial) 50 ml IV.PUSH UNSCH PRN PRN Reason: PER HYPOGLYCEMIA PROTOCOL Flumazenil (Romazecon Inj) 0.2 mg IV.PUSH Q1M PRN PRN Reason: OVERSEDATION Folic Acid (Folic Acid) 1 mg PO DAILY PILAR Stop: 08/27/18 08:59 Last Admin: 08/22/18 08:18 Dose: 1 mg Glucagon (Glucagon Inj) 1 mg OTHER PRN PRN PRN Reason: for Hypoglycemia Protocol Haloperidol Lactate (Haldol Inj) 1 mg IV.PUSH Q15M PRN PRN Reason: for severe agitation Thiamine HCl 100 mg/ Sodium (Chloride) 101 mls @ 100 mls/hr IV.SIG DAILY PILAR Stop: 08/24/18 10:01 Potassium Chloride/Sodium Chloride (Ns + Kcl 20 Meq Inj) 1,000 mls @ 84 mls/hr IV.CONT .[id number] PILAR Last Admin: 08/22/18 05:46 Dose: 84 mls/hr Insulin Aspart (Novolog Insulin Correctional Sugar Inj) 0 unit SQ ACHS PILAR; Protocol Last Admin: 08/22/18 08:17 Dose: Not Given Lactulose (Lactulose Liq) 30 ml PO DAILY PRN PRN Reason: SEVERE CONSITIPATION Lorazepam (Ativan) 1 mg PO Q4H PRN PRN Reason: for CIWA 8-10 Last Admin: 08/22/18 08:18 Dose: 1 mg Lorazepam (Ativan) 2 mg PO Q2H PRN PRN Reason: for CIWA 11-14 Lorazepam (Ativan Inj) 2 mg IV.PUSH Q2H PRN PRN Reason: for CIWA 11-14 Lorazepam (Ativan Inj) 2 mg IV.PUSH Q1H PRN PRN Reason: for CIWA 15-20 Lorazepam (Ativan Inj) 2 mg IV.PUSH Q15M PRN PRN Reason: for CIWA > 20 Lorazepam (Ativan Inj) 1 mg IV.PUSH Q4H PRN PRN Reason: for CIWA 8-10 Morphine Sulfate (Morphine Inj) 2 mg IV.PUSH Q4H PRN PRN Reason: PAIN 6-10 Last Admin: 08/22/18 05:47 Dose: 2 mg Multivitamins/Minerals (Theragran-M) 1 tab PO DAILY [facility] Stop: 08/27/18 08:59 Ondansetron HCl (Zofran Inj) 4 mg IV.PUSH Q6H PRN PRN Reason: NAUSEA OR VOMITING Last Admin: 08/22/18 05:47 Dose: 4 mg Pantoprazole Sodium (Protonix Inj) 40 mg IV.PUSH Q12H [facility] Last Admin: 08/22/18 08:17 Dose: 40 mg Senna/Docusate Sodium (Kari-Colace) 1 tab PO BID [facility] Last Admin: 08/22/18 08:18 Dose: 1 tab Sennosides (Senokot) 17.2 mg PO Q12H PRN PRN Reason: Moderate Constipation Sodium Chloride (Ns Flush) 2 ml IV.FLUSH PRN PRN PRN Reason: FLUSH AFTER USING IV ACCESS Last Admin: 08/21/18 16:23 Dose: 2 ml Thiamine HCl (Vitamin B1) 100 mg PO DAILY [facility] Allergies Allergy/AdvReac Type Severity Reaction Status Date / Time No Known Allergies Allergy Verified 08/21/18 16:39 Home Medications Medication Instructions Recorded Confirmed Type insulin regular human [Novolin R 20 units SUB-Q BID 06/11/18 History Regular U-100 Insuln] Exam Vital signs: Vital Signs 08/21/18 14:33 08/21/18 16:50 08/21/18 17:15 Temperature 98.1 F Pulse Rate 86 84 Respiratory Rate 16 16 16 Blood Pressure 119/83 132/80 Pulse Oximetry 97 100 09/21/18 18:13 08/21/18 20:00 08/21/18 20:02 Temperature 98.9 F Pulse Rate 89 67 71 Respiratory Rate 16 18 16 Blood Pressure 132/79 156/77 H 139/85 Pulse Oximetry 98 95 99 08/21/18 21:59 08/22/18 00:00 Temperature 98.8 F Pulse Rate 64 Respiratory Rate 16 18 Blood Pressure 138/72 150/79 H Pulse Oximetry 95 Intake & Output 08/21/18 08/22/18 08/22/18 18:59 06:59 18:59 Intake Total 1000 / 1000 Balance 1000 / 1000 Weight 72.2 kg 72.9 kg Intake: IV 1000 / 1000 NS Inj 1,000 ML @ Wide Open IV. 1000 / 1000 SIG BOLUS ONE Rx#:[id number] Other: # Voids 3 Weight On Admission 72.7 kg Narrative: GENERAL: Well-developed, well-nourished patient with complaints of abdominal pain. SKIN: Warm and dry. No rash. HEAD: Normocephalic. Atraumatic. EYES: Pupils equal and round. No scleral icterus. No injection or drainage. ENT: No nasal bleeding or discharge. Mucous membranes pink and moist. NECK: Supple. Trachea midline. CARDIOVASCULAR: Regular rate and rhythm. S1, S2 noted. No murmur appreciated. RESPIRATORY: No accessory muscle use. Clear to auscultation. Breath sounds equal bilaterally. GASTROINTESTINAL: Abdomen soft, tenderness diffusely on palpation, nondistended. Normoactive bowel sounds x4. MUSCULOSKELETAL: No obvious deformities. Extremities without clubbing, cyanosis , or edema. NEUROLOGICAL: Awake and alert. No obvious cranial nerve deficits. Motor grossly within normal limits. 5/5 muscle strength in bilateral upper and lower extremities. Normal speech. PSYCHIATRIC: Appropriate mood and affect; insight and judgment normal. Results - Labs CBC & Chem 7: 08/22/18 06:30 08/22/18 06:30 Labs: Laboratory Results - last 24 hr 08/21/18 08/21/18 08/21/18 16:05 16:05 17:45 CBC w Diff Slide review pending WBC 9.3 RBC 5.13 Hgb 15.3 Hct 43.5 MCV 84.7 MCH 29.8 MCHC 35.1 RDW 12.8 Plt Count 267 MPV 9.8 Neut % (Auto) 80.9 H Lymph % (Auto) 11.7 [place] % (Auto) 4.7 Eos % (Auto) 0.2 Baso % (Auto) 2.5 H Neut # (Auto) 7.6 Lymph # (Auto) 1.1 [place] # (Auto) 0.4 Eos # (Auto) 0.0 Baso # (Auto) 0.2 WBC Differential . Diff Scan Auto diff confirmed Differential Comment . Platelet Estimate Normal Platelet Morphology Normal RBC Morphology Normal Sodium 135 L Potassium 3.9 Chloride 96 L Carbon Dioxide 27.9 Anion Gap 11 BUN 29 H Creatinine 1.10 Estimated GFR 71 L POC Glucose Random Glucose 209 H Calcium 8.7 Total Bilirubin 1.1 H AST 18 ALT 30 Alkaline Phosphatase 95 Total Protein 8.5 H Albumin 4.3 Lipase 5874 H Urine Color Yellow Urine Clarity Clear Urine pH 5.5 Ur Specific [place] 1.020 Urine Protein 30 H Urine Glucose (UA) Negative Urine Ketones 15 H Urine Occult Blood Small H Urine Nitrate Negative Urine Bilirubin Negative Urine Ictotest Negative Urine Urobilinogen 0.2 Ur Leukocyte Esterase Negative Urine RBC 0-3 Urine WBC 0-5 Urine Bacteria Rare H Hyaline Casts 0-3 Urine Mucus Few H Micro UA Comment Culture not ind Ur Microscopic Review Microscopic reviewed Urine Culture Comments Culture not ind 08/21/18 08/22/18 08/22/18 20:08 06:30 06:30 CBC w Diff Auto diff final WBC 5.9 RBC 4.61 Hgb 13.8 Hct 39.5 MCV 85.8 MCH 29.9 MCHC 34.9 RDW 12.6 Plt Count 182 D MPV 9.9 Neut % (Auto) 82.8 H Lymph % (Auto) 11.0 [place] % (Auto) 5.8 Eos % (Auto) 0.2 Baso % (Auto) 0.2 Neut # (Auto) 5.0 Lymph # (Auto) 0.6 L [place] # (Auto) 0.3 Eos # (Auto) 0.0 Baso # (Auto) 0.0 WBC Differential . Diff Scan Differential Comment . Platelet Estimate Platelet Morphology RBC Morphology Sodium 137 Potassium 3.8 Chloride 101 Carbon Dioxide 26.8 Anion Gap 9 BUN 23 H Creatinine 0.82 Estimated GFR Greater than 89 POC Glucose 156 H Random Glucose 199 H Calcium 8.0 L Total Bilirubin 1.0 AST 14 L ALT 25 Alkaline Phosphatase 77 Total Protein 7.1 D Albumin 3.5 D Lipase 3006 H Urine Color Urine Clarity Urine pH Ur Specific [place] Urine Protein Urine Glucose (UA) Urine Ketones Urine Occult Blood Urine Nitrate Urine Bilirubin Urine Ictotest Urine Urobilinogen Ur Leukocyte Esterase Urine RBC Urine WBC Urine Bacteria Hyaline Casts Urine Mucus Micro UA Comment Ur Microscopic Review Urine Culture Comments 08/22/18 07:36 CBC w Diff WBC RBC Hgb Hct MCV MCH MCHC RDW Plt Count MPV Neut % (Auto) Lymph % (Auto) [place] % (Auto) Eos % (Auto) Baso % (Auto) Neut # (Auto) Lymph # (Auto) [place] # (Auto) Eos # (Auto) Baso # (Auto) WBC Differential Diff Scan Differential Comment Platelet Estimate Platelet Morphology RBC Morphology Sodium Potassium Chloride Carbon Dioxide Anion Gap BUN Creatinine Estimated GFR POC Glucose 197 H Random Glucose Calcium Total Bilirubin AST ALT Alkaline Phosphatase Total Protein Albumin Lipase Urine Color Urine Clarity Urine pH Ur Specific [place] Urine Protein Urine Glucose (UA) Urine Ketones Urine Occult Blood Urine Nitrate Urine Bilirubin Urine Ictotest Urine Urobilinogen Ur Leukocyte Esterase Urine RBC Urine WBC Urine Bacteria Hyaline Casts Urine Mucus Micro UA Comment Ur Microscopic Review Urine Culture Comments - Imaging Impressions Abdomen/Pelvis CT 08/21/18 15:28 CONCLUSION: 1. Chronic pancreatitis with pancreatic ductal dilatation and probable mild acute superimposed pancreatitis. 2. Persistent mural thickening of the duodenal wall but probably slightly improved since May. 3. Fatty liver. Extensive perigastric and perisplenic varices in the left upper quadrant. Also varices in the omentum. 4. No ascites. No bowel obstruction. Caprini VTE Risk Assessment Caprini VTE Risk Assessment: No/Low Risk (score <= 1) Caprini Risk Assessment Model: Point Value = 1 Point Value = 2 Point Value = 3 Point Value = 5 Age 41-60 Minor surgery BMI > 25 kg/m2 Swollen legs Varicose veins or History of unexplained or recurrent spontaneous Oral contraceptives or hormone replacement Sepsis (< 1 month) Serious lung disease, including pneumonia (< 1 month) Abnormal pulmonary function Acute myocardial infarction Congestive heart failure (< 1 month) History of inflammatory bowel disease Medical patient at bed rest Age 61-74 Arthroscopic surgery Major open surgery (> 45 min) Laparoscopic surgery (> 45 min) Malignancy Confined to bed (> 72 hours) Immobilizing plaster cast Central venous access Age >= 75 History of VTE Family history of VTE Factor V Leiden Prothrombin [id number] Lupus anticoagulant Anticardiolipin antibodies Elevated serum homocysteine Heparin-induced thrombocytopenia Other congenital or acquired thrombophilia Stroke (< 1 month) Elective arthroplasty Hip, pelvis, or leg fracture Acute spinal cord injury (< 1 month) Prophylaxis Regimen: Total Risk Factor Score Risk Level Prophylaxis Regimen 0-1 Low Early ambulation 2 Moderate Order ONE of the following: *Sequential Compression Device (SCD) *Heparin 5000 units SQ BID 3-4 Higher Order ONE of the following medications: *Heparin 5000 units SQ TID *Enoxaparin/Lovenox 40 mg SQ daily (WT < 150 kg, CrCl > 30 mL/min) *Enoxaparin/Lovenox 30 mg SQ daily (WT < 150 kg, CrCl > 10-29 mL/min) *Enoxaparin/Lovenox 30 mg SQ BID (WT < 150 kg, CrCl > 30 mL/min) AND/OR *Sequential Compression Device (SCD) 5 or more Highest Order ONE of the following medications: *Heparin 5000 units SQ TID (Preferred with Epidurals) *Enoxaparin/Lovenox 40 mg SQ daily (WT < 150 kg, CrCl > 30 mL/min) *Enoxaparin/Lovenox 30 mg SQ daily (WT < 150 kg, CrCl > 10-29 mL/min) *Enoxaparin/Lovenox 30 mg SQ BID (WT < 150 kg, CrCl > 30 mL/min) AND *Sequential Compression Device (SCD) Assessment and Plan - Assessment (1) Pancreatitis Code(s): K85.90 - Acute pancreatitis without necrosis or infection, unspecified Status: Acute - Plan This is a 48-year-old male with: Acute pancreatitis -Patient presented 3 day complaint of nausea, vomiting and abdominal pain secondary to alcohol. -Lipase over 5000 upon presentation. Trending down today. Will follow. -Abdominal/pelvis CT reviewed and showing acute on chronic pancreatitis with pancreatic ductal dilation. -Will allow clear liquids as tolerated. Pain control with IV narcotics as needed. Continue IV fluid. -Monitor for improvement. Type 2 diabetes mellitus, chronic -Patient takes insulin at home. ACCU check ACHS, sliding scale, cover as needed. Follow blood sugar trends. -Monitor for hypoglycemia. Alcohol use -Patient states he only drank 2 days for his birthday celebration. Since last admission he states that he has quit alcohol. -Patient has been encouraged to stop drinking alcohol completely. -Monitor for any withdrawals no signs of withdrawal at this time. DVT Prophylaxis: SCDs. Ambulation. Discharge Planning: Await clinical improvement.
[2018-08-22] MEDS: Thiamine Inj 100 MG in Sodium Chlor 0.9% Inj 100 ML IV.SIG SCH (11:03)
[2018-08-22] MEDS: Multivitamin/Minerals Therapeutic Tablet PO SCH (11:04)
[2018-08-23] MEDS: Morphine Sulfate Inj 2 MG/ML Vial IV.PUSH PRN ×4 (02:34→19:29)
[2018-08-23] MEDS: Pantoprazole Inj 40 MG Vial IV.PUSH SCH ×2 (08:26→21:25)
[2018-08-23] MEDS: Multivitamin/Minerals Therapeutic Tablet PO SCH (08:27)
[2018-08-23] MEDS: Thiamine Inj 100 MG in Sodium Chlor 0.9% Inj 100 ML IV.SIG SCH (08:27)
[2018-08-23] MEDS: Folic Acid 1 MG Tablet PO SCH (08:27)
[2018-08-23] MEDS: Senna/Docusate Sodium 8.6/50 MG Tablet PO SCH ×2 (08:27→21:26)
--- NOTE | 2018-08-23 08:47 | P.PNIM ---
Subjective Interval history: Follow-up acute pancreatitis. Patient seen and examined, lying in bed. Interpreting services used to communicate with patient today. Patient states that he did have a couple bouts of emesis overnight. He does feel improved this morning although he does complain of intermittent nausea. He had some clear liquids this morning, has been tolerating since. Afebrile overnight. Vital signs stable. Pain is controlled with current regimen. Will assess over the day, if doing well will discharge later today. If not goals tomorrow morning for discharge. Physical Exam Vital signs: Vital Signs 08/22/18 12:00 08/22/18 12:50 08/22/18 16:00 Temperature 98.3 F 98.4 F Pulse Rate 74 67 Respiratory Rate 20 20 20 Blood Pressure 138/84 140/78 Pulse Oximetry 97 98 08/22/18 20:00 08/23/18 00:00 Temperature 98.9 F 99.3 F Pulse Rate 70 67 Respiratory Rate 18 18 Blood Pressure 132/76 158/84 H Pulse Oximetry 96 97 Intake & Output 08/22/18 08/23/18 08/23/18 18:59 06:59 18:59 Intake Total 1862 / 1862 1320 / 1320 Output Total 450 / 450 600 / 600 Balance 1412 / 1412 720 / 720 Weight 73.1 kg Intake: IV 1101 / 1101 1000 / 1000 NS + KCl 20 mEq Inj 1,000 ML @ 1000 / 1000 1000 / 1000 84 mls/hr IV.CONT .[id number] PILAR Rx#:[id number] Thiamine Inj 100 MG In NS Inj 101 / 101 100 ML @ 100 mls/hr IV.SIG DAILY PILAR Rx#:[id number] Oral 761 / 761 320 / 320 Output: Urine 450 / 450 600 / 600 Other: # Voids 1 3 Date of Last Bowel Movement 08/22/18 Narrative: GENERAL: Well-developed, well-nourished patient in NAD. SKIN: Warm and dry. No rash. HEAD: Normocephalic. Atraumatic. EYES: Pupils equal and round. No scleral icterus. No injection or drainage. ENT: No nasal bleeding or discharge. Mucous membranes pink and moist. NECK: Supple. Trachea midline. CARDIOVASCULAR: Regular rate and rhythm. S1, S2 noted. No murmur appreciated. RESPIRATORY: No accessory muscle use. Clear to auscultation. Breath sounds equal bilaterally. GASTROINTESTINAL: Abdomen soft, nondistended. Normoactive bowel sounds x4. Mild tenderness to bilateral lower quadrants. MUSCULOSKELETAL: No obvious deformities. Extremities without clubbing, cyanosis , or edema. NEUROLOGICAL: Awake and alert. No obvious cranial nerve deficits. Motor grossly within normal limits. 5/5 muscle strength in bilateral upper and lower extremities. Normal speech. PSYCHIATRIC: Appropriate mood and affect; insight and judgment normal. Results - Labs CBC & Chem 7: 08/22/18 06:30 08/22/18 06:30 Laboratory Results - last 24 hr 08/22/18 08/22/18 08/22/18 11:39 18:14 21:32 POC Glucose 193 H 177 H 145 H Lipase 08/23/18 06:35 POC Glucose Lipase 1687 H Assessment and Plan - Assessment (1) Pancreatitis Code(s): K85.90 - Acute pancreatitis without necrosis or infection, unspecified Status: Acute - Plan This is a 48-year-old male with: Acute pancreatitis -Patient presented 3 day complaint of nausea, vomiting and abdominal pain secondary to alcohol. -Lipase over 5000 upon presentation. Trending down today. -Abdominal/pelvis CT reviewed and showing acute on chronic pancreatitis with pancreatic ductal dilation. -Will allow clear liquids as tolerated. Has been tolerating this morning. Complains of couple bouts of emesis overnight. Antiemetics as needed. Pain control with IV narcotics as needed. Continue IV fluid. -Monitor for improvement. Type 2 diabetes mellitus, chronic -Patient takes insulin at home. ACCU check ACHS, sliding scale, cover as needed. Follow blood sugar trends. -Monitor for hypoglycemia. Alcohol use -Patient states he only drank 2 days for his birthday celebration. Since last admission he states that he has quit alcohol. -Patient has been encouraged to stop drinking alcohol completely. -Monitor for any withdrawals no signs of withdrawal at this time. DVT Prophylaxis: SCDs. Ambulation. Discharge Planning: Await clinical improvement.
[2018-08-23] MEDS: Insulin NovoLOG Aspart Correctional Sugar Inj SQ SCH ×4 (09:26→21:59)
[2018-08-23] MEDS ORDERED: Acetaminophen 325 MG Tablet PO PRN (22:03)
[2018-08-24] MEDS: Morphine Sulfate Inj 2 MG/ML Vial IV.PUSH PRN ×2 (00:08→04:11)
--- NOTE | 2018-08-24 07:56 | P.DS ---
Date of admission: 08/21/18 19:26 Primary care physician: No Primary Care Physician Brief History from admission: This is a pleasant 48-year-old male patient with a known medical history of colitis, pancreatitis, duodenitis, hepatitis, diabetes who presented to the ED with complaints of nausea, vomiting and abdominal pain 3 days. Patient is [place]-speaking and [employer] interpreting services has been used for assistance in communication. Patient states that he was celebrating his birthday and was drinking beer for 2 days in a row, states that shortly after consumption he became severely sick with severe abdominal pain, nausea and vomiting. He states he has been unable to keep anything down for the past 4 days. His abdominal pain is diffuse, rated a 10 out of 10 at its worst on pain scale. He denies any recent fevers, chills, headache, shortness of breath, diarrhea or dysuria at home. Patient was admitted in May of this year for similar complaints, was diagnosed with pancreatitis at that time as well as duodenitis was followed with gastroenterology and underwent an EGD. Patient states that since that discharge he has stopped drinking alcohol completely and this is his first time consuming alcohol since discharge. He had been doing relatively well since last admission. Patient does have a history of diabetes, does take insulin at home this is been well controlled. Patient update on day of discharge: Patient follow up acute pancreatitis. Patient seen and examined, doing much improved. Tolerating PO intake without any pain or emesis. Patient is doing well. Pain controlled. DS: Diagnosis - Discharge Diagnosis (1) Pancreatitis Status: Acute DS: Medications - Discharge Medications Prescriptions: hydrocodone-acetaminophen [[place]] 1 tab PO Q6H PRN #5 tab PRN Reason: Pain pantoprazole [Protonix] 20 mg PO DAILY 14 Days #14 tab DS: Summary Hospital Course: This is a 48-year-old male who presented 3 day complaint of nausea, vomiting and abdominal pain secondary to alcohol. Lipase over 5000 upon presentation. Trending down over hospitalization. Abdominal/pelvis CT reviewed and showing acute on chronic pancreatitis with pancreatic ductal dilation. Tolerating PO liquid diet without any problems. Pain control with IV narcotics during hospitalization. Switched to PO pain medications. Patient does have a history of type 2 diabetes mellitus, chronic. Patient takes insulin at home. Alcohol use at home. Patient states he only drank 2 days for his birthday celebration. Since last admission he states that he has quit alcohol. Patient has been encouraged to stop drinking alcohol completely. He expresses a desire to quit. Patient was stabilized on day of dc, pain controlled, no emesis. Dcd home to follow up with PCP. - Time Spent with Patient Total time spent providing and/or coordinating discharge services: Greater than 30 minutes - Quality: VTE Deep Vein Thrombosis/Pulmonary Embolism Present on Admission: No Exam Vital signs: Vital Signs 08/23/18 08:00 08/23/18 12:00 08/23/18 16:00 Temperature 98.2 F 98.0 F 98.4 F Pulse Rate 63 69 66 Respiratory Rate 17 16 16 Blood Pressure 140/70 134/75 129/77 Pulse Oximetry 98 97 96 08/23/18 16:11 08/23/18 20:00 08/23/18 23:46 Temperature 96.7 F L 98 F Pulse Rate 65 54 L Respiratory Rate 20 20 20 Blood Pressure 132/80 156/81 H Pulse Oximetry 97 98 Intake & Output 08/23/18 08/24/18 08/24/18 18:59 06:59 18:59 Intake Total 2060 / 2060 1350 / 1350 Output Total 1550 / 1550 Balance 2060 -200 / -200 Weight 74 kg Intake: IV 1101 / 1101 1000 / 1000 NS + KCl 20 mEq Inj 1,000 ML @ 1000 / 1000 1000 / 1000 84 mls/hr IV.CONT .[id number] PILAR Rx#:[id number] Thiamine Inj 100 MG In NS Inj 101 / 101 100 ML @ 100 mls/hr IV.SIG DAILY PILAR Rx#:[id number] Oral 960 / 960 350 / 350 Output: Urine 1150 / 1150 Emesis 400 / 400 Other: # Voids 6 6 Date of Last Bowel Movement 08/22/18 08/22/18 # Bowel Movements 0 0 # Emeses 1 # Oral Regurgitations 2 - Constitutional no acute distress - Routine HEENT Exam Head: Present: normocephalic Eye: Present: EOMI, PERRL - Routine Neck Exam Present: supple - Routine Cardiovascular Exam Present: RRR - Routine Abdominal Exam Present: soft Comments: no pain to palpation - Routine Skin Exam Present: intact - Routine Neurological Exam Present: alert, oriented X3 Results Procedures completed during hospitalization: None Labs on day of discharge: Labs from last 24 hours 08/23/18 08/23/18 08/23/18 21:56 16:55 11:33 POC Glucose 167 H 169 H 268 H 08/23/18 09:13 POC Glucose 219 H - Impressions ITS Impressions Abdomen/Pelvis CT 08/21/18 15:28 CONCLUSION: 1. Chronic pancreatitis with pancreatic ductal dilatation and probable mild acute superimposed pancreatitis. 2. Persistent mural thickening of the duodenal wall but probably slightly improved since May. 3. Fatty liver. Extensive perigastric and perisplenic varices in the left upper quadrant. Also varices in the omentum. 4. No ascites. No bowel obstruction. Discharge Plan - Discharge Disposition Patient Disposition: Discharge Home - Discharge Condition Condition: Stable - Discharge Order Discharge Orders: Discharge Order (Routine); Ordered 08/24/18 Ordered By: Vicky Castellon - Discharge Details Anticipated Discharge Date: 08/24/18 - Physicians Team Primary Care Provider: Primary Care Kandace,Emily Attending Provider: Abdi Bartlett
[2018-08-24 08:12] VITALS: BP 125/76; PULSE 71; RESP 18; TEMP 98.4; O2SAT 95
== END 2018-08-24 09:42 | disposition home or self-care (01) ==
LOC: PHED 14:25 → PHEDA 19:26 → PH3 22:14
PROVIDERS: ADMIT Internal Medicine; ATTEND Internal Medicine